=== PATIENT | male | born 1990 | race Caucasian/White ===

== ENCOUNTER 2016-03-22 17:56 | Inpatient (IN) | payer OTHER ==
[~2016-03-22] VITALS: Ht 152.4 cm; Wt 82.3 kg
[2016-03-22 18:33] VITALS: Ht 152.4 cm; Wt 82.3 kg
[2016-03-22] MEDS ORDERED: SOD CHLORIDE 0.9% 1,000 ML IV STA ×2 (18:40→22:02)
[2016-03-22] MEDS ORDERED: HYDROmorphONE 1 MG/ML SYG IV STA ×3 (18:40→22:02)
[2016-03-22] MEDS ORDERED: ONDANSETRON 4 MG INJ IV STA ×3 (18:40→22:02)
--- NOTE | 2016-03-22 19:20 | ERA ---
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 The patient states that the pain again to radiate throughout the entire abdomen. The pain was 10 out of 10 in intensity. The patient felt nauseous and had induced emesis which did not improve his symptoms. He stated there was roughly 5 episodes of nonbloody nonbilious emesis again that he had induced. The patient is wheelchair-bound as he is paralyzed from the waist down and the patient has an indwelling Miranda catheter that was recently changed 4 days ago at [facility]. He did not take any analgesic medication prior to arrival. He denies any recent or remote blunt or penetrating abdominal wall trauma. He has had no fevers no shaking or chills. He denies any chest pain or pressure that radiates to the neck arm back or jaw. He has never had any similar pain in the past ROS All systems reviewed and are negative except as per history of present illness. Medications Home Meds No Active Prescriptions or Reported Meds Allergies Allergies: Coded Allergies: No Known Allergy (Unverified , 03/22/16) PMhx/Soc History of Surgery: Yes (back and leg unspecified) Anesthesia Reaction: No Hx Neurological Disorder: Yes (spina bifida) Hx Respiratory Disorders: No Hx Cardiac Disorders: No Hx Psychiatric Problems: No Hx Miscellaneous Medical Probl: No Hx Alcohol Use: No Hx Substance Use: Yes (hx meth 5 years ago) Hx Tobacco Use: No Physical Exam Vitals Vital Signs Date Time Temp Pulse Resp B/P Pulse Ox O2 Delivery O2 Flow Rate FiO2 03/22/16 21:24 99.0 84 18 104/77 97 Room Air 03/22/16 19:09 100.1 78 18 108/82 97 Room Air 03/22/16 18:33 100.4 98 18 138/74 97 Physical Exam Constitutional:Well-developed. Well-nourished. Patient appeared to be in a significant amount discomfort secondary to pain HEENT:Normocephalic. Atraumatic.Pupils were equal round reactive to light. Dry mucous membranes.No tonsillar exudates. Neck: No nuchal rigidity. No lymphadenopathy. No posterior cervical spine tenderness or step-offs. Respiratory: Not using accessory muscles of respiration.Lungs were clear to auscultation bilaterally. No rhonchi. No rales. No wheezing. Cardiovascular: Regular rate regular rhythm.No murmurs. No rubs were appreciated.S1, S2 normal. Distal pulses are palpable 2+ bilaterally. GI: Abdomen was soft. Right upper quadrant tenderness and epigastric tenderness. Hypoactive bowel sounds. Muscle skeletal: Patient is paralyzed from the waist down with no movement of the bilateral lower extremities. Full range of motion of bilateral upper extremities peer Skin: No petechia, no purpura. No lesions on the palms or the soles of the feet. No maculopapular rash. Stage I ulcers of the lateral aspect of the bilateral lower extremities with no surrounding erythema warmth tenderness fluctuance or induration and no pain out of proportion no subcutaneous emphysema. Chronic decubitus ulcers stage III with no surrounding erythema warmth tenderness fluctuance or induration. NEURO: Patient was alert, awake, orientated x3.No facial droop. Patient is wheelchair-bound. Result Diagram: 03/22/16192003/22/161920 Results 24 hrs Laboratory Tests Test 03/22/16 19:21 03/22/16 20:16 Activated Partial Thromboplast Time 28.0Sec Alanine Aminotransferase (ALT/SGPT) 63IU/L Albumin 3.7g/dl Albumin/Globulin Ratio 1.00 Alkaline Phosphatase 552IU/L Amylase Level 70U/L Anion Gap 18 Aspartate Amino Transf (AST/SGOT) 118IU/L Band Neutrophils % 4.0% Basophils # 0.510^3/ul Basophils % 3.0% Blood Morphology Comment Blood Urea Nitrogen 10mg/dl Calcium Level 8.7mg/dl Carbon Dioxide Level 24mmol/L Chloride Level 108mmol/L Creatinine 0.55mg/dl Direct Bilirubin 0.00mg/dl Globulin 3.70g/dl Glucose Level 114mg/dl Hematocrit 34.5% Hemoglobin 11.0g/dl INR International Normalized Ratio 1.02 Indirect Bilirubin 0.1mg/dl Lactic Acid Level 2.5mmol/L Lipase 236U/L Lymphocytes # 2.010^3/ul Lymphocytes % 11.0% Mean Corpuscular Hemoglobin 23.9pg Mean Corpuscular Hemoglobin Concent 31.8g/dl Mean Corpuscular Volume 75.2fl Mean Platelet Volume 7.5fl Monocytes # 0.410^3/ul Monocytes % 2.0% Myelocytes # 0.2 Myelocytes % 1.0% Neutrophils # 14.110^3/ul Neutrophils % 79.0% Platelet Count 27435^3/UL Platelet Estimate PLT APPEAR INCREASED Potassium Level 4.4mmol/L Prothrombin Time 13.4Sec Prothrombin Time Ratio 1.0 Red Blood Count 4.5910^6/ul Red Cell Distribution Width 19.4% Sodium Level 146mmol/L Total Bilirubin 0.1mg/dl Total Protein 7.4g/dl Troponin I < 0.012ng/ml White Blood Count 17.810^3/ul Urine Bacteria MANY Urine Bilirubin NEGATIVE Urine Clarity CLEAR Urine Color YELLOW Urine Glucose NEGATIVE% Urine Hemoglobin 2+ Urine Ketones NEGATIVE Urine Leukocyte Esterase 3+ Urine Microscopic RBC 2-5/HPF Urine Microscopic WBC >200/HPF Urine Nitrite POSITIVE Urine Specific Berne 1.010 Urine Squamous Epithelial Cells FEW Urine Total Protein NEGATIVE Urine Urobilinogen 0.2 E.U./dL Urine pH 7.0 Current Medications Medications (Trade) Dose Ordered Sig/Fatoumata Route PRN Reason Start Time Stop Time Status Last Admin Dose Admin Sodium Chloride (NS) 1,000 ml @ 1,000 mls/hr Q1H STAT IV 03/22/16 18:40 03/22/16 19:39 DC 03/22/16 18:56 Hydromorphone HCl (Dilaudid) 1 mg ONCE STAT IV 03/22/16 18:40 03/22/16 18:41 DC 03/22/16 18:55 Ondansetron HCl (Zofran Inj) 4 mg ONCE STAT IV 03/22/16 18:40 03/22/16 18:41 DC 03/22/16 18:55 Acetaminophen (Tylenol Tab) 1,000 mg ONCE STAT PO 03/22/16 19:50 03/22/16 19:51 DC 03/22/16 19:56 Ibuprofen (Motrin) 800 mg ONCE ONCE PO 03/22/16 20:00 03/22/16 20:01 DC 03/22/16 19:56 IV Flush 10 ml 10 ml STK-MED ONCE .ROUTE 03/22/16 19:56 03/22/16 19:57 DC Sodium Chloride (NS) 100 ml @ ud STK-MED ONCE .ROUTE 03/22/16 19:56 03/22/16 19:57 DC Iodixanol (Visipaque Locm) 100 ml STK-MED ONCE .ROUTE 03/22/16 19:56 03/22/16 19:57 DC Sodium Chloride 2670 ml 2,670 ml BOLUS OVER 2 HOURS STAT IV* 03/22/16 20:16 03/22/16 20:18 DC 03/22/16 20:32 Vancomycin HCl 250 ml @ 125 mls/hr ONCE STAT IVPB 03/22/16 20:16 03/22/16 22:15 03/22/16 21:22 Cefepime HCl (Maxipime 2gm/50 ml (Pmx)) 50 ml @ 100 mls/hr ONCE STAT IVPB 03/22/16 20:16 03/22/16 20:45 DC 03/22/16 20:31 Hydromorphone HCl (Dilaudid) 1 mg ONCE STAT IV 03/22/16 20:16 03/22/16 20:18 DC 03/22/16 20:31 Ondansetron HCl (Zofran Inj) 4 mg ONCE STAT IV 03/22/16 20:16 03/22/16 20:18 DC 03/22/16 20:31 Procedures/MDM The patient presented to the emergency department with epigastric pain. My differential diagnosis included but was not limited to abdominal aortic aneurysm , choledocholithiasis, gallstone ileus, renal colic, pyelonephritis, pancreatitis, peptic ulcer disease, atypical myocardical infarction, mesenteric ischemia, GERD, pulmonary infarction. The patient was placed on a quality assurance monitor, continuous pulse oximetry and IV access was established by nursing staff. An EKG was obtained to rule out myocardial ischemia. There was no elevation of LFTs to suggest ductal obstruction, cholangitis, cholecystiitis or hepatitis. Given that the urinalysis did not show bilirubinuria, my suspicion for common duct obstruction or hepatitis was low. 12 Lead EKG tracing ordered and reviewed by myself showed: Sinus tachycardia of 102 bpm and no arrhythmia. HI interval normal. QRS duration normal. No ST segment elevation No ST segment depression. No changes consistent with acute ischemia. The patient's lactic acid was elevated, tachycardic, with leukocytosis and a low -grade fever. Therefore the patient was septic with 2 or more of the sirs criteria with suspected infection being a urinary tract infection. Patient's infectious symptoms have not stabilized and the patient is at risk of rapid decompensation. The patient will be admitted for careful hydration, antibiotic therapy, and infectious source control. Severe Sepsis Assessment: Infectious Source: Pyelonephritis End organ damage indicated by: Lactate > 2.0 mmol/L 30 ml/kg NS bolus Completed Initial Lactate: 2.5 Repeat Lactate pending I considered further perfusion assessment with CVP measurement, SCVO2, bedside ultrasound volume assessment, passive leg raise, trial of further fluid bolus. And preceded with IV fluids. The patient received IV vancomycin and ceftriaxone. I performed a CT scan of the abdomen which indicated the patient has chronic decubitus ulcers and chronic osteomyelitis. This is been unchanged from a previous CT scan. There is no evidence of small bowel obstruction today or surgical abdomen. The patient's Miranda catheter which have been placed at all of you indicated that this was only present in the urethra and not the bladder. Therefore this was advanced by nursing staff into the proper position. The patient will be admitted for intractable pain as he received multiple doses of opiate analgesic medication with no improvement of his symptoms. He will be admitted to the telemetry service under the care of Dr. Antoine. Departure Diagnosis: Primary Impression: Sepsis Qualified Code: A41.9 - Sepsis, due to unspecified organism Additional Impressions: Urinary tract infection Qualified Code: T83.511A - Urinary tract infection associated with indwelling urethral catheter, initial encounter Intractable abdominal pain Condition: Serious HALEIGH VOSS Mar 22, 2016 19:20
[2016-03-22 19:47] LABS: ALBUMIN 3.7 g/dl (3.3-4.9); CHLORIDE 108 mmol/L (97-110); INR 1.02; PROTIME 13.4 Sec (12.2-14.2)
[2016-03-22 19:48] LABS: HEMATOCRIT 34.5 % (42.0-52.0); MEAN CORPUSCULAR HEMOGLOBIN 23.9 pg (29.0-33.0); MEAN CORPUSCULAR HGB CONC 31.8 g/dl (32.0-37.0); MEAN CORPUSCULAR VOLUME 75.2 fl (82.0-101.0); MEAN PLATELET VOLUME 7.5 fl (7.4-10.4); PLATELET COUNT 718 10^3/UL (140-440); POTASSIUM 4.4 mmol/L (3.5-5.1); RED BLOOD COUNT 4.59 10^6/ul (4.70-6.10); RED CELL DISTRIBUTION WIDTH 19.4 % (11.5-14.5); SODIUM 146 mmol/L (135-144); UNCORRECTED WBC 17.8 10^3/ul (4.8-10.8); WHITE BLOOD COUNT 17.8 10^3/ul (4.8-10.8)
[2016-03-22 19:50] LABS: ALKALINE PHOSPHATASE 552 IU/L (42-121); AMYLASE 70 U/L (11-123); ANION GAP 18 (8-16); ASPARTATE AMINO TRANSFERASE 118 IU/L (15-46); BILIRUBIN,INDIRECT 0.1 mg/dl (0-1.1); BILIRUBIN,TOTAL 0.1 mg/dl (0.2-1.3); BLOOD UREA NITROGEN 10 mg/dl (7-20); CARBON DIOXIDE 24 mmol/L (21-31); CREATININE 0.55 mg/dl (0.61-1.24); GLUCOSE 114 mg/dl (70-220); TOTAL PROTEIN 7.4 g/dl (6.1-8.1)
[2016-03-22] MEDS ORDERED: ACETAMINOPHEN 500 MG TAB PO STA (19:50)
[2016-03-22 19:51] LABS: ALANINE AMINOTRANSFERASE 63 IU/L (13-69); CALCIUM 8.7 mg/dl (8.4-10.2)
[2016-03-22 19:52] LABS: CONDITION 1; LH ANALYZER COMMENTS 1
[2016-03-22] MEDS ORDERED: IODIXANOL LOCM 100 ML BTL ONE (19:56)
[2016-03-22] MEDS ORDERED: SOD CHLORIDE 0.9% 100 ML ONE (19:56)
[2016-03-22] MEDS ORDERED: IBUPROFEN 800 MG TAB PO ONE (20:00)
[2016-03-22 20:03] LABS: TROPONIN-I < 0.012 ng/ml (0.00-0.12)
[2016-03-22] MEDS ORDERED: VANCOMYCIN 1 GM (PMX) 250 ML IVPB STA (20:16)
[2016-03-22] MEDS ORDERED: SODIUM CHLORIDE 0.9% 1L BAG IV* STA (20:16)
[2016-03-22] MEDS ORDERED: CEFEPIME 2GM/50 ML (PMX) 50 ML IVPB STA (20:16)
[2016-03-22 20:39] LABS: ADD UMIC YES; URINE BILIRUBIN (Dip) NEGATIVE (NEGATIVE); URINE BLOOD (Dip) 2+ (NEGATIVE); URINE COLOR YELLOW (YELLOW); URINE GLUCOSE (Dip) NEGATIVE (NEGATIVE); URINE KETONES (Dip) NEGATIVE (NEGATIVE); URINE LEUKOCYTE ESTERASE (Dip) 3+ (NEGATIVE); URINE NITRITE (Dip) POSITIVE (NEGATIVE); URINE TOTAL PROTEIN (Dip) NEGATIVE (NEGATIVE); URINE UROBILINOGEN (Dip) 0.2 E.U./dL (0.1-1.0)
[2016-03-22 21:13] LABS: BACTERIA,URINE MANY; SQUAMOUS EPITHELIAL CELL,UR FEW
[2016-03-22 21:23] LABS: BASOPHIL # 0.5 10^3/ul (0.0-0.1); MONOCYTE # 0.4 10^3/ul (0.3-0.9); MYELOCYTES # 0.2; NEUTROPHIL # 14.1 10^3/ul (1.6-7.5)
[2016-03-22 21:25] LABS: PLATELET ESTIMATE PLT APPEAR INCREASED
--- NOTE | 2016-03-22 21:53 | RADRPT ---
PROCEDURE: CT abdomen and pelvis with contrast. CLINICAL INDICATION: Abdominal pain. TECHNIQUE: CT scan of the abdomen and pelvis with contrast was performed. Coronal and sagittal im ages were also reformatted. 100 cc Omnipaque-300 intravenous contrast was administered without comp lication. Total exam CTDIvol = 16.44 mGy and DLP = 941.02 mGy-cm. COMPARISON: Noncontrast CT 08/24/2015 FINDINGS: Visualized lower thorax: Mild dependent subsegmental atelectasis is present with slight elevation of the right hemidiaphragm. There is no evidence for pleural effusion. Liver, gallbladder, pancreas and spleen: Normal hepatic contour, attenuation in size. There is no evidence for liver mass or ductal dilatation. The gallbladder is mildly distended but otherwise unr emarkable. No common bile duct dilatation is evident. The pancreas is normal. The spleen is samantha l, not enlarged. Adrenal glands and genitourinary system: The adrenal glands are normal bilaterally. The kidneys ar e normal in size, contour and attenuation with no evidence for masses, calculi or hydronephrosis. T he ureters are unremarkable. The urinary bladder has a wall thickening and irregular contour possib ly bladder diverticula and related to neurogenic bladder. There is no evidence of calculus or mass. In the region of the penile urethra there is a Miranda catheter, the bulb inflated, the catheter mal positioned. The prostate gland is small and unremarkable. Gastrointestinal system: The stomach, small bowel and large intestine are normal in caliber. There is no evidence of obstruction, ileus or inflammation. The appendix and surrounding fat are normal. A marked amount of fecal debris is noted within the colon, predominate the descending segment, find ings concerning for constipation. There is no evidence of colitis. Peritoneum, retroperitoneum, vessels and lymph nodes: The abdominal aorta is normal in caliber. A shunt catheter is again noted coursing along the right anterior abdominal wall in the subcutaneous f at entering the abdominal cavity near the umbilicus through the right rectus abdominus muscle, the d istal tip of the catheter pointing anteriorly and to the left in the mid left upper quadrant. Infer ior vena cava is normal in caliber. Bilateral external iliac chain and inguinal adenopathy is prese nt, increased compared to the previous examination. A left external iliac chain lymph node is estim ated at 1.8 x 3.3 cm (series 3 image 168) previously 2.1 x 0.9 cm. A right-sided external iliac rosetta in lymph node is also larger in size now measuring 2.7 x 1.5 cm (axial image 175) this previously me asured 1.5 x 1.1 cm. No intraperitoneal ascites or abscess is present. There is no pneumoperitoneu m. Osseous structures and musculoskeletal system: Marked deformity of the lumbosacral spine is again n oted with spinal dysraphism, spina bifida, and associated atrophy of the paraspinous and gluteus mus cles. 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 There is no evidence of acute fractu re or dislocation. The sacrum and coccyx have some you erosive changes at the sacrococcygeal juncti on concerning for chronic osteomyelitis adjacent to the large decubitus ulcer. A large decubitus ul cer is again seen extending to the bone of the proximal right femur posterior to the right hip joint , findings also similar to the previous exam. There is no evidence of subcutaneous abscess. RPTAT:HJJR IMPRESSION: 1. Malpositioned Miranda catheter the bulb inflated within the penile urethra and repositioning is re commended. 2. Urinary bladder wall thickening and irregularity likely neurogenic bladder, underline cystitis i s difficult to exclude. 3. Interval increase in pelvic and inguinal lymphadenopathy compared to the prior exam of 6 probably lymphadenitis but other etiologies including neoplasm, although believed to be less likel y, are considerations. 4. Constipation pattern without evidence of bowel obstruction or ileus. 5. Shunt catheter is continuous and remains in satisfactory position. 6. Spinal dysraphism, spina bifida with chronic decubitus ulcers posterior to the sacrum and coccyx and right proximal femur with chronic osteomyelitis at the sacrococcygeal junction suggested. 7. Results are discussed by telephone with Dr. Garcia at 21:51 Physician Karey Date Time Electronically viewed and signed by Physician Karey on 03/22/2016 21:53 /
[2016-03-22] MEDS ORDERED: ONDANSETRON 4 MG INJ IV PRN (22:30)
[2016-03-22] MEDS ORDERED: ACETAMINOPHEN 325 MG TAB PO PRN (22:30)
[2016-03-23] VITALS (11 sets, daily range): BP systolic 99–118; BP diastolic 61–71; PULSE 73–95; RESP 16–20; TEMP 99
[2016-03-23] MEDS ORDERED: morphine 4 MG/ML VIAL IV PRN (02:00)
[2016-03-23] MEDS ORDERED: ACETAMINOPHEN 325 MG TAB PO PRN (02:00)
[2016-03-23] MEDS ORDERED: CIPROFLOXACIN 400MG/D5W 200 ML IVPB SCH (02:00)
[2016-03-23] MEDS ORDERED: CIPROFLOXACIN 400 MG in D5W 200 ML IVPB SCH (03:00)
[2016-03-23] MEDS: SOD CHLORIDE 0.9% 1,000 ML IV SCH ×3 (04:07→22:00)
[2016-03-23] MEDS: KETOROLAC 30 MG INJ IV PRN ×2 (04:19→14:25)
[2016-03-23] MEDS ORDERED: VANCOMYCIN IV PER PHARMACY XX SCH (07:00)
--- NOTE | 2016-03-23 08:40 | HP ---
DATE OF ADMISSION: 03/22/2016 CHIEF COMPLAINT: Abdominal pain. HISTORY OF PRESENT ILLNESS: The patient is a 25-year-old male with a history of spina bifida who is wheelchair bound and paralyzed from the waist down and who presented to the emergency department wi th abdominal pain. Pain is mainly located in the epigastric area and started a few hours prior to a rrival. There was associated nausea, and he vomited by self-inducing but without relief of his symp toms. He denied any fevers, chills, chest pain, shortness of breath, or recent trauma. The patient has indwelling Miranda catheter that he said was changed to 4 days ago at another hospital. I believ e it was [facility]. When he presented to the ER, he was febrile with a temperature of 100.4, heart rate 98. Otherwise, the rest of his vitals were stable. Laboratory value shows a WBC of 18, hemoglobin 11, with MCV of 75, platelet count 718. Sodium 146. AST 118, alkaline phosphatase 552, and lactic acid 2.5. CT ab domen and pelvis with contrast was done that showed urinary bladder wall thickening and irregularity , likely neurogenic bladder. Another finding was interval increase in the pelvic and inguinal lymph adenopathy compared to the prior exam from August 2015, probable lymphadenitis, but other etiologies i ncluding neoplasm also less likely are consideration. Also noted was constipation pattern without e vidence of ileus or bowel obstruction. Also, CAT scan showed spina bifida with chronic decubitus ul cer posterior to the sacrum and coccyx and right proximal femur with chronic osteomyelitis at the sa crococcygeal junction. The patient received pain medication and was started on Vancomycin and cefep betty. His urinalysis actually shows severe UTI. REVIEW OF SYSTEMS: A 12-point review was performed and is negative except as mentioned in HPI. PAST MEDICAL HISTORY: As per HPI. SOCIAL HISTORY: Denies history of tobacco, alcohol, or illicit drug use. ALLERGIES: MORPHINE. HOME MEDICATIONS: None listed. PHYSICAL EXAMINATION: VITAL SIGNS: Blood pressure 117/71, heart rate 84, respiratory rate 18, temperature 99.1, oxygen sa turation 97% on room air. GENERAL: The patient lying in bed with sign of discomfort from pain. HEENT: Normocephalic, atraumatic. Extraocular muscles intact. CARDIOVASCULAR: Regular rate and rhythm with no extra sounds. LUNGS: Clear. ABDOMEN: Soft. There is tenderness in the epigastric area with no guarding, no rigidity, no reboun d tenderness. There are positive bowel sounds. EXTREMITIES: The patient is paralyzed from the waist down and unable to move his bilateral lower ex tremities. There is an ulcer on bilateral lower extremity with erythema. BACK: There is a stage III decubitus ulcer with erythema, and the area is also tender. LABORATORY: Pertinent positives as mentioned in the HPI. Urinalysis with severe UTI. IMAGING: CT abdomen and pelvis with results as mentioned in the HPI. IMPRESSION: 1. Sepsis as evidenced by leukocytosis and fever, secondary to severe urinary tract infection, decu bitus ulcer, as well as left lower extremity ulcer. 2. Severe urinary tract infection. 3. History of spina bifida with below waist paralysis and wheelchair bound. 4. Microcytic anemia, evaluate for iron deficiency in 5. Chronic osteomyelitis at the sacrococcygeal junction. 6. Neurogenic bladder with indwelling Miranda. 7. Mild hypernatremia. 8. Elevated alkaline phosphatase. 9. Lactic acidosis. PLAN: He will be placed on a broad spectrum antibiotic. We will follow up on the blood culture and urine culture results, and we will also attempt to send a culture from his decubitus ulcer. We sage l place a wound care consult. Given chronic osteomyelitis noted at the sacrococcygeal junction, we will consider an ortho consult, but I doubt that there will be any type of orthopedic intervention. We will, however, place an ID consult. We will provide pain medication as needed. Further workup and management per clinical course closely. Dictated By: RAJAN VINCENT/KATY Conf#: [id number] DID#: [id number]
[2016-03-23] MEDS: CEFEPIME 1GM/50 ML (PMX) 50 ML IVPB SCH ×2 (09:19→21:18)
[2016-03-23] MEDS: VANCOMYCIN 1 GM in NS 250 ML IVPB SCH ×2 (11:11→18:47)
[2016-03-24] VITALS (10 sets, daily range): BP systolic 114–120; BP diastolic 63–79; PULSE 70–96; RESP 18–20
[2016-03-24] MEDS: VANCOMYCIN 1 GM in NS 250 ML IVPB SCH ×2 (02:11→10:00)
[2016-03-24] MEDS: SOD CHLORIDE 0.9% 1,000 ML IV SCH ×3 (08:00→18:00)
[2016-03-24] MEDS: CEFEPIME 1GM/50 ML (PMX) 50 ML IVPB SCH ×2 (08:28→20:33)
--- NOTE | 2016-03-24 11:07 | PN ---
Date/Time of Note Date/Time of Note DATE: 03/24/16 TIME: 11:05 Assessment/Plan VTE Prophylaxis VTE Prophylaxis Intervention: SCD's, other (pt refusing SQ heparin/Lovenox ) Lines/Catheters IV Catheter Type (from Nrsg): Peripheral IV Urinary Cath still in place: Yes Reason Cath still needed: skin wounds contaminated by urine Assessment/Plan Assessment/Plan 1. Sepsis as evidenced by leukocytosis and fever, secondary to severe urinary tract infection, decubitus ulcer, as well as left lower extremity ulcer. 2. Severe urinary tract infection. 3. History of spina bifida with below waist paralysis and wheelchair bound. 4. Microcytic anemia, evaluate for iron deficiency in 5. Chronic osteomyelitis at the sacrococcygeal junction. 6. Neurogenic bladder with indwelling Miranda. 7. Mild hypernatremia. 8. Elevated alkaline phosphatase. 9. Lactic acidosis. Plan: IV abx, pt refusing vanco level- will d/c vancomycin BP stable afebrile ID consult requested - Counselled multiple times for Compliance SCD for DVT prophylaxis Subjective 24 Hr Interval Summary Free Text/Dictation urien cx grew Morganella, BP stable, afebrile, Exam/Review of Systems Vital Signs Vitals Vital Signs Date Time Temp Pulse Resp B/P Pulse Ox O2 Delivery O2 Flow Rate FiO2 03/24/16 08:38 89 03/24/16 00:00 98.6 20 120/63 94 03/23/16 20:12 Room Air Intake and Output 03/23/16 03/23/16 03/24/16 15:00 23:00 07:00 Intake Total 120 ml 1900 ml 1050 ml Output Total 1000 ml 800 ml Balance 120 ml 900 ml 250 ml Exam GENERAL: The patient lying in bed with sign of discomfort from pain. HEENT: Normocephalic, atraumatic. Extraocular muscles intact. CARDIOVASCULAR: Regular rate and rhythm with no extra sounds. LUNGS: Clear. ABDOMEN: Soft. There is tenderness in the epigastric area with no guarding, no rigidity, no rebound tenderness. There are positive bowel sounds. EXTREMITIES: The patient is paralyzed from the waist down and unable to move his bilateral lower extremities. There is an ulcer on bilateral lower extremity with erythema. BACK: There is a stage III decubitus ulcer with erythema, and the area is also tender. Results Result Diagram: 03/22/16192003/22/161920 Medications Medications Current Medications Sodium Chloride (NS) 1,000 ml @ 100 mls/hr Q10H IV Last administered on 04:07; Admin Dose 100 MLS/HR; Start 03/23/16 at 02:00 Acetaminophen (Tylenol Tab) 650 mg Q4H PRN PO PAIN AND OR ELEVATED TEMP; Start 03/23/16 at 02:00 Morphine Sulfate (morphine) 3 mg Q4H PRN IV PAIN; Start 03/23/16 at 02:00; Status Future Hold Ketorolac Tromethamine 30 mg 30 mg Q6H PRN IV PAIN Last administered on 14:25; Admin Dose 30 MG; Start 03/23/16 at 04:30; Stop 03/26/16 at 04:29 Cefepime HCl 50 ml @ 100 mls/hr Q12 IVPB Last administered on 03/24/16 08:28; Admin Dose 100 MLS/HR; Start 03/23/16 at 09:00 Vancomycin HCl (Vancocin) 250 ml @ 125 mls/hr Q8H IVPB Last administered on 02:11; Admin Dose 125 MLS/HR; Start 03/23/16 at 10:00 LISSET WISE MD Mar 24, 2016 11:07
[2016-03-25] VITALS (11 sets, daily range): BP systolic 102–115; BP diastolic 52–72; PULSE 66–95; RESP 18–20
[2016-03-25] MEDS: SOD CHLORIDE 0.9% 1,000 ML IV SCH ×2 (04:00→14:00)
--- NOTE | 2016-03-25 05:08 | CONS ---
DATE OF ADMISSION: 03/22/2016 DATE OF CONSULTATION: REFERRING PHYSICIAN: RAJAN SMITH MD HISTORY OF PRESENT ILLNESS: The patient is a 25-year-old male. The patient had presented t o the ER with a chief complaint of diffuse epigastric pain, onset 1 hour prior to admission which ra diated to his entire abdomen. He had nausea and vomiting of nonbilious fluid, at least 8 times. He also had noted that he had some constipation, but had a bowel movement on the morning of admission. On admission, his white count was 17,800, hematocrit 34%, platelets 718,000. White count had 4 band s. Urinalysis had a specific gravity of 1010 and pH of 7. There were +3 leukocytes, +3 nitrates, 2 00 WBCs, many bacteria. Elevated alkaline phosphatase of 552, albumin 3.7, lipase 237. The patient had a CT scan which revealed chronic osteomyelitis at the sacrococcygeal junction. The patient had increased iliac lymph nodes, particularly on the left. The patient was put on treatment with vancomycin and cefepime. He has enjoyed relief of his abdomin al pain and other symptoms since the time of this dictation. The patient indicated that he was at [facility] for 7 months receiving intravenous antibiotics for decubitus ulcers as well as sacra l osteomyelitis. The patient denies fever, night sweats or chills prior to present illness. He has been home for only a few weeks and lives with his family in [place]. He states that prior t o coming to [facility], he went to [facility]. They placed a PICC line in his arm on the left side and then pulled the PICC line out and gave him oral antibiotics to take . PAST MEDICAL HISTORY: The patient has a past medical history of spina bifida with paraplegia and ne urogenic bladder. History of urinary tract infections and decubitus ulcers. He has no history of di abetes or heart disease. PHYSICAL EXAMINATION GENERAL: Reveals a well-developed, fair-skinned, hirsute male lying in bed with his bed ignacio vated 45 degrees. He is on a suspension mattress. He is rather laconic and has somewhat flat affec t. There is an intravenous line in his right wrist. VITAL SIGNS: Stable. CHEST: Clear to auscultation. NECK: There is no jugular venous distention. HEART: Regular without gallop, murmur or rub. ABDOMEN: Soft. No palpable organs, masses or tenderness. GENITOURINARY: There was a Miranda catheter in place draining yellow urine. NEUROLOGIC: The patient is obviously paraplegic. He denies any drainage or discomfort in the sacral area or from any other area on his skin. INITIAL IMPRESSION: Probable sacrococcygeal osteomyelitis. Spina bifida occulta with paraplegia and neurogenic bladder. He has history of frequent urinary tract infections. He presently had a urinar y tract infection which has multiple organisms, greater than 10 to the 5th mixed organism and 20 of resistant Morganella. RECOMMENDATIONS: I would obtain an MRI of the patient's sacrococcygeal area to confirm osteomyelitis with contrast. Also, if this appears to be the case, I would suggest discontinuing antibiotics for about 24 to 48 hours and then do a percutaneous biopsy and culture of the affected area so that we know what antibiotics would be appropriate as it would appear that after 7 months of intravenous ant ibiotics, he is harboring a resistant organism. I recommend obtaining a CBC and a sedimentation rat e and keep the patient well hydrated. Dictated By: Mary Kate HUNT MD for MARIUM BROWN/NTS Conf#: [id number] DID#: [id number]
[2016-03-25] MEDS: CEFEPIME 1GM/50 ML (PMX) 50 ML IVPB SCH ×2 (09:50→20:50)
--- NOTE | 2016-03-25 11:01 | PN ---
Date/Time of Note Date/Time of Note DATE: 03/25/16 TIME: 10:58 Assessment/Plan VTE Prophylaxis VTE Prophylaxis Intervention: SCD's Lines/Catheters IV Catheter Type (from Nrsg): Saline Lock Urinary Cath still in place: Yes Reason Cath still needed: skin wounds contaminated by urine Assessment/Plan Assessment/Plan ASSESSMENT: 1. Sepsis as evidenced by leukocytosis and fever, secondary to severe urinary tract infection, decubitus ulcer, as well as left lower extremity ulcer. 2. Severe urinary tract infection. 3. History of spina bifida with below waist paralysis and wheelchair bound. 4. Microcytic anemia, evaluate for iron deficiency in 5. Chronic osteomyelitis at the sacrococcygeal junction. 6. Neurogenic bladder with indwelling Miranda. 7. Mild hypernatremia. 8. Elevated alkaline phosphatase. 9. Lactic acidosis. Plan: ID following, BP stable pt refused AM labs, MRI has been ordered MRI sacrum/coccyx has been ordered to evaluate for OM Counselled multiple times for Compliance SCD for DVT prophylaxis Subjective 24 Hr Interval Summary Free Text/Dictation c/o pain, Pt refused AM labs, Exam/Review of Systems Vital Signs Vitals Vital Signs Date Time Temp Pulse Resp B/P Pulse Ox O2 Delivery O2 Flow Rate FiO2 03/25/16 08:22 77 03/25/16 07:41 03/24/16 20:00 Room Air Intake and Output 03/24/16 03/24/16 03/25/16 15:00 23:00 07:00 Intake Total 50 ml 1300 ml 650 ml Output Total 900 ml 1350 ml Balance 50 ml 400 ml -700 ml Exam GENERAL: The patient lying in bed with sign of discomfort from pain. HEENT: Normocephalic, atraumatic. Extraocular muscles intact. CARDIOVASCULAR: Regular rate and rhythm with no extra sounds. LUNGS: Clear. ABDOMEN: Soft. There is tenderness in the epigastric area with no guarding, no rigidity, no rebound tenderness. There are positive bowel sounds. EXTREMITIES: The patient is paralyzed from the waist down and unable to move his bilateral lower extremities. There is an ulcer on bilateral lower extremity with erythema. BACK: There is a stage III decubitus ulcer with erythema, and the area is also tender. Results Result Diagram: 03/22/16192003/22/161920 Medications Medications Current Medications Sodium Chloride (NS) 1,000 ml @ 100 mls/hr Q10H IV Last administered on 04:00; Admin Dose 100 MLS/HR; Start 03/23/16 at 02:00 Acetaminophen (Tylenol Tab) 650 mg Q4H PRN PO PAIN AND OR ELEVATED TEMP; Start 03/23/16 at 02:00 Morphine Sulfate (morphine) 3 mg Q4H PRN IV PAIN; Start 03/23/16 at 02:00; Status Future Hold Ketorolac Tromethamine 30 mg 30 mg Q6H PRN IV PAIN Last administered on 14:25; Admin Dose 30 MG; Start 03/23/16 at 04:30; Stop 03/26/16 at 04:29 Cefepime HCl (Maxipime 1gm/50 ml (Pmx)) 50 ml @ 100 mls/hr Q12 IVPB Last administered on 03/25/16 09:50; Admin Dose 100 MLS/HR; Start 03/23/16 at 09:00 LISSET WISE MD Mar 25, 2016 11:01
--- NOTE | 2016-03-25 14:01 | CONS ---
Date/Time of Note Date/Time of Note DATE: 03/25/16 TIME: 13:57 Assessment/Plan Assessment/Plan Chief Complaint/Hosp Course Subjective: No acute changes, alert, denies pain, no fevers Abx: Cefepime PHYSICAL EXAMINATION GENERAL: Reveals a well-developed, male lying in bed VITAL SIGNS: Stable. CHEST: Clear to auscultation. NECK: There is no jugular venous distention. HEART: Regular without gallop, murmur or rub. ABDOMEN: Soft. No palpable organs, masses or tenderness. GENITOURINARY: There was a Miranda catheter in place draining yellow urine. NEUROLOGIC: The patient is obviously paraplegic. He denies any drainage or discomfort in the sacral area or from any other area on his skin. Assessment: 1. Sacral decub, probable OM 2. Paraplegia 3. Hx spinal bifida 4. Noncompliance Plan: Add Zyvox, continue Cefepime, check wound cx, consider MRI, local wound cx , off load ?surgical eval for possible debridement DW staff Problems: Consultation Date/Type/Reason Admit Date/Time Mar 22, 2016 at 22:01 Initial Consult Date Type of Consultation: id Referring Provider: LISSET WISE MD Exam/Review of Systems Vital Signs Vitals Vital Signs Date Time Temp Pulse Resp B/P Pulse Ox O2 Delivery O2 Flow Rate FiO2 03/25/16 13:41 98.4 82 18 115/65 96 03/24/16 20:00 Room Air Intake and Output 03/24/16 03/24/16 03/25/16 15:00 23:00 07:00 Intake Total 50 ml 1300 ml 650 ml Output Total 900 ml 1350 ml Balance 50 ml 400 ml -700 ml Results Result Diagram: 03/22/16192003/22/161920 Medications Medications Current Medications Sodium Chloride (NS) 1,000 ml @ 100 mls/hr Q10H IV Last administered on t 04:00; Admin Dose 100 MLS/HR; Start 03/23/16 at 02:00 Acetaminophen (Tylenol Tab) 650 mg Q4H PRN PO PAIN AND OR ELEVATED TEMP; Start 03/23/16 at 02:00 Morphine Sulfate (morphine) 3 mg Q4H PRN IV PAIN; Start 03/23/16 at 02:00; Status Future Hold Ketorolac Tromethamine 30 mg 30 mg Q6H PRN IV PAIN Last administered on 14:25; Admin Dose 30 MG; Start 03/23/16 at 04:30; Stop 03/26/16 at 04:29 Cefepime HCl (Maxipime 1gm/50 ml (Pmx)) 50 ml @ 100 mls/hr Q12 IVPB Last administered on 03/25/16 09:50; Admin Dose 100 MLS/HR; Start 03/23/16 at 09:00 HARJINDER MAKI NP Mar 25, 2016 14:01
[2016-03-25 16:37] LABS: BASOPHIL # 0.1 10^3/ul (0.0-0.1); BASOPHILS % 0.7 % (0.0-2.0); EOSINOPHILS # 0.4 10^3/ul (0.0-0.5); EOSINOPHILS % 4.3 % (0.0-7.0); HEMATOCRIT 35.3 % (42.0-52.0); HEMOGLOBIN 11.3 g/dl (14.0-18.0); LYMPHOCYTES # 2.2 10^3/ul (0.8-2.9); LYMPHOCYTES % 25.7 % (15.0-51.0); MEAN CORPUSCULAR HEMOGLOBIN 23.8 pg (29.0-33.0); MEAN CORPUSCULAR VOLUME 74.4 fl (82.0-101.0); MEAN PLATELET VOLUME 7.6 fl (7.4-10.4); MONOCYTE # 0.4 10^3/ul (0.3-0.9); MONOCYTES % 4.3 % (0.0-11.0); NEUTROPHIL # 5.7 10^3/ul (1.6-7.5); PLATELET COUNT 639 10^3/UL (140-440); RED BLOOD COUNT 4.75 10^6/ul (4.70-6.10); RED CELL DISTRIBUTION WIDTH 20.2 % (11.5-14.5); UNCORRECTED WBC 8.7 10^3/ul (4.8-10.8); WHITE BLOOD COUNT 8.7 10^3/ul (4.8-10.8)
[2016-03-25 16:39] LABS: CONDITION 1; LH ANALYZER COMMENTS 1
[2016-03-25 16:50] LABS: INR 1.03; POTASSIUM 4.6 mmol/L (3.5-5.1); PROTIME 13.5 Sec (12.2-14.2); PT RATIO 1.1
[2016-03-25 16:51] LABS: PARTIAL THROMBOPLASTIN TIME 29.7 Sec (25.0-35.0)
[2016-03-25 16:52] LABS: CREATININE 0.49 mg/dl (0.61-1.24)
[2016-03-25 16:53] LABS: CALCIUM 8.9 mg/dl (8.4-10.2)
[2016-03-25] MEDS: ZYVOX 600 MG TAB PO SCH (20:50)
--- NOTE | 2016-03-25 21:49 | RADRPT ---
PROCEDURE: MRI sacrum without and with contrast CLINICAL INDICATION: Spina bifida. Sacrococcygeal osteomyelitis TECHNIQUE: The sacrum and coccyx are evaluated with T1 sequences and all three planes as well as a xial and coronal STIR series. An additional sagittal T2 fat saturation series is obtained. Followin g the intravenous injection of 10 ml Magnevist, sagittal and axial T1 fat suppressed sequences are o btained COMPARISON: CT abdomen and pelvis 03/22/2016 FINDINGS: Osseous structures: Abnormal low T1 and high T2 signal with enhancement is demonstrated in the S4 a nd S5 segments extending into the first 3 segments of the coccyx, findings compatible with osteomyel itis and erosion, the extent of the abnormality 8 at 2 cm in greatest cranial caudal dimension. Fat deposition within the S3 segment. The signal intensity within the upper sacrum and lower vertebral bodies of the lumbar spine are normal. The axial images best demonstrate the the pain defects of t he posterior elements consistent with known spinal dysraphism, no meningocele is evident. Soft tissues: Ulceration and induration of the fat overlying the sacrum and coccyx is present consis tent with cellulitis and extension to the sacrococcygeal junction. There is no evidence however for an abscess. The gluteal musculature is atrophic. The iliopsoas muscles are fatty replaced. There is no presacral abscess. RPTAT:HJJR IMPRESSION: 1. Pattern consistent with a stage IV decubitus ulcer posterior to the sacrococcygeal junction with signal alteration and enhancement in the distal sacrum and proximal coccyx for an estimated 2 cm ethylbenzene cracking supervisor nial caudal dimension consistent with osteomyelitis. No abscess is demonstrated. 2. Spina bifida of the visualized lower lumbar spine with muscle atrophy. Physician Karey Date Time Electronically viewed and signed by Physician Karey on 03/25/2016 21:48 /
[2016-03-26] VITALS (8 sets, daily range): BP systolic 105–119; BP diastolic 56–84; PULSE 71–102; RESP 16–20
[2016-03-26] MEDS: SOD CHLORIDE 0.9% 1,000 ML IV SCH ×3 (00:46→20:59)
[2016-03-26] MEDS: CEFEPIME 1GM/50 ML (PMX) 50 ML IVPB SCH ×2 (09:00→20:54)
[2016-03-26] MEDS: ZYVOX 600 MG TAB PO SCH ×2 (09:00→20:55)
--- NOTE | 2016-03-26 12:58 | PN ---
Date/Time of Note Date/Time of Note DATE: 03/26/16 TIME: 12:56 Assessment/Plan VTE Prophylaxis VTE Prophylaxis Intervention: SCD's Lines/Catheters IV Catheter Type (from Nrsg): Peripheral IV Urinary Cath still in place: Yes Reason Cath still needed: skin wounds contaminated by urine Assessment/Plan Assessment/Plan 1. Sepsis as evidenced by leukocytosis and fever, secondary to severe urinary tract infection, decubitus ulcer, as well as left lower extremity ulcer. 2. Severe urinary tract infection. 3. History of spina bifida with below waist paralysis and wheelchair bound. 4. Microcytic anemia, evaluate for iron deficiency in 5. Chronic osteomyelitis at the sacrococcygeal junction. 6. Neurogenic bladder with indwelling Miranda. Plan: ID following, BP stable pt refused AM labs, MRI has been ordered - but he refused X ray showed OM DOwngrade to med/surge floor to evaluate for I & D Counselled multiple times for Compliance SCD for DVT prophylaxis Subjective 24 Hr Interval Summary Free Text/Dictation pt refused MRI , X ray showed OM , I called for Debridement of wound Exam/Review of Systems Vital Signs Vitals Vital Signs Date Time Temp Pulse Resp B/P Pulse Ox O2 Delivery O2 Flow Rate FiO2 03/26/16 12:06 85 03/26/16 11:43 98.3 18 105/65 96 03/24/16 20:00 Room Air Intake and Output 03/25/16 03/25/16 03/26/16 15:00 23:00 07:00 Intake Total 950 ml 550 ml Output Total 1200 ml 1000 ml Balance -250 ml -450 ml Exam GENERAL: The patient lying in bed with sign of discomfort from pain. HEENT: Normocephalic, atraumatic. Extraocular muscles intact. CARDIOVASCULAR: Regular rate and rhythm with no extra sounds. LUNGS: Clear. ABDOMEN: Soft. There is tenderness in the epigastric area with no guarding, no rigidity, no rebound tenderness. There are positive bowel sounds. EXTREMITIES: The patient is paralyzed from the waist down and unable to move his bilateral lower extremities. There is an ulcer on bilateral lower extremity with erythema. BACK: There is a stage III decubitus ulcer with erythema, and the area is also tender. Results Result Diagram: 03/25/16 1630 03/25/16 1630 Results 24 hrs Laboratory Tests Test 03/25/16 16:30 Activated Partial Thromboplast Time 29.7 Anion Gap 17 H Basophils # 0.1 Basophils % 0.7 Blood Morphology Comment Blood Urea Nitrogen 6 L Calcium Level 8.9 Carbon Dioxide Level 21 Chloride Level 109 Creatinine 0.49 L Eosinophils # 0.4 Eosinophils % 4.3 Erythrocyte Sedimentation Rate 23 H Glucose Level 97 Hematocrit 35.3 L Hemoglobin 11.3 L INR International Normalized Ratio 1.03 Lymphocytes # 2.2 Lymphocytes % 25.7 Mean Corpuscular Hemoglobin 23.8 L Mean Corpuscular Hemoglobin Concent 32.0 Mean Corpuscular Volume 74.4 L Mean Platelet Volume 7.6 Monocytes # 0.4 Monocytes % 4.3 Neutrophils # 5.7 Neutrophils % 65.0 Nucleated Red Blood Cells # 0.0 Nucleated Red Blood Cells % 0.0 Platelet Count 639 H Potassium Level 4.6 Prothrombin Time 13.5 Prothrombin Time Ratio 1.1 Red Blood Count 4.75 Red Cell Distribution Width 20.2 H Sodium Level 142 White Blood Count 8.7 # Medications Medications Current Medications Sodium Chloride (NS) 1,000 ml @ 100 mls/hr Q10H IV Last administered on 00:46; Admin Dose 100 MLS/HR; Start 03/23/16 at 02:00 Acetaminophen (Tylenol Tab) 650 mg Q4H PRN PO PAIN AND OR ELEVATED TEMP; Start 03/23/16 at 02:00 Morphine Sulfate 3 mg 3 mg Q4H PRN IV PAIN; Start 03/23/16 at 02:00; Status Future Hold Cefepime HCl (Maxipime 1gm/50 ml (Pmx)) 50 ml @ 100 mls/hr Q12 IVPB Last administered on 03/25/16 20:50; Admin Dose 100 MLS/HR; Start 03/23/16 at 09:00 Linezolid (Zyvox) 600 mg BID PO Last administered on 03/25/16 20:50; Admin Dose 600 MG; Start 03/25/16 at 21:00 LISSET WISE MD Mar 26, 2016 12:58
--- NOTE | 2016-03-26 15:45 | PN ---
DATE: 03/26/2016 SUBJECTIVE: No acute changes. The patient is alert, looks comfortable. Denies pain. No fevers. ANTIMICROBIALS: 1. Cefepime. 2. Zyvox. DIAGNOSTICS: X-ray of the sacrum revealed evidence for osteomyelitis. No laboratories today. PHYSICAL EXAMINATION: GENERAL: Ill-appearing young man who is lying comfortably in bed. HEENT: Head atraumatic, normocephalic. Sclerae anicteric. Buccal mucosa pink. NECK: Supple. CHEST: Rise symmetrical. Breath sounds clear. HEART: S1, S2. ABDOMEN: Soft, bowel tones present. EXTREMITIES: With lower extremities wasting. ASSESSMENT: 1. Sacral decubitus with osteomyelitis. 2. Medical noncompliance. 3. History of spina bifida. 4. Paraplegia. 5. Bacteriuria with urine culture growing multidrug resistant Morganella morganii, but only 10,000 colonies likely colonized PLAN: The patient remains stable. Continue present care. PLAN: Await for wound cultures. Continue local wound care. Anticipate treating with long-term IV antibiotics, with possibly changing Zyvox IV daptomycin given the fact that patient had been refusin g vancomycin trough drawing. Dictated By: HARJINDER MAKI FORMWORK CARPENTER for MARIUM VALENZUELA/KATY Conf#: [id number] DID#: [id number]
[2016-03-27] MEDS: SOD CHLORIDE 0.9% 1,000 ML IV SCH ×3 (06:00→21:05)
[2016-03-27] MEDS: ZYVOX 600 MG TAB PO SCH ×2 (09:00→21:05)
[2016-03-27] MEDS: CEFEPIME 1GM/50 ML (PMX) 50 ML IVPB SCH ×2 (09:57→21:05)
--- NOTE | 2016-03-27 13:40 | PN ---
Date/Time of Note Date/Time of Note DATE: 03/27/16 TIME: 13:39 Assessment/Plan VTE Prophylaxis VTE Prophylaxis Intervention: SCD's Lines/Catheters IV Catheter Type (from Nrsg): Peripheral IV Urinary Cath still in place: Yes Reason Cath still needed: skin wounds contaminated by urine Assessment/Plan Assessment/Plan 1. Sepsis as evidenced by leukocytosis and fever, secondary to severe urinary tract infection, decubitus ulcer, as well as left lower extremity ulcer. 2. Severe urinary tract infection. 3. History of spina bifida with below waist paralysis and wheelchair bound. 4. Microcytic anemia, evaluate for iron deficiency in 5. Chronic osteomyelitis at the sacrococcygeal junction. 6. Neurogenic bladder with indwelling Miranda. Plan: ID following, BP stable pt refused AM labs, MRI has been ordered - but he refused X ray showed OM to evaluate for I & D Counselled multiple times for Compliance SCD for DVT prophylaxis Subjective 24 Hr Interval Summary Free Text/Dictation pt refusing AM labs, today he agreed for IV abx Exam/Review of Systems Vital Signs Vitals Vital Signs Date Time Temp Pulse Resp B/P Pulse Ox O2 Delivery O2 Flow Rate FiO2 03/26/16 20:50 98.9 104 16 112/69 93 03/26/16 15:40 Room Air Intake and Output 03/26/16 03/26/16 03/27/16 15:00 23:00 07:00 Intake Total 700 ml 1300 ml Output Total 350 ml 1000 ml Balance 350 ml 300 ml Exam GENERAL: The patient lying in bed with sign of discomfort from pain. HEENT: Normocephalic, atraumatic. Extraocular muscles intact. CARDIOVASCULAR: Regular rate and rhythm with no extra sounds. LUNGS: Clear. ABDOMEN: Soft. There is tenderness in the epigastric area with no guarding, no rigidity, no rebound tenderness. There are positive bowel sounds. EXTREMITIES: The patient is paralyzed from the waist down and unable to move his bilateral lower extremities. There is an ulcer on bilateral lower extremity with erythema. BACK: There is a stage III decubitus ulcer with erythema, and the area is also tender. Results Result Diagram: 03/25/16 1630 03/25/16 1630 Medications Medications Current Medications Sodium Chloride (NS) 1,000 ml @ 100 mls/hr Q10H IV Last administered on 09:05; Admin Dose 100 MLS/HR; Start 03/23/16 at 02:00 Acetaminophen (Tylenol Tab) 650 mg Q4H PRN PO PAIN AND OR ELEVATED TEMP; Start 03/23/16 at 02:00 Morphine Sulfate 3 mg 3 mg Q4H PRN IV PAIN; Start 03/23/16 at 02:00; Status Future Hold Cefepime HCl (Maxipime 1gm/50 ml (Pmx)) 50 ml @ 100 mls/hr Q12 IVPB Last administered on 03/27/16 09:57; Admin Dose 100 MLS/HR; Start 03/23/16 at 09:00 Linezolid (Zyvox) 600 mg BID PO Last administered on 03/26/16 20:55; Admin Dose 600 MG; Start 03/25/16 at 21:00 LISSET WISE MD Mar 27, 2016 13:40
[2016-03-27] MEDS ORDERED: HYDROCODONE/APAP (5/325) TAB PO PRN (16:00)
--- NOTE | 2016-03-27 16:54 | CONS ---
Date/Time of Note Date/Time of Note DATE: 03/27/16 TIME: 16:53 Assessment/Plan Assessment/Plan Chief Complaint/Hosp Course SUBJECTIVE: No acute changes. The patient is alert, looks comfortable. Denies pain. No fevers. ANTIMICROBIALS: 1. Cefepime. 2. Zyvox. DIAGNOSTICS: X-ray of the sacrum revealed evidence for osteomyelitis. No laboratories today. PHYSICAL EXAMINATION: GENERAL: Ill-appearing young man who is lying comfortably in bed. HEENT: Head atraumatic, normocephalic. Sclerae anicteric. Buccal mucosa pink. NECK: Supple. CHEST: Rise symmetrical. Breath sounds clear. HEART: S1, S2. ABDOMEN: Soft, bowel tones present. EXTREMITIES: With lower extremities wasting. ASSESSMENT: 1. Sacral decubitus with osteomyelitis. 2. Medical noncompliance. 3. History of spina bifida. 4. Paraplegia. 5. Bacteriuria with urine culture growing multidrug resistant Morganella morganii, but only 10,000 colonies likely colonized PLAN: Await for wound cultures. Continue local wound care. Anticipate treating with long-term IV antibiotics, with possibly changing Zyvox IV daptomycin given the fact that patient had been refusing vancomycin trough drawing. DW staff Problems: Consultation Date/Type/Reason Admit Date/Time Mar 22, 2016 at 22:01 Type of Consultation: id Referring Provider: LISSET WISE MD Exam/Review of Systems Vital Signs Vitals Vital Signs Date Time Temp Pulse Resp B/P Pulse Ox O2 Delivery O2 Flow Rate FiO2 03/26/16 20:50 98.9 104 16 112/69 93 03/26/16 15:40 Room Air Intake and Output 03/26/16 03/26/16 03/27/16 15:00 23:00 07:00 Intake Total 700 ml 1300 ml Output Total 350 ml 1000 ml Balance 350 ml 300 ml Results Result Diagram: 03/25/16 1630 03/25/16 1630 Medications Medications Current Medications Sodium Chloride (NS) 1,000 ml @ 100 mls/hr Q10H IV Last administered on t 09:05; Admin Dose 100 MLS/HR; Start 03/23/16 at 02:00 Acetaminophen 650 mg 650 mg Q4H PRN PO PAIN AND OR ELEVATED TEMP; Start at 02:00 Cefepime HCl (Maxipime 1gm/50 ml (Pmx)) 50 ml @ 100 mls/hr Q12 IVPB Last administered on 03/27/16 09:57; Admin Dose 100 MLS/HR; Start 03/23/16 at 09:00 Linezolid (Zyvox) 600 mg BID PO Last administered on 03/26/16 20:55; Admin Dose 600 MG; Start 03/25/16 at 21:00 Acetaminophen/ Hydrocodone Bitart ([place] (5/325)) 1 tab Q4H PRN PO PAIN; Start 03/27/16 at 16:00 HARJINDER MAKI NP Mar 27, 2016 16:54
[2016-03-27] MEDS ORDERED: morphine 4 MG/ML VIAL IV PRN (18:00)
[2016-03-27 20:17] VITALS: BP 129/70; RESP 19
[2016-03-28] MEDS ORDERED: traMADol 50 MG TAB PO PRN (01:30)
[2016-03-28] MEDS: SOD CHLORIDE 0.9% 1,000 ML IV SCH ×2 (07:05→17:13)
[2016-03-28 08:37] VITALS: BP 107/64; RESP 16
[2016-03-28] MEDS: CEFEPIME 1GM/50 ML (PMX) 50 ML IVPB SCH ×2 (08:46→20:49)
[2016-03-28] MEDS: ZYVOX 600 MG TAB PO SCH ×2 (08:46→20:49)
--- NOTE | 2016-03-28 12:50 | CONS ---
Date/Time of Note Date/Time of Note DATE: 03/28/16 TIME: 12:49 Assessment/Plan Assessment/Plan Chief Complaint/Hosp Course SUBJECTIVE: No acute changes. The patient is alert, looks comfortable. Denies pain. No fevers. ANTIMICROBIALS: 1. Cefepime. 2. Zyvox. DIAGNOSTICS: X-ray of the sacrum revealed evidence for osteomyelitis. No laboratories today. PHYSICAL EXAMINATION: GENERAL: Ill-appearing young man who is lying comfortably in bed. HEENT: Head atraumatic, normocephalic. Sclerae anicteric. Buccal mucosa pink. NECK: Supple. CHEST: Rise symmetrical. Breath sounds clear. HEART: S1, S2. ABDOMEN: Soft, bowel tones present. EXTREMITIES: With lower extremities wasting. ASSESSMENT: 1. Sacral decubitus with osteomyelitis. 2. Medical noncompliance. 3. History of spina bifida. 4. Paraplegia. 5. Bacteriuria with urine culture growing multidrug resistant Morganella morganii, but only 10,000 colonies likely colonized PLAN: Remains unchanged. Continue local wound care. Anticipate treating with long-term IV antibiotics, with possibly changing Zyvox IV daptomycin given the fact that patient had been refusing vancomycin trough drawing. DW staff Problems: Consultation Date/Type/Reason Admit Date/Time Mar 22, 2016 at 22:01 Type of Consultation: id Referring Provider: LISSET WISE MD Exam/Review of Systems Vital Signs Vitals Vital Signs Date Time Temp Pulse Resp B/P Pulse Ox O2 Delivery O2 Flow Rate FiO2 03/28/16 08:37 98.2 89 16 107/64 90 03/26/16 15:40 Room Air Intake and Output 03/27/16 03/27/16 03/28/16 15:00 23:00 07:00 Intake Total 400 ml 1820 ml 1650 ml Output Total 800 ml 1100 ml Balance 400 ml 1020 ml 550 ml Results Result Diagram: 03/25/16 1630 03/25/16 1630 Medications Medications Current Medications Sodium Chloride (NS) 1,000 ml @ 100 mls/hr Q10H IV Last administered on t 07:05; Admin Dose 100 MLS/HR; Start 03/23/16 at 02:00 Acetaminophen 650 mg 650 mg Q4H PRN PO PAIN AND OR ELEVATED TEMP; Start at 02:00 Cefepime HCl (Maxipime 1gm/50 ml (Pmx)) 50 ml @ 100 mls/hr Q12 IVPB Last administered on 03/28/16 08:46; Admin Dose 100 MLS/HR; Start 03/23/16 at 09:00 Linezolid (Zyvox) 600 mg BID PO Last administered on 03/28/16 08:46; Admin Dose 600 MG; Start 03/25/16 at 21:00 Acetaminophen/ Hydrocodone Bitart ([place] (5/325)) 1 tab Q4H PRN PO PAIN; Start 03/27/16 at 16:00 Tramadol HCl (Ultram) 50 mg Q6H PRN PO PAIN LEVEL 6-10 Last administered on 01:53; Admin Dose 50 MG; Start 03/28/16 at 01:30 HARJINDER MAKI NP Mar 28, 2016 12:50
--- NOTE | 2016-03-28 13:55 | PN ---
Date/Time of Note Date/Time of Note DATE: 03/28/16 TIME: 13:53 Assessment/Plan VTE Prophylaxis VTE Prophylaxis Intervention: SCD's Lines/Catheters IV Catheter Type (from Nrs): Peripheral IV Urinary Cath still in place: Yes Reason Cath still needed: skin wounds contaminated by urine Assessment/Plan Assessment/Plan 1. Sepsis as evidenced by leukocytosis and fever, secondary to severe urinary tract infection, decubitus ulcer, as well as left lower extremity ulcer. 2. Severe urinary tract infection. 3. History of spina bifida with below waist paralysis and wheelchair bound. 4. Microcytic anemia, evaluate for iron deficiency in 5. Chronic osteomyelitis at the sacrococcygeal junction. 6. Neurogenic bladder with indwelling Miranda. Plan: ID following, BP stable pt refused AM labs, MRI has been ordered - but he refused X ray showed OM Counselled multiple times for Compliance SCD for DVT prophylaxis Subjective 24 Hr Interval Summary Free Text/Dictation BP stable, afebrile, asking for dilaudid Exam/Review of Systems Vital Signs Vitals Vital Signs Date Time Temp Pulse Resp B/P Pulse Ox O2 Delivery O2 Flow Rate FiO2 03/28/16 08:37 98.2 89 16 107/64 90 03/26/16 15:40 Room Air Intake and Output 03/27/16 03/27/16 03/28/16 15:00 23:00 07:00 Intake Total 400 ml 1820 ml 1650 ml Output Total 800 ml 1100 ml Balance 400 ml 1020 ml 550 ml Exam GENERAL: The patient lying in bed with sign of discomfort from pain. HEENT: Normocephalic, atraumatic. Extraocular muscles intact. CARDIOVASCULAR: Regular rate and rhythm with no extra sounds. LUNGS: Clear. ABDOMEN: Soft. There is tenderness in the epigastric area with no guarding, no rigidity, no rebound tenderness. There are positive bowel sounds. EXTREMITIES: The patient is paralyzed from the waist down and unable to move his bilateral lower extremities. There is an ulcer on bilateral lower extremity with erythema. BACK: There is a stage III decubitus ulcer with erythema, and the area is also tender. Results Result Diagram: 03/25/16 1630 03/25/16 1630 Medications Medications Current Medications Sodium Chloride (NS) 1,000 ml @ 100 mls/hr Q10H IV Last administered on t 07:05; Admin Dose 100 MLS/HR; Start 03/23/16 at 02:00 Acetaminophen 650 mg 650 mg Q4H PRN PO PAIN AND OR ELEVATED TEMP; Start at 02:00 Cefepime HCl (Maxipime 1gm/50 ml (Pmx)) 50 ml @ 100 mls/hr Q12 IVPB Last administered on 03/28/16 08:46; Admin Dose 100 MLS/HR; Start 03/23/16 at 09:00 Linezolid (Zyvox) 600 mg BID PO Last administered on 03/28/16 08:46; Admin Dose 600 MG; Start 03/25/16 at 21:00 Acetaminophen/ Hydrocodone Bitart ([place] (5/325)) 1 tab Q4H PRN PO PAIN; Start 03/27/16 at 16:00 Tramadol HCl (Ultram) 50 mg Q6H PRN PO PAIN LEVEL 6-10 Last administered on 01:53; Admin Dose 50 MG; Start 03/28/16 at 01:30 LISSET WISE MD Mar 28, 2016 13:55
[2016-03-28 20:21] VITALS: BP 111/68; RESP 18
[2016-03-29] MEDS: SOD CHLORIDE 0.9% 1,000 ML IV SCH ×3 (06:26→17:07)
[2016-03-29 07:30] VITALS: BP 103/62; RESP 16
[2016-03-29] MEDS: ZYVOX 600 MG TAB PO SCH ×2 (08:10→22:05)
[2016-03-29] MEDS: CEFEPIME 1GM/50 ML (PMX) 50 ML IVPB SCH ×2 (08:10→22:06)
--- NOTE | 2016-03-29 14:46 | PN ---
Date/Time of Note Date/Time of Note DATE: 03/29/16 TIME: 14:45 Assessment/Plan VTE Prophylaxis VTE Prophylaxis Intervention: SCD's Lines/Catheters IV Catheter Type (from Nrsg): Peripheral IV Urinary Cath still in place: Yes Reason Cath still needed: skin wounds contaminated by urine, other (indicate) Assessment/Plan Assessment/Plan 1. Sepsis as evidenced by leukocytosis and fever, secondary to severe urinary tract infection, decubitus ulcer, as well as left lower extremity ulcer. 2. Severe urinary tract infection. 3. History of spina bifida with below waist paralysis and wheelchair bound. 4. Microcytic anemia, evaluate for iron deficiency in 5. Chronic osteomyelitis at the sacrococcygeal junction. 6. Neurogenic bladder with indwelling Miranda. Plan: ID following, BP stable pt refused AM labs, MRI has been ordered - but he refused X ray showed OM Counselled multiple times for Compliance SCD for DVT prophylaxis Subjective 24 Hr Interval Summary Free Text/Dictation c/o pain in buttock, askign for dilaudid Exam/Review of Systems Vital Signs Vitals Vital Signs Date Time Temp Pulse Resp B/P Pulse Ox O2 Delivery O2 Flow Rate FiO2 03/29/16 07:30 98.4 81 16 103/62 92 03/26/16 15:40 Room Air Intake and Output 03/28/16 03/28/16 03/29/16 15:00 23:00 07:00 Intake Total 2050 ml 2000 ml Output Total 1200 ml 900 ml Balance 850 ml 1100 ml Exam GENERAL: The patient lying in bed with sign of discomfort from pain. HEENT: Normocephalic, atraumatic. Extraocular muscles intact. CARDIOVASCULAR: Regular rate and rhythm with no extra sounds. LUNGS: Clear. ABDOMEN: Soft. There is tenderness in the epigastric area with no guarding, no rigidity, no rebound tenderness. There are positive bowel sounds. EXTREMITIES: The patient is paralyzed from the waist down and unable to move his bilateral lower extremities. There is an ulcer on bilateral lower extremity with erythema. BACK: There is a stage III decubitus ulcer with erythema, and the area is also tender. Results Result Diagram: 03/25/16 1630 03/25/16 1630 Medications Medications Current Medications Sodium Chloride (NS) 1,000 ml @ 100 mls/hr Q10H IV Last administered on t 06:26; Admin Dose 100 MLS/HR; Start 03/23/16 at 02:00 Acetaminophen 650 mg 650 mg Q4H PRN PO PAIN AND OR ELEVATED TEMP; Start at 02:00 Cefepime HCl (Maxipime 1gm/50 ml (Pmx)) 50 ml @ 100 mls/hr Q12 IVPB Last administered on 03/29/16 08:10; Admin Dose 100 MLS/HR; Start 03/23/16 at 09:00 Linezolid (Zyvox) 600 mg BID PO Last administered on 03/28/16 20:49; Admin Dose 600 MG; Start 03/25/16 at 21:00 Acetaminophen/ Hydrocodone Bitart ([place] (5/325)) 1 tab Q4H PRN PO PAIN; Start 03/27/16 at 16:00 Tramadol HCl (Ultram) 50 mg Q6H PRN PO PAIN LEVEL 6-10 Last administered on 01:53; Admin Dose 50 MG; Start 03/28/16 at 01:30 LISSET WISE MD Mar 29, 2016 14:46
--- NOTE | 2016-03-29 19:34 | CONS ---
Date/Time of Note Date/Time of Note DATE: 03/29/16 TIME: 19:33 Assessment/Plan Assessment/Plan Chief Complaint/Hosp Course ID PROGRESS NOTE TOTAL ABX DAY # Zyvox + Ceftriaxone 24H INTERVAL SUMMARY * Resting comfortably, no fevers, chart reviewed PHYSICAL EXAMINATION: GENERAL: VSS, NAD HEENT: Unremarkable NECK: Trach midline CHEST: Rise symmetrical - without dyspnea on observation HEART: RRR ABDOMEN: Soft, EXTREMITIES: Warm, ID ASSESSMENT: 25 yo M w/PMHx Spina Bifida w/paraplegia admit with: 1. Sacral decubitus with osteomyelitis. 2. Medical noncompliance. 5. Bacteriuria with urine culture growing multidrug resistant Morganella morganii, but only 10,000 colonies likely colonized INVASIVES: *PIV ABX ALLERGIES: KNDA CURRENT ABX: Vanco IV + Ceftriaxone ID RECOMMENDATIONS: Continue ABX Continue local wound care. Anticipate treating with long-term IV antibiotics, with possibly changing Zyvox IV daptomycin given the fact that patient had been refusing vancomycin trough drawing. . Problems: Consultation Date/Type/Reason Admit Date/Time Mar 22, 2016 at 22:01 Initial Consult Date Type of Consultation: id Referring Provider: LISSET WISE MD Exam/Review of Systems Vital Signs Vitals Vital Signs Date Time Temp Pulse Resp B/P Pulse Ox O2 Delivery O2 Flow Rate FiO2 03/29/16 07:30 98.4 81 16 103/62 92 03/26/16 15:40 Room Air Intake and Output 03/28/16 03/28/16 03/29/16 15:00 23:00 07:00 Intake Total 2050 ml 2000 ml Output Total 1200 ml 900 ml Balance 850 ml 1100 ml Results Result Diagram: 03/25/16 1630 03/25/16 1630 Medications Medications Current Medications Sodium Chloride (NS) 1,000 ml @ 100 mls/hr Q10H IV Last administered on t 17:07; Admin Dose 100 MLS/HR; Start 03/23/16 at 02:00 Acetaminophen 650 mg 650 mg Q4H PRN PO PAIN AND OR ELEVATED TEMP; Start at 02:00 Cefepime HCl (Maxipime 1gm/50 ml (Pmx)) 50 ml @ 100 mls/hr Q12 IVPB Last administered on 03/29/16 08:10; Admin Dose 100 MLS/HR; Start 03/23/16 at 09:00 Linezolid (Zyvox) 600 mg BID PO Last administered on 03/28/16 20:49; Admin Dose 600 MG; Start 03/25/16 at 21:00 Acetaminophen/ Hydrocodone Bitart ([place] (5/325)) 1 tab Q4H PRN PO PAIN; Start 03/27/16 at 16:00 Tramadol HCl (Ultram) 50 mg Q6H PRN PO PAIN LEVEL 6-10 Last administered on 01:53; Admin Dose 50 MG; Start 03/28/16 at 01:30 PUMA GONZÁLES NP Mar 29, 2016 19:34
[2016-03-29 21:08] VITALS: BP 110/67; RESP 18
[2016-03-30] MEDS: SOD CHLORIDE 0.9% 1,000 ML IV SCH ×2 (03:39→13:44)
[2016-03-30] MEDS: ZYVOX 600 MG TAB PO SCH ×2 (09:00→22:04)
[2016-03-30] MEDS: CEFEPIME 1GM/50 ML (PMX) 50 ML IVPB SCH ×2 (09:51→20:42)
--- NOTE | 2016-03-30 12:34 | PN ---
Date/Time of Note Date/Time of Note DATE: 03/30/16 TIME: 12:33 Assessment/Plan VTE Prophylaxis VTE Prophylaxis Intervention: SCD's Lines/Catheters IV Catheter Type (from Nrs): Peripheral IV Urinary Cath still in place: Yes Reason Cath still needed: skin wounds contaminated by urine Assessment/Plan Assessment/Plan 1. Sepsis as evidenced by leukocytosis and fever, secondary to severe urinary tract infection, decubitus ulcer, as well as left lower extremity ulcer. 2. Severe urinary tract infection. 3. History of spina bifida with below waist paralysis and wheelchair bound. 4. Microcytic anemia, evaluate for iron deficiency in 5. Chronic osteomyelitis at the sacrococcygeal junction. 6. Neurogenic bladder with indwelling Miranda. Plan: ID following, BP stable pt refused AM labs, MRI has been ordered - but he refused X ray showed OM Counselled multiple times for Compliance SCD for DVT prophylaxis Subjective 24 Hr Interval Summary Free Text/Dictation pt has been refusing AM labs and medicatiosn some times, asking for IV dialudid Exam/Review of Systems Vital Signs Vitals Vital Signs Date Time Temp Pulse Resp B/P Pulse Ox O2 Delivery O2 Flow Rate FiO2 03/29/16 21:08 98.8 96 18 110/67 95 03/26/16 15:40 Room Air Intake and Output 03/29/16 03/29/16 03/30/16 15:00 23:00 07:00 Intake Total 50 ml 2300 ml 1560 ml Output Total 800 ml 1600 ml Balance 50 ml 1500 ml -40 ml Exam GENERAL: The patient lying in bed with sign of discomfort from pain. HEENT: Normocephalic, atraumatic. Extraocular muscles intact. CARDIOVASCULAR: Regular rate and rhythm with no extra sounds. LUNGS: Clear. ABDOMEN: Soft. There is tenderness in the epigastric area with no guarding, no rigidity, no rebound tenderness. There are positive bowel sounds. EXTREMITIES: The patient is paralyzed from the waist down and unable to move his bilateral lower extremities. There is an ulcer on bilateral lower extremity with erythema. BACK: There is a stage III decubitus ulcer with erythema, and the area is also tender. Medications Medications Current Medications Sodium Chloride (NS) 1,000 ml @ 100 mls/hr Q10H IV Last administered on t 03:39; Admin Dose 100 MLS/HR; Start 03/23/16 at 02:00 Acetaminophen 650 mg 650 mg Q4H PRN PO PAIN AND OR ELEVATED TEMP; Start at 02:00 Cefepime HCl (Maxipime 1gm/50 ml (Pmx)) 50 ml @ 100 mls/hr Q12 IVPB Last administered on 03/30/16 09:51; Admin Dose 100 MLS/HR; Start 03/23/16 at 09:00 Linezolid (Zyvox) 600 mg BID PO Last administered on 03/29/16 22:05; Admin Dose 600 MG; Start 03/25/16 at 21:00 Acetaminophen/ Hydrocodone Bitart ([place] (5/325)) 1 tab Q4H PRN PO PAIN; Start 03/27/16 at 16:00 Tramadol HCl (Ultram) 50 mg Q6H PRN PO PAIN LEVEL 6-10 Last administered on 01:53; Admin Dose 50 MG; Start 03/28/16 at 01:30 LISSET WISE MD Mar 30, 2016 12:34
[2016-03-31] MEDS: SOD CHLORIDE 0.9% 1,000 ML IV SCH ×4 (00:16→23:33)
--- NOTE | 2016-03-31 05:17 | CONS ---
Date/Time of Note Date/Time of Note DATE: 03/26/16 TIME: 14:44 Assessment/Plan Assessment/Plan Chief Complaint/Hosp Course 1. Sacrococcygeal decubitus ulcers -offload -nutrition optimization -vit c -local care -debridement prn 2. Sacrococcygeal osteomyelitis -abx per id -encourage compliance -consider HBO as outpt 3. BMI 35 -encourage nutrition optimization -encourage upper body exercise 4. Recurrent UTI -abx -optimize hygiene 5. Thrombocytosis 2nd inflammatory process -as above 6. Paraplegia and Spina Bifida -off loading -nutritional optimization -medical optimization -weight loss 7. Anemia -monitor 8. Leukocytosis improved Thank you very much for consulting me in this patient's care, Late entry 03/26 Problems: Consultation Date/Type/Reason Admit Date/Time Mar 22, 2016 at 22:01 Date of Consultation: Mar 26, 2016 Type of Consultation: Gen Surgical Reason for Consultation Decubitus ulcers BMI 35 Osteomyelitis Referring Provider: LISSET WISE MD Hx of Present Illness Celeste oCnroy is a 25-year-old male with multiple comorbidities who presented to the ER with diffuse epigastric pain, onset 1 hour prior to admission which radiated to his entire abdomen. He had nausea and vomiting of nonbilious fluid, at least 8 times. He also had noted that he had some constipation, but had a bowel movement on the morning of admission. On admission he had wbc of 17k with +UA. CT identified osteomyelitis of sacrococcygeal bone. Patient is admitted and placed on iv abx. Surgical consult is obtained for further evaluation and treatment. Patient has been non compliant with some of the care at the hospital. His pain, nausea, and vomiting have improved. There is no f/c. No cp/sob. No cough. No drew/dizzy/ visual or neuro changes. No dysuria. No bloating. Bowel function. 12 point ros negative unless addressed in hpi Past Medical History Spina bifida Paraplegia Neurogenic bladde Urinary tract infections Decubitus ulcers Osteomyelitis Obesity, bmi 35 Anemia Leukocytosis Possible sepsis Thrombocytosis Past Surgical History Lower back and LE surgeries Decubitus debridements Family History Significant Family History: no pertinent family hx Social History Alcohol Use: none Smoking Status: Current some day smoker Drug Use: none Exam/Review of Systems Vital Signs Vitals Vital Signs Date Time Temp Pulse Resp B/P Pulse Ox O2 Delivery O2 Flow Rate FiO2 03/29/16 21:08 98.8 96 18 110/67 95 Intake and Output 03/30/16 03/30/16 03/31/16 14:59 22:59 06:59 Intake Total 850 ml 1090 ml 1000 ml Output Total 1400 ml Balance 850 ml -310 ml 1000 ml Exam Constitutional: alert, obese, oriented, No distress Psych: No confusion, No nl mood/affect Head: atraumatic, normocephalic Eyes: EOMI, PERRL, nl conjunctiva, No icteric ENMT: mucosa pink and moist, nl external ears & nose Neck: non-tender, supple, No jvd Respiratory: normal air movement, No congested cough, No labored breathing Cardiovascular: regular rate and rhythm, No edema Gastrointestinal: non-tender, soft, No distended, No rebound or guarding Musculoskeletal: muscle weakness, No joint tenderness, No nl extremities to inspection, No nl gait and stance Extremities: No calf tenderness Neurological: nl mental status, nl speech, No nl strength (LE) Skin: rash or lesions (Decubitus ulcers), No diaphoresis Lymph: nontender Medications Medications Current Medications Sodium Chloride (NS) 1,000 ml @ 100 mls/hr Q10H IV Last administered on 00:16; Admin Dose 100 MLS/HR; Start 03/23/16 at 02:00 Acetaminophen 650 mg 650 mg Q4H PRN PO PAIN AND OR ELEVATED TEMP; Start at 02:00 Cefepime HCl (Maxipime 1gm/50 ml (Pmx)) 50 ml @ 100 mls/hr Q12 IVPB Last administered on 03/30/16 20:42; Admin Dose 100 MLS/HR; Start 03/23/16 at 09:00 Linezolid (Zyvox) 600 mg BID PO Last administered on 03/30/16 22:04; Admin Dose 600 MG; Start 03/25/16 at 21:00 Acetaminophen/ Hydrocodone Bitart ([place] (5/325)) 1 tab Q4H PRN PO PAIN; Start 03/27/16 at 16:00 Tramadol HCl (Ultram) 50 mg Q6H PRN PO PAIN LEVEL 6-10 Last administered on 01:53; Admin Dose 50 MG; Start 03/28/16 at 01:30 ELIEZER HERNANDEZ MD Mar 31, 2016 04:54
--- NOTE | 2016-03-31 05:30 | QN ---
Documentation Comment DATE: DATE: 03/27/16 TIME: 14:44 ASSESSMENT/PLAN: 1. Sacrococcygeal decubitus ulcers -offload -nutrition optimization -vit c -local care -debridement prn 2. Sacrococcygeal osteomyelitis -abx per id -encourage compliance -consider HBO as outpt 3. BMI 35 -encourage nutrition optimization -encourage upper body exercise 4. Recurrent UTI -abx -optimize hygiene 5. Thrombocytosis 2nd inflammatory process -as above 6. Paraplegia and Spina Bifida -off loading -nutritional optimization -medical optimization -weight loss 7. Anemia -monitor 8. Leukocytosis improved Thank you, SUBJECTIVE: Celeste Conroy is a 25-year-old male with multiple comorbidities who presented to the ER with diffuse epigastric pain, onset 1 hour prior to admission which radiated to his entire abdomen. He had nausea and vomiting of nonbilious fluid, at least 8 times. He also had noted that he had some constipation, but had a bowel movement on the morning of admission. On admission he had wbc of 17k with +UA. CT identified osteomyelitis of sacrococcygeal bone. Patient is admitted and placed on iv abx. Surgical consult is obtained for further evaluation and treatment. Patient has been non compliant with some of the care at the hospital. His pain, nausea, and vomiting have improved. There is no f/c. No cp/sob. No cough. No drew/dizzy/ visual or neuro changes. No dysuria. No bloating. Bowel function. OBJECTIVE: Vitals: Noted Constitutional: alert, obese, oriented, No distress Psych: No confusion, No nl mood/affect Head: atraumatic, normocephalic Eyes: EOMI, PERRL, nl conjunctiva, No icteric ENMT: mucosa pink and moist, nl external ears & nose Neck: non-tender, supple, No jvd Respiratory: normal air movement, No congested cough, No labored breathing Cardiovascular: regular rate and rhythm, No edema Gastrointestinal: non-tender, soft, No distended, No rebound or guarding Musculoskeletal: muscle weakness, No joint tenderness, No nl extremities to inspection, No nl gait and stance Extremities: No calf tenderness Neurological: nl mental status, nl speech, No nl strength (LE) Skin: rash or lesions (Decubitus ulcers), No diaphoresis Lymph: nontender LABORATORY Noted ELIEZER HERNANDEZ MD Mar 31, 2016 05:30
--- NOTE | 2016-03-31 05:37 | PN ---
Date/Time of Note Date/Time of Note DATE: 03/31/16 TIME: 05:32 Assessment/Plan Lines/Catheters IV Catheter Type (from [facility]): Peripheral IV Miranda in Place (from [facility]): Yes Assessment/Plan Chief Complaint/Hosp Course 1. Sacrococcygeal decubitus ulcers -offload -nutrition optimization -vit c -local care -debridement prn 2. Sacrococcygeal osteomyelitis -abx per id -encourage compliance -consider HBO as outpt 3. BMI 35 -encourage nutrition optimization -encourage upper body exercise 4. Recurrent UTI -abx -optimize hygiene 5. Thrombocytosis 2nd inflammatory process -as above 6. Paraplegia and Spina Bifida -off loading -nutritional optimization -medical optimization -weight loss 7. Anemia -monitor 8. Leukocytosis improved Thank you very much for consulting me in this patient's care, Late entry 03/30 Problems: Subjective 24 Hr Interval Summary No f/c. No cp/sob. No cough. No drew/dizzy/visual or neuro changes. No dysuria. No bloating. Bowel function. Leukocytosis improved. Exam/Review of Systems Vital Signs Vitals Vital Signs Date Time Temp Pulse Resp B/P Pulse Ox O2 Delivery O2 Flow Rate FiO2 03/29/16 21:08 98.8 96 18 110/67 95 Intake and Output 03/30/16 03/30/16 03/31/16 14:59 22:59 06:59 Intake Total 850 ml 1090 ml 1000 ml Output Total 1400 ml Balance 850 ml -310 ml 1000 ml Exam Free Text/Dictation Constitutional: alert, obese, oriented, No distress Psych: No confusion, No nl mood/affect Head: atraumatic, normocephalic Eyes: EOMI, PERRL, nl conjunctiva, No icteric ENMT: mucosa pink and moist, nl external ears & nose Neck: non-tender, supple, No jvd Respiratory: normal air movement, No congested cough, No labored breathing Cardiovascular: regular rate and rhythm, No edema Gastrointestinal: non-tender, soft, No distended, No rebound or guarding Musculoskeletal: muscle weakness, No joint tenderness, No nl extremities to inspection, No nl gait and stance Extremities: No calf tenderness Neurological: nl mental status, nl speech, No nl strength (LE) Skin: rash or lesions (Decubitus ulcers), No diaphoresis Lymph: nontender MARY,ELIEZER MD Mar 31, 2016 05:37
[2016-03-31 06:08] LABS: INR 1.05; PROTIME 13.7 Sec (12.2-14.2); PT RATIO 1.1
[2016-03-31 06:09] LABS: PARTIAL THROMBOPLASTIN TIME 31.4 Sec (25.0-35.0)
[2016-03-31 06:14] LABS: BASOPHIL # 0.1 10^3/ul (0.0-0.1); BASOPHILS % 0.6 % (0.0-2.0); EOSINOPHILS # 0.6 10^3/ul (0.0-0.5); EOSINOPHILS % 5.8 % (0.0-7.0); HEMATOCRIT 36.8 % (42.0-52.0); HEMOGLOBIN 11.8 g/dl (14.0-18.0); LYMPHOCYTES # 3.1 10^3/ul (0.8-2.9); LYMPHOCYTES % 30.5 % (15.0-51.0); MEAN CORPUSCULAR HEMOGLOBIN 24.1 pg (29.0-33.0); MEAN CORPUSCULAR HGB CONC 32.1 g/dl (32.0-37.0); MEAN PLATELET VOLUME 8.6 fl (7.4-10.4); MONOCYTE # 0.6 10^3/ul (0.3-0.9); MONOCYTES % 5.4 % (0.0-11.0); NEUTROPHIL # 5.9 10^3/ul (1.6-7.5); NEUTROPHILS % 57.7 % (39.0-77.0); PLATELET COUNT 525 10^3/UL (140-440); RED CELL DISTRIBUTION WIDTH 20.4 % (11.5-14.5); UNCORRECTED WBC 10.3 10^3/ul (4.8-10.8); WHITE BLOOD COUNT 10.3 10^3/ul (4.8-10.8)
[2016-03-31 06:23] LABS: CONDITION 1; LH ANALYZER COMMENTS 1
[2016-03-31 06:24] LABS: POTASSIUM 4.4 mmol/L (3.5-5.1)
[2016-03-31 06:26] LABS: CREATININE 0.74 mg/dl (0.61-1.24)
[2016-03-31 06:27] LABS: CALCIUM 9.1 mg/dl (8.4-10.2)
[2016-03-31] MEDS: ZYVOX 600 MG TAB PO SCH ×2 (09:23→20:32)
[2016-03-31] MEDS: CEFEPIME 1GM/50 ML (PMX) 50 ML IVPB SCH (09:23)
[2016-03-31 09:52] VITALS: BP 118/75; RESP 18
[2016-03-31] MEDS ORDERED: LINE600T6 PO (11:33)
[2016-03-31] MEDS ORDERED: LEVO500T10 PO (11:33)
--- NOTE | 2016-03-31 12:16 | CONS ---
Date/Time of Note Date/Time of Note DATE: 03/31/16 TIME: 12:14 Assessment/Plan Assessment/Plan Chief Complaint/Hosp Course SUBJECTIVE: No acute changes. The patient looks comfortable. Denies pain. No fevers. ANTIMICROBIALS: 1. Cefepime. 2. Zyvox. DIAGNOSTICS: X-ray of the sacrum revealed evidence for osteomyelitis. No laboratories today. PHYSICAL EXAMINATION: GENERAL: Ill-appearing young man who is lying comfortably in bed. HEENT: Head atraumatic, normocephalic. Sclerae anicteric. Buccal mucosa pink. NECK: Supple. CHEST: Rise symmetrical. Breath sounds clear. HEART: S1, S2. ABDOMEN: Soft, bowel tones present. EXTREMITIES: With lower extremities wasting. ASSESSMENT: 1. Sacral decubitus with osteomyelitis. 2. Medical noncompliance. 3. History of spina bifida. 4. Paraplegia. 5. Bacteriuria with urine culture growing multidrug resistant Morganella morganii, but only 10,000 colonies likely colonized PLAN: Remains unchanged. Continue local wound care. Anticipate treating with long-term IV antibiotics, with possibly changing Zyvox or IV daptomycin given the fact that patient had been refusing vancomycin trough drawing, change Cefepime to oral Levaquin, f/u surgical rec-s, probiotics. [facility] staff Problems: Consultation Date/Type/Reason Admit Date/Time Mar 22, 2016 at 22:01 Type of Consultation: ID Referring Provider: LISSET WISE MD Exam/Review of Systems Vital Signs Vitals Vital Signs Date Time Temp Pulse Resp B/P Pulse Ox O2 Delivery O2 Flow Rate FiO2 03/31/16 09:52 98.9 96 18 118/75 95 Intake and Output 03/30/16 03/30/16 03/31/16 15:00 23:00 07:00 Intake Total 850 ml 1090 ml 1600 ml Output Total 1400 ml 600 ml Balance 850 ml -310 ml 1000 ml Results Result Diagram: 03/31/1651803/31/16518 Results 24 hrs Laboratory Tests Test 03/31/16 05:19 Activated Partial Thromboplast Time 31.4 Anion Gap 20 H Basophils # 0.1 Basophils % 0.6 Blood Morphology Comment Blood Urea Nitrogen 12 Calcium Level 9.1 Carbon Dioxide Level 21 Chloride Level 109 Creatinine 0.74 Eosinophils # 0.6 H Eosinophils % 5.8 Glucose Level 84 Hematocrit 36.8 L Hemoglobin 11.8 L INR International Normalized Ratio 1.05 Lymphocytes # 3.1 H Lymphocytes % 30.5 Mean Corpuscular Hemoglobin 24.1 L Mean Corpuscular Hemoglobin Concent 32.1 Mean Corpuscular Volume 75.0 L Mean Platelet Volume 8.6 Monocytes # 0.6 Monocytes % 5.4 Neutrophils # 5.9 Neutrophils % 57.7 Nucleated Red Blood Cells # 0.0 Nucleated Red Blood Cells % 0.0 Platelet Count 525 H Potassium Level 4.4 Prothrombin Time 13.7 Prothrombin Time Ratio 1.1 Red Blood Count 4.90 Red Cell Distribution Width 20.4 H Sodium Level 146 H White Blood Count 10.3 Medications Medications Current Medications Sodium Chloride (NS) 1,000 ml @ 100 mls/hr Q10H IV Last administered on 11:16; Admin Dose 100 MLS/HR; Start 03/23/16 at 02:00 Acetaminophen 650 mg 650 mg Q4H PRN PO PAIN AND OR ELEVATED TEMP; Start at 02:00 Cefepime HCl (Maxipime 1gm/50 ml (Pmx)) 50 ml @ 100 mls/hr Q12 IVPB Last administered on 03/31/16 09:23; Admin Dose 100 MLS/HR; Start 03/23/16 at 09:00 Linezolid (Zyvox) 600 mg BID PO Last administered on 03/31/16 09:23; Admin Dose 600 MG; Start 03/25/16 at 21:00 Acetaminophen/ Hydrocodone Bitart ([place] (5/325)) 1 tab Q4H PRN PO PAIN; Start 03/27/16 at 16:00 Tramadol HCl (Ultram) 50 mg Q6H PRN PO PAIN LEVEL 6-10 Last administered on 01:53; Admin Dose 50 MG; Start 03/28/16 at 01:30 HARJINDER MAKI NP Mar 31, 2016 12:15
[2016-03-31] MEDS: LACTOBACILLUS CHEW TAB PO SCH ×2 (13:00→20:31)
--- NOTE | 2016-03-31 17:12 | PN ---
Date/Time of Note Date/Time of Note DATE: 03/31/16 TIME: 17:09 Assessment/Plan VTE Prophylaxis VTE Prophylaxis Intervention: SCD's Lines/Catheters IV Catheter Type (from Nrs): Peripheral IV Assessment/Plan Chief Complaint/Hosp Course 1. Sepsis as evidenced by leukocytosis and fever, secondary to severe urinary tract infection, decubitus ulcer, as well as left lower extremity ulcer and OM -cont Abx, awaiting approval for Zyvox PO, ID on case 2. History of spina bifida with below waist paralysis and wheelchair bound. 3. Microcytic anemia, evaluate for iron deficiency in PPx- SCD's Problems: Subjective 24 Hr Interval Summary Constitutional: no complaints Exam/Review of Systems Vital Signs Vitals Vital Signs Date Time Temp Pulse Resp B/P Pulse Ox O2 Delivery O2 Flow Rate FiO2 03/31/16 09:52 98.9 96 18 118/75 95 Intake and Output 03/30/16 03/30/16 03/31/16 15:00 23:00 07:00 Intake Total 850 ml 1090 ml 1600 ml Output Total 1400 ml 600 ml Balance 850 ml -310 ml 1000 ml Exam Constitutional: alert, oriented Respiratory: clear to auscultation Cardiovascular: regular rate and rhythm Gastrointestinal: soft, No distended Musculoskeletal: nl extremities to inspection Results Result Diagram: 03/31/1651803/31/1619 Results 24 hrs Laboratory Tests Test 03/31/16 05:19 Activated Partial Thromboplast Time 31.4 Anion Gap 20 H Basophils # 0.1 Basophils % 0.6 Blood Morphology Comment Blood Urea Nitrogen 12 Calcium Level 9.1 Carbon Dioxide Level 21 Chloride Level 109 Creatinine 0.74 Eosinophils # 0.6 H Eosinophils % 5.8 Glucose Level 84 Hematocrit 36.8 L Hemoglobin 11.8 L INR International Normalized Ratio 1.05 Lymphocytes # 3.1 H Lymphocytes % 30.5 Mean Corpuscular Hemoglobin 24.1 L Mean Corpuscular Hemoglobin Concent 32.1 Mean Corpuscular Volume 75.0 L Mean Platelet Volume 8.6 Monocytes # 0.6 Monocytes % 5.4 Neutrophils # 5.9 Neutrophils % 57.7 Nucleated Red Blood Cells # 0.0 Nucleated Red Blood Cells % 0.0 Platelet Count 525 H Potassium Level 4.4 Prothrombin Time 13.7 Prothrombin Time Ratio 1.1 Red Blood Count 4.90 Red Cell Distribution Width 20.4 H Sodium Level 146 H White Blood Count 10.3 Medications Medications Current Medications Sodium Chloride (NS) 1,000 ml @ 100 mls/hr Q10H IV Last administered on 11:16; Admin Dose 100 MLS/HR; Start 03/23/16 at 02:00 Acetaminophen (Tylenol Tab) 650 mg Q4H PRN PO PAIN AND OR ELEVATED TEMP; Start 03/23/16 at 02:00 Linezolid (Zyvox) 600 mg BID PO Last administered on 03/31/16 09:23; Admin Dose 600 MG; Start 03/25/16 at 21:00 Acetaminophen/ Hydrocodone Bitart ([place] (5/325)) 1 tab Q4H PRN PO PAIN; Start 03/27/16 at 16:00 Tramadol HCl (Ultram) 50 mg Q6H PRN PO PAIN LEVEL 6-10 Last administered on 01:53; Admin Dose 50 MG; Start 03/28/16 at 01:30 Levofloxacin (Levaquin) 500 mg DAILY@06 PO ; Start 04/01/16 at 06:00 Lactobacillus Acidoph/Bulgaricus (Floranex) 1 tab TID PO ; Start 03/31/16 at 13: 00 SUSIE GRULLON Mar 31, 2016 17:12
--- NOTE | 2016-03-31 18:40 | PN ---
Date/Time of Note Date/Time of Note DATE: 03/31/16 TIME: 18:39 Assessment/Plan Lines/Catheters IV Catheter Type (from [facility]): Peripheral IV Assessment/Plan Chief Complaint/Hosp Course 1. Sacrococcygeal decubitus ulcers -offload -nutrition optimization -vit c -local care -debridement prn 2. Sacrococcygeal osteomyelitis -abx per id -encourage compliance -consider HBO as outpt 3. BMI 35 -encourage nutrition optimization -encourage upper body exercise 4. Recurrent UTI -abx -optimize hygiene 5. Thrombocytosis 2nd inflammatory process -as above 6. Paraplegia and Spina Bifida -off loading -nutritional optimization -medical optimization -weight loss 7. Anemia -monitor 8. Leukocytosis improved Thank you very much for consulting me in this patient's care, Problems: Subjective 24 Hr Interval Summary No f/c. No cp/sob. No cough. No drew/dizzy/visual or neuro changes. No dysuria. No bloating. Bowel function. Leukocytosis resolved. Exam/Review of Systems Vital Signs Vitals Vital Signs Date Time Temp Pulse Resp B/P Pulse Ox O2 Delivery O2 Flow Rate FiO2 03/31/16 09:52 98.9 96 18 118/75 95 Intake and Output 03/30/16 03/30/16 03/31/16 15:00 23:00 07:00 Intake Total 850 ml 1090 ml 1600 ml Output Total 1400 ml 600 ml Balance 850 ml -310 ml 1000 ml Exam Free Text/Dictation Constitutional: alert, obese, oriented, No distress Psych: No confusion, No nl mood/affect Head: atraumatic, normocephalic Eyes: EOMI, PERRL, nl conjunctiva, No icteric ENMT: mucosa pink and moist, nl external ears & nose Neck: non-tender, supple, No jvd Respiratory: normal air movement, No congested cough, No labored breathing Cardiovascular: regular rate and rhythm, No edema Gastrointestinal: non-tender, soft, No distended, No rebound or guarding Musculoskeletal: muscle weakness, No joint tenderness, No nl extremities to inspection, No nl gait and stance Extremities: No calf tenderness Neurological: nl mental status, nl speech, No nl strength (LE) Skin: rash or lesions (Decubitus ulcers), No diaphoresis Lymph: nontender Results Result Diagram: 03/31/1651803/31/16518 ELIEZER HERNANDEZ MD Mar 31, 2016 18:40
[2016-03-31 20:03] VITALS: BP 118/67; RESP 18
[2016-04-01] MEDS: LEVOFLOXACIN 500 MG TAB PO SCH (05:22)
[2016-04-01] MEDS: ZYVOX 600 MG TAB PO SCH ×2 (09:00→22:24)
[2016-04-01] MEDS: LACTOBACILLUS CHEW TAB PO SCH ×3 (09:00→21:00)
--- NOTE | 2016-04-01 13:06 | CONS ---
Date/Time of Note Date/Time of Note DATE: 04/01/16 TIME: 13:05 Assessment/Plan Assessment/Plan Chief Complaint/Hosp Course SUBJECTIVE: No acute changes. The patient looks comfortable. Denies pain. No fevers. ANTIMICROBIALS: 1. Levaquin 2. Zyvox. DIAGNOSTICS: X-ray of the sacrum revealed evidence for osteomyelitis. No laboratories today. PHYSICAL EXAMINATION: GENERAL: Ill-appearing young man who is lying comfortably in bed. HEENT: Head atraumatic, normocephalic. Sclerae anicteric. Buccal mucosa pink. NECK: Supple. CHEST: Rise symmetrical. Breath sounds clear. HEART: S1, S2. ABDOMEN: Soft, bowel tones present. EXTREMITIES: With lower extremities wasting. ASSESSMENT: 1. Sacral decubitus with osteomyelitis. 2. Medical noncompliance. 3. History of spina bifida. 4. Paraplegia. 5. Bacteriuria with urine culture growing multidrug resistant Morganella morganii, but only 10,000 colonies likely colonized PLAN: Remains unchanged. Continue local wound care. Anticipate treating with long-term IV antibiotics, with possibly changing Zyvox or IV daptomycin given the fact that patient had been refusing vancomycin trough drawing, and oral Levaquin, f/u surgical rec-s, probiotics. DW staff Problems: Consultation Date/Type/Reason Admit Date/Time Mar 22, 2016 at 22:01 Type of Consultation: ID Referring Provider: LISSET WISE MD Exam/Review of Systems Vital Signs Vitals Vital Signs Date Time Temp Pulse Resp B/P Pulse Ox O2 Delivery O2 Flow Rate FiO2 03/31/16 20:03 98.5 74 18 118/67 97 Intake and Output 03/31/16 03/31/16 04/01/16 15:00 23:00 07:00 Intake Total 1050 ml 920 ml 1520 ml Output Total 2200 ml 2000 ml Balance 1050 ml -1280 ml -480 ml Results Result Diagram: 03/31/1619 03/31/16518 Medications Medications Current Medications Sodium Chloride (NS) 1,000 ml @ 100 mls/hr Q10H IV Last administered on t 23:33; Admin Dose 100 MLS/HR; Start 03/23/16 at 02:00 Acetaminophen (Tylenol Tab) 650 mg Q4H PRN PO PAIN AND OR ELEVATED TEMP; Start 03/23/16 at 02:00 Linezolid (Zyvox) 600 mg BID PO Last administered on 03/31/16 20:32; Admin Dose 600 MG; Start 03/25/16 at 21:00 Acetaminophen/ Hydrocodone Bitart ([place] (5/325)) 1 tab Q4H PRN PO PAIN; Start 03/27/16 at 16:00 Tramadol HCl (Ultram) 50 mg Q6H PRN PO PAIN LEVEL 6-10 Last administered on 01:53; Admin Dose 50 MG; Start 03/28/16 at 01:30 Levofloxacin (Levaquin) 500 mg DAILY@06 PO Last administered on 04/01/16 05:22 ; Admin Dose 500 MG; Start 04/01/16 at 06:00 Lactobacillus Acidoph/Bulgaricus (Floranex) 1 tab TID PO ; Start 03/31/16 at 13: 00 HARJINDER MAKI NP Apr 01, 2016 13:06
--- NOTE | 2016-04-01 15:30 | PN ---
Date/Time of Note Date/Time of Note DATE: 04/01/16 TIME: 15:27 Assessment/Plan VTE Prophylaxis VTE Prophylaxis Intervention: SCD's Lines/Catheters IV Catheter Type (from Nrsg): Peripheral IV Assessment/Plan Chief Complaint/Hosp Course 1. Sepsis as evidenced by leukocytosis and fever, secondary to severe urinary tract infection, decubitus ulcer, as well as left lower extremity ulcer and OM -cont Abx, awaiting approval for Zyvox PO, ID on case 2. History of spina bifida with below waist paralysis and wheelchair bound. 3. Microcytic anemia, evaluate for iron deficiency in PPx- SCD's Problems: Subjective 24 Hr Interval Summary Constitutional: no complaints Exam/Review of Systems Vital Signs Vitals Vital Signs Date Time Temp Pulse Resp B/P Pulse Ox O2 Delivery O2 Flow Rate FiO2 03/31/16 20:03 98.5 74 18 118/67 97 Intake and Output 03/31/16 03/31/16 04/01/16 15:00 23:00 07:00 Intake Total 1050 ml 920 ml 1520 ml Output Total 2200 ml 2000 ml Balance 1050 ml -1280 ml -480 ml Exam Constitutional: alert Respiratory: clear to auscultation Cardiovascular: regular rate and rhythm Gastrointestinal: soft, No distended Musculoskeletal: nl extremities to inspection Results Result Diagram: 03/31/1619 03/31/16518 Medications Medications Current Medications Sodium Chloride (NS) 1,000 ml @ 100 mls/hr Q10H IV Last administered on 23:33; Admin Dose 100 MLS/HR; Start 03/23/16 at 02:00 Acetaminophen (Tylenol Tab) 650 mg Q4H PRN PO PAIN AND OR ELEVATED TEMP; Start 03/23/16 at 02:00 Linezolid (Zyvox) 600 mg BID PO Last administered on 03/31/16 20:32; Admin Dose 600 MG; Start 03/25/16 at 21:00 Acetaminophen/ Hydrocodone Bitart ([place] (5/325)) 1 tab Q4H PRN PO PAIN; Start 03/27/16 at 16:00 Tramadol HCl (Ultram) 50 mg Q6H PRN PO PAIN LEVEL 6-10 Last administered on 01:53; Admin Dose 50 MG; Start 03/28/16 at 01:30 Levofloxacin (Levaquin) 500 mg DAILY@06 PO Last administered on 04/01/16t 05:22 ; Admin Dose 500 MG; Start 04/01/16 at 06:00 Lactobacillus Acidoph/Bulgaricus (Floranex) 1 tab TID PO ; Start 03/31/16 at 13: 00 SUSIE GRULLON Apr 01, 2016 15:29
[2016-04-01] MEDS: SOD CHLORIDE 0.9% 1,000 ML IV SCH (18:35)
--- NOTE | 2016-04-01 20:25 | PN ---
Date/Time of Note Date/Time of Note DATE: 04/01/16 TIME: 20:23 Assessment/Plan Lines/Catheters IV Catheter Type (from [facility]): Peripheral IV [facility] in Place (from [facility]): Yes Assessment/Plan Chief Complaint/Hosp Course 1. Sacrococcygeal decubitus ulcers -offload -nutrition optimization -vit c -local care -debridement prn 2. Sacrococcygeal osteomyelitis -abx per id -encourage compliance -consider HBO as outpt 3. BMI 35 -encourage nutrition optimization -encourage upper body exercise 4. Recurrent UTI -abx -optimize hygiene 5. Thrombocytosis 2nd inflammatory process -as above 6. Paraplegia and Spina Bifida -off loading -nutritional optimization -medical optimization -weight loss 7. Anemia -monitor 8. Leukocytosis improved Thank you very much for consulting me in this patient's care, Problems: Subjective 24 Hr Interval Summary No f/c. No cp/sob. No cough. No drew/dizzy/visual or neuro changes. No dysuria. No bloating. Bowel function. Exam/Review of Systems Vital Signs Vitals Vital Signs Date Time Temp Pulse Resp B/P Pulse Ox O2 Delivery O2 Flow Rate FiO2 03/31/16 20:03 98.5 74 18 118/67 97 Intake and Output 03/31/16 03/31/16 04/01/16 15:00 23:00 07:00 Intake Total 1050 ml 920 ml 1520 ml Output Total 2200 ml 2000 ml Balance 1050 ml -1280 ml -480 ml Exam Free Text/Dictation Constitutional: alert, obese, oriented, No distress Psych: No confusion, No nl mood/affect Head: atraumatic, normocephalic Eyes: EOMI, PERRL, nl conjunctiva, No icteric ENMT: mucosa pink and moist, nl external ears & nose Neck: non-tender, supple, No jvd Respiratory: normal air movement, No congested cough, No labored breathing Cardiovascular: regular rate and rhythm, No edema Gastrointestinal: non-tender, soft, No distended, No rebound or guarding Musculoskeletal: muscle weakness, No joint tenderness, No nl extremities to inspection, No nl gait and stance Extremities: No calf tenderness Neurological: nl mental status, nl speech, No nl strength (LE) Skin: rash or lesions (Decubitus ulcers), No diaphoresis Lymph: nontender Results Result Diagram: 03/31/16 0519 03/31/16 0519 ELIEZER HERNANDEZ MD Apr 01, 2016 20:25
[2016-04-01 20:55] VITALS: BP 104/59; RESP 19
[2016-04-02] MEDS: SOD CHLORIDE 0.9% 1,000 ML IV SCH (02:00)
[2016-04-02] MEDS: LEVOFLOXACIN 500 MG TAB PO SCH (05:34)
[2016-04-02 07:52] VITALS: BP 116/75; RESP 18
[2016-04-02] MEDS: LACTOBACILLUS CHEW TAB PO SCH ×3 (08:35→21:00)
[2016-04-02] MEDS: ZYVOX 600 MG TAB PO SCH ×2 (08:35→22:12)
--- NOTE | 2016-04-02 13:05 | CONS ---
Date/Time of Note Date/Time of Note DATE: 04/02/16 TIME: 13:05 Assessment/Plan Assessment/Plan Chief Complaint/Hosp Course SUBJECTIVE: No acute changes. The patient looks comfortable. No fevers. ANTIMICROBIALS: 1. Levaquin 2. Zyvox. DIAGNOSTICS: X-ray of the sacrum revealed evidence for osteomyelitis. No laboratories today. PHYSICAL EXAMINATION: GENERAL: Ill-appearing young man who is lying comfortably in bed. HEENT: Head atraumatic, normocephalic. Sclerae anicteric. Buccal mucosa pink. NECK: Supple. CHEST: Rise symmetrical. Breath sounds clear. HEART: S1, S2. ABDOMEN: Soft, bowel tones present. EXTREMITIES: With lower extremities wasting. ASSESSMENT: 1. Sacral decubitus with osteomyelitis. 2. Medical noncompliance. 3. History of spina bifida. 4. Paraplegia. 5. Bacteriuria with urine culture growing multidrug resistant Morganella morganii, but only 10,000 colonies likely colonized PLAN: Remains unchanged. Continue local wound care. Anticipate treating with long-term IV antibiotics, with possibly changing Zyvox or IV daptomycin given the fact that patient had been refusing vancomycin trough drawing, and oral Levaquin, f/u surgical rec-s, probiotics. [facility] staff Problems: Consultation Date/Type/Reason Admit Date/Time Mar 22, 2016 at 22:01 Type of Consultation: ID Referring Provider: LISSET WISE MD Exam/Review of Systems Vital Signs Vitals Vital Signs Date Time Temp Pulse Resp B/P Pulse Ox O2 Delivery O2 Flow Rate FiO2 04/02/16 07:52 98.4 105 18 116/75 96 Intake and Output 04/01/16 04/01/16 04/02/16 15:00 23:00 07:00 Intake Total 720 ml 500 ml Output Total 1700 ml 1200 ml Balance -980 ml -700 ml Results Result Diagram: 03/31/1651803/31/16518 Medications Medications Current Medications Acetaminophen (Tylenol Tab) 650 mg Q4H PRN PO PAIN AND OR ELEVATED TEMP; Start 03/23/16 at 02:00 Linezolid (Zyvox) 600 mg BID PO Last administered on 04/02/16t 08:35; Admin Dose 600 MG; Start 03/25/16 at 21:00 Acetaminophen/ Hydrocodone Bitart ([place] (5/325)) 1 tab Q4H PRN PO PAIN; Start 03/27/16 at 16:00 Tramadol HCl (Ultram) 50 mg Q6H PRN PO PAIN LEVEL 6-10 Last administered on 01:53; Admin Dose 50 MG; Start 03/28/16 at 01:30 Levofloxacin (Levaquin) 500 mg DAILY@06 PO Last administered on 04/02/16 05:34 ; Admin Dose 500 MG; Start 04/01/16 at 06:00 Lactobacillus Acidoph/Bulgaricus (Floranex) 1 tab TID PO Last administered on 08:35; Admin Dose 1 TAB; Start 03/31/16 at 13:00 HARJINDER MAKI NP Apr 02, 2016 13:05
--- NOTE | 2016-04-02 16:16 | PN ---
Date/Time of Note Date/Time of Note DATE: 04/02/16 TIME: 16:15 Assessment/Plan VTE Prophylaxis VTE Prophylaxis Intervention: SCD's Lines/Catheters IV Catheter Type (from Nrsg): Peripheral IV Assessment/Plan Chief Complaint/Hosp Course 1. Sepsis as evidenced by leukocytosis and fever, secondary to severe urinary tract infection, decubitus ulcer, as well as left lower extremity ulcer and OM -cont Abx, awaiting approval for Zyvox PO, ID on case 2. History of spina bifida with below waist paralysis and wheelchair bound. 3. Microcytic anemia, evaluate for iron deficiency in PPx- SCD's Problems: Subjective 24 Hr Interval Summary Constitutional: no complaints Exam/Review of Systems Vital Signs Vitals Vital Signs Date Time Temp Pulse Resp B/P Pulse Ox O2 Delivery O2 Flow Rate FiO2 04/02/16 07:52 98.4 105 18 116/75 96 Intake and Output 04/01/16 04/01/16 04/02/16 15:00 23:00 07:00 Intake Total 720 ml 500 ml Output Total 1700 ml 1200 ml Balance -980 ml -700 ml Exam Constitutional: alert, oriented Respiratory: clear to auscultation Cardiovascular: regular rate and rhythm Gastrointestinal: soft, No distended Musculoskeletal: nl extremities to inspection Results Result Diagram: 03/31/1651803/31/16518 Medications Medications Current Medications Acetaminophen (Tylenol Tab) 650 mg Q4H PRN PO PAIN AND OR ELEVATED TEMP; Start 03/23/16 at 02:00 Linezolid (Zyvox) 600 mg BID PO Last administered on 04/02/16 08:35; Admin Dose 600 MG; Start 03/25/16 at 21:00 Acetaminophen/ Hydrocodone Bitart ([place] (5/325)) 1 tab Q4H PRN PO PAIN; Start 03/27/16 at 16:00 Tramadol HCl (Ultram) 50 mg Q6H PRN PO PAIN LEVEL 6-10 Last administered on 01:53; Admin Dose 50 MG; Start 03/28/16 at 01:30 Levofloxacin (Levaquin) 500 mg DAILY@06 PO Last administered on 04/02/16 05:34 ; Admin Dose 500 MG; Start 04/01/16 at 06:00 Lactobacillus Acidoph/Bulgaricus (Floranex) 1 tab TID PO Last administered on t 08:35; Admin Dose 1 TAB; Start 03/31/16 at 13:00 SUSIE GRULLON Apr 02, 2016 16:16
--- NOTE | 2016-04-02 17:20 | PN ---
Date/Time of Note Date/Time of Note DATE: 04/02/16 TIME: 17:19 Assessment/Plan Lines/Catheters IV Catheter Type (from [facility]): Peripheral IV Assessment/Plan Chief Complaint/Hosp Course 1. Sacrococcygeal decubitus ulcers -offload -nutrition optimization -vit c -local care -debridement prn 2. Sacrococcygeal osteomyelitis -abx per id -encourage compliance -consider HBO as outpt 3. BMI 35 -encourage nutrition optimization -encourage upper body exercise 4. Recurrent UTI -abx -optimize hygiene 5. Thrombocytosis 2nd inflammatory process -as above 6. Paraplegia and Spina Bifida -off loading -nutritional optimization -medical optimization -weight loss 7. Anemia -monitor 8. Leukocytosis improved Thank you, Problems: Subjective 24 Hr Interval Summary No f/c. No cp/sob. No cough. No drew/dizzy/visual or neuro changes. No dysuria. No bloating. Bowel function. Exam/Review of Systems Vital Signs Vitals Vital Signs Date Time Temp Pulse Resp B/P Pulse Ox O2 Delivery O2 Flow Rate FiO2 04/02/16 07:52 98.4 105 18 116/75 96 Intake and Output 04/01/16 04/01/16 04/02/16 15:00 23:00 07:00 Intake Total 720 ml 500 ml Output Total 1700 ml 1200 ml Balance -980 ml -700 ml Exam Free Text/Dictation Constitutional: alert, obese, oriented, No distress Psych: No confusion, No nl mood/affect Head: atraumatic, normocephalic Eyes: EOMI, PERRL, nl conjunctiva, No icteric ENMT: mucosa pink and moist, nl external ears & nose Neck: non-tender, supple, No jvd Respiratory: normal air movement, No congested cough, No labored breathing Cardiovascular: regular rate and rhythm, No edema Gastrointestinal: non-tender, soft, No distended, No rebound or guarding Musculoskeletal: muscle weakness, No joint tenderness, No nl extremities to inspection, No nl gait and stance Extremities: No calf tenderness Neurological: nl mental status, nl speech, No nl strength (LE) Skin: rash or lesions (Decubitus ulcers), No diaphoresis Lymph: nontender Results Result Diagram: 03/31/16 0519 03/31/16 0519 ELIEZER HERNANDEZ MD Apr 02, 2016 17:20
[2016-04-02 21:49] VITALS: BP 109/72; RESP 18
[2016-04-03] MEDS: LEVOFLOXACIN 500 MG TAB PO SCH (05:25)
[2016-04-03 08:00] VITALS: BP 105/68; RESP 18
[2016-04-03] MEDS: LACTOBACILLUS CHEW TAB PO SCH ×3 (09:50→20:43)
[2016-04-03] MEDS: ZYVOX 600 MG TAB PO SCH ×2 (09:50→20:43)
--- NOTE | 2016-04-03 11:31 | CONS ---
Date/Time of Note Date/Time of Note DATE: 04/03/16 TIME: 11:30 Assessment/Plan Assessment/Plan Chief Complaint/Hosp Course SUBJECTIVE: No acute changes. The patient is alert, looks comfortable. No fevers. Wants to go home ANTIMICROBIALS: 1. Levaquin 2. Zyvox. DIAGNOSTICS: X-ray of the sacrum revealed evidence for osteomyelitis. No laboratories today. PHYSICAL EXAMINATION: GENERAL: Ill-appearing young man who is lying comfortably in bed. HEENT: Head atraumatic, normocephalic. Sclerae anicteric. Buccal mucosa pink. NECK: Supple. CHEST: Rise symmetrical. Breath sounds clear. HEART: S1, S2. ABDOMEN: Soft, bowel tones present. EXTREMITIES: With lower extremities wasting. ASSESSMENT: 1. Sacral decubitus with osteomyelitis. 2. Medical noncompliance. 3. History of spina bifida. 4. Paraplegia. 5. Bacteriuria with urine culture growing multidrug resistant Morganella morganii, but only 10,000 colonies likely colonized PLAN: Remains unchanged. Continue local wound care. Anticipate treating with long-term IV antibiotics, with possibly changing Zyvox or IV daptomycin given the fact that patient had been refusing vancomycin trough drawing, and oral Levaquin, f/u surgical rec-s, probiotics. [facility] staff Problems: Consultation Date/Type/Reason Admit Date/Time Mar 22, 2016 at 22:01 Type of Consultation: ID Referring Provider: LISSET WISE MD Exam/Review of Systems Vital Signs Vitals Vital Signs Date Time Temp Pulse Resp B/P Pulse Ox O2 Delivery O2 Flow Rate FiO2 04/03/16 08:00 98.8 93 18 105/68 96 Intake and Output 04/02/16 04/02/16 04/03/16 15:00 23:00 07:00 Intake Total 800 ml 800 ml Output Total 1200 ml 3200 ml Balance -400 ml -2400 ml Results Result Diagram: 03/31/16 0519 03/31/16518 Medications Medications Current Medications Acetaminophen (Tylenol Tab) 650 mg Q4H PRN PO PAIN AND OR ELEVATED TEMP; Start 03/23/16 at 02:00 Linezolid (Zyvox) 600 mg BID PO Last administered on 04/03/16t 09:50; Admin Dose 600 MG; Start 03/25/16 at 21:00 Acetaminophen/ Hydrocodone Bitart ([place] (5/325)) 1 tab Q4H PRN PO PAIN; Start 03/27/16 at 16:00 Tramadol HCl (Ultram) 50 mg Q6H PRN PO PAIN LEVEL 6-10 Last administered on 01:53; Admin Dose 50 MG; Start 03/28/16 at 01:30 Levofloxacin (Levaquin) 500 mg DAILY@06 PO Last administered on 04/03/16 05:25 ; Admin Dose 500 MG; Start 04/01/16 at 06:00 Lactobacillus Acidoph/Bulgaricus (Floranex) 1 tab TID PO Last administered on 09:50; Admin Dose 1 TAB; Start 03/31/16 at 13:00 HARJINDER MAKI NP Apr 03, 2016 11:31
--- NOTE | 2016-04-03 13:24 | PDOCDIS ---
Discharge Instructions CONDITION Patient Condition: Good HOME CARE INSTRUCTIONS: Diet Instructions: Regular ACTIVITY: Activity Restrictions: No Restrictions FOLLOW UP/APPOINTMENTS Appointments F/U WITH YOUR PCP IN 1-2 WEEKS SUSIE GRULLON Apr 03, 2016 13:24
[2016-04-03 20:20] VITALS: BP 114/65; RESP 18
--- NOTE | 2016-04-04 09:16 | DS ---
DATE OF ADMISSION: 03/22/2016 DATE OF DISCHARGE: 04/04/2016 DISCHARGE DIAGNOSES: 1. Sepsis secondary to urinary tract infection, decubitus ulcers, as well as left lower extremity u lcer and osteomyelitis. The patient will be discharged with Zyvox and Levaquin p.o. 2. History of spina bifida and below-waist paralysis. 3. Microcytic anemia secondary to chronic disease. HOSPITAL COURSE: The patient is a 25-year-old male with a history of spina bifida, wheelchair bound and paralyzed from the waist down. Presented to the ED with abdominal pain. The patient was diagn osed with sepsis with evidence of leukocytosis, fever, thought secondary to combination of UTI, decu bitus ulcer, as well as left lower extremity ulcer. The patient did have an MRI during this hospita lization, and MRI was of the sacrum, which showed a pattern consistent with a stage IV decubitus ulc er posterior to the sacrococcygeal junction with signal alteration enhancing the estimated 2 c m caudal dimension consistent with osteomyelitis, and abscess demonstrated. Spina bifida visualized of the lower lumbar spine with muscle atrophy was also noted. Patient was seen by ID during his ho spitalization. The patient was put on Zyvox as well as Levaquin. The patient was very noncompliant and was refusing a.m. labs, was refusing turns, and did not want any further IV placed once it was actually removed. The patient wanted to go home. It was felt that he was stable for d/c with p.o. antibiotics. Patient was cleared for d/c by ID. On the day of d/c, patient's vitals, labs, and phy sical exam were stable. He had no acute complaints on day of d/c. His questions were answered. CONDITION ON DISCHARGE: Stable. DISPOSITION: To home. MEDICATIONS: The patient was given a prescription for Zyvox 600 mg p.o. b.i.d. for 42 days and Lev aquin 500 mg p.o. daily for 42 days. The patient has no other reported home medications. FOLLOWUP: The patient is to follow up with his PCP in 1 to 2 weeks. Patient is also to follow up [facility] for home safety evaluation. Greater than 30 minutes spent coordinating discharge of this patient. Dictated By: SUSIE GRULLON MD BS/NTS Conf#: [id number] DID#: [id number]
--- NOTE | 2016-04-04 20:22 | PN ---
Date/Time of Note Date/Time of Note DATE: 04/03/16 TIME: 20:21 Assessment/Plan Lines/Catheters IV Catheter Type (from Nrs): No IV access Miranda in Place (from Nrs): Yes Assessment/Plan Chief Complaint/Hosp Course 1. Sacrococcygeal decubitus ulcers -offload -nutrition optimization -vit c -local care -debridement prn 2. Sacrococcygeal osteomyelitis -abx per id -encourage compliance -consider HBO as outpt 3. BMI 35 -encourage nutrition optimization -encourage upper body exercise 4. Recurrent UTI -abx -optimize hygiene 5. Thrombocytosis 2nd inflammatory process -as above 6. Paraplegia and Spina Bifida -off loading -nutritional optimization -medical optimization -weight loss 7. Anemia -monitor 8. Leukocytosis improved Thank you, Late entry 04/03 Problems: Subjective 24 Hr Interval Summary No f/c. No cp/sob. No cough. No drew/dizzy/visual or neuro changes. No dysuria. No bloating. Bowel function. Exam/Review of Systems Vital Signs Vitals Vital Signs Date Time Temp Pulse Resp B/P Pulse Ox O2 Delivery O2 Flow Rate FiO2 04/03/16 20:20 98.3 105 18 114/65 96 Intake and Output 04/03/16 04/03/16 04/04/16 15:00 23:00 07:00 Intake Total 1220 ml 400 ml Output Total 1200 ml 250 ml Balance 20 ml 150 ml Exam Free Text/Dictation Constitutional: alert, obese, oriented, No distress Psych: No confusion, No nl mood/affect Head: atraumatic, normocephalic Eyes: EOMI, PERRL, nl conjunctiva, No icteric ENMT: mucosa pink and moist, nl external ears & nose Neck: non-tender, supple, No jvd Respiratory: normal air movement, No congested cough, No labored breathing Cardiovascular: regular rate and rhythm, No edema Gastrointestinal: non-tender, soft, No distended, No rebound or guarding Musculoskeletal: muscle weakness, No joint tenderness, No nl extremities to inspection, No nl gait and stance Extremities: No calf tenderness Neurological: nl mental status, nl speech, No nl strength (LE) Skin: rash or lesions (Decubitus ulcers), No diaphoresis Lymph: nontender Results Result Diagram: 03/31/1651803/31/16518 ELIEZER HERNANDEZ MD Apr 04, 2016 20:22
== END 2016-04-04 01:30 | disposition home or self-care (01) | DRG 871 ==
LOC: E/R 17:56 → MS4 22:01 → PP2 03-26 15:38
PROVIDERS: ADMIT Internal Medicine; ATTEND Internal Medicine
DX: A41.9 Sepsis, unspecified organism (principal); L89.154 Pressure ulcer of sacral region, stage 4; E87.0 Hyperosmolality and hypernatremia; E87.2 Acidosis; G82.20 Paraplegia, unspecified; N39.0 Urinary tract infection, site not specified; M46.28 Osteomyelitis of vertebra, sacral and sacrococcygeal region; L97.929 Non-pressure chronic ulcer of unspecified part of left lower leg with unspecified severity; L97.919 Non-pressure chronic ulcer of unspecified part of right lower leg with unspecified severity; Q05.9 Spina bifida, unspecified; Z91.19 Patient's noncompliance with other medical treatment and regimen; N31.9 Neuromuscular dysfunction of bladder, unspecified; E66.9 Obesity, unspecified; D63.8 Anemia in other chronic diseases classified elsewhere; Z99.3 Dependence on wheelchair; Z68.35 Body mass index [BMI] 35.0-35.9, adult
CPT/HCPCS: 72196; 74177; 80048; 80053; 81001; 81003; 82150; 83605; 83690; 84484; 85025; 85610; 85651; 85730; 87040; 87086; 93005; 96374; 96375; 96376; J0692; J0744; J1170; J1885; J2270; J2405; J3370; J7030; Q9967

== ENCOUNTER 2016-06-06 02:42 | Emergency (ER) | payer OTHER ==
[~2016-06-06] VITALS: Ht 152.4 cm; Wt 63.6 kg
[~2016-06-06 02:42] MED LIST: LEVO500T10 PO; LINE600T6 PO
[2016-06-06 02:46] VITALS: Ht 152.4 cm; Wt 63.6 kg
--- NOTE | 2016-06-06 02:56 | ERA ---
ER Documentation Chief Complaint Date/Time DATE: 06/06/16 TIME: 02:55 Chief Complaint epigastric abdominal pain HPI The patient is a 35-year-old male, presenting to the ER because of epigastric abdominal pain that began about 30 minutes prior to arrival after eating at [employer]. He made himself vomit twice, initially food then mucus. He felt better after vomiting. He had similar symptoms previously. He denies fever, chills, neck pain, chest pain, dyspnea, diarrhea, constipation. He has a indwelling Miranda catheter since , usually change by urologist once a month. He smokes socially, denies drinking Past medical history: Spina bifida Past surgical history: History of small bowel obstruction ROS All systems reviewed and are negative except as per history of present illness. Medications Home Meds Active Scripts Ibuprofen* (Motrin*) 600 Mg Tab, 600 MG PO Q6H Y for PAIN AND OR ELEVATED TEMP, #20 TAB Prov:GIANLUCA ELAM MD 06/06/16 Ondansetron (Ondansetron Odt) 4 Mg Tab.rapdis, 4 MG PO Q6H Y for NAUSEA AND/OR VOMITING, #10 TAB Prov:GIANLUCA ELAM MD 06/06/16 Levofloxacin* (Levofloxacin*) 500 Mg Tablet, 500 MG PO DAILY for 42 Days, TAB Prov:SUSIE GRULLON 03/31/16 Linezolid (Linezolid) 600 Mg Tablet, 600 MG PO BID for 42 Days, TAB Prov:SUSIE GRULLON 03/31/16 Allergies Allergies: Coded Allergies: morphine (Verified Allergy, Mild, 03/23/16) FEVERISH PER PATIENT PMhx/Soc History of Surgery: Yes (back and leg unspecified) Anesthesia Reaction: No Hx Neurological Disorder: Yes (LE PARALYSIS DUE TO SPINA BIFIDA) Hx Respiratory Disorders: No Hx Cardiac Disorders: No Hx Psychiatric Problems: No Hx Miscellaneous Medical Probl: No Hx Alcohol Use: No Hx Substance Use: No Hx Tobacco Use: No Physical Exam Vitals Vital Signs Date Time Temp Pulse Resp B/P Pulse Ox O2 Delivery O2 Flow Rate FiO2 06/06/16 04:37 107 18 120/75 95 06/06/16 02:53 69 23 139/99 100 Room Air 06/06/16 02:46 98.1 69 18 159/93 97 Physical Exam Const: No acute distress. Head: Atraumatic. Eyes: Normal Conjunctiva. ENT: Normal External Ears, Nose and Mouth. Neck: Full range of motion. No meningismus. Resp: Clear to auscultation bilaterally. Cardio: Regular rate and rhythm, no murmurs. Abd: Soft, non distended, normal bowel sounds, mild epigastric abdominal tenderness, no rigidity, rebound, CVA tenderness Skin: No petechiae or rashes. Back: No midline or flank tenderness. Ext: Lower extremity flaccid Neur: Awake and alert. Limited due to his condition Psych: Normal Mood and Affect. Result Diagram: 06/06/16 0310 06/06/16 0450 Results 24 hrs Laboratory Tests Test 06/06/16 03:10 06/06/16 04:50 White Blood Count 11.510^3/ul Red Blood Count 6.4910^6/ul Hemoglobin 13.6g/dl Hematocrit 44.4% Mean Corpuscular Volume 68.4fl Mean Corpuscular Hemoglobin 21.0pg Mean Corpuscular Hemoglobin Concent 30.6g/dl Red Cell Distribution Width 20.4% Platelet Count 88341^3/UL Mean Platelet Volume 10.8fl Neutrophils % 66.0% Lymphocytes % 25.0% Monocytes % 6.0% Eosinophils % 3.0% Neutrophils # 7.610^3/ul Lymphocytes # 2.910^3/ul Monocytes # 0.710^3/ul Eosinophils # 0.310^3/ul Differential Comment MANUAL DIFF Sodium Level 145mmol/L Potassium Level 4.0mmol/L Chloride Level 108mmol/L Carbon Dioxide Level 25mmol/L Anion Gap 16 Blood Urea Nitrogen 14mg/dl Creatinine 0.60mg/dl Glucose Level 104mg/dl Calcium Level 8.6mg/dl Total Bilirubin 0.1mg/dl Direct Bilirubin 0.00mg/dl Indirect Bilirubin 0.1mg/dl Aspartate Amino Transf (AST/SGOT) 29IU/L Alanine Aminotransferase (ALT/SGPT) 33IU/L Alkaline Phosphatase 228IU/L Total Protein 7.2g/dl Albumin 3.8g/dl Globulin 3.40g/dl Albumin/Globulin Ratio 1.11 Lipase 159U/L Current Medications Medications (Trade) Dose Ordered Sig/Fatoumata Route PRN Reason Start Time Stop Time Status Last Admin Dose Admin Sodium Chloride (NS) 1,000 ml @ 1,000 mls/hr Q1H STAT IV 06/06/16 03:03 06/06/16 04:02 DC 06/06/16 03:21 Ondansetron HCl (Zofran Inj) 4 mg ONCE STAT IV 06/06/16 03:03 06/06/16 03:06 DC 06/06/16 03:23 Ketorolac Tromethamine (Toradol) 30 mg ONCE STAT IV 06/06/16 03:03 06/06/16 03:06 DC 06/06/16 03:23 Pantoprazole (Protonix Iv) 40 mg ONCE ONCE IV 06/06/16 04:00 06/06/16 04:01 DC 06/06/16 04:30 Hydromorphone HCl (Dilaudid) 1 mg ONCE STAT IV 06/06/16 04:19 06/06/16 04:20 DC 06/06/16 04:31 Procedures/[place] [address] Radiology Main Line: [phone] DIAGNOSTIC IMAGING REPORT Patient: ANGELIC GIFFORD : 1990 Age: 25 Sex: M MR #: [id number] DOS: 06/06/16 0305 Ordering MD: GIANLUCA ELAM MD Location: E/R Room/Bed: PROCEDURE: ULTRASOUND LIMITED ABDOMEN CLINICAL INDICATION: 25-year-old male with abdominal pain. TECHNIQUE: Multiple sonographic of the right upper quadrant of the abdomen were obtained. The images were reviewed on a PACS workstation. COMPARISON: CT abdomen/pelvis March 22, 2016. FINDINGS: The pancreas is not visualized secondary to overlying bowel gas. The liver displays normal echogenicity. The liver measures 15.7 cm in length. No evidence of intrahepatic biliary ductal dilatation is seen. The portal and hepatic veins are unremarkable. The gallbladder demonstrates no wall thickening, sludge, nor stones. No pericholecystic fluid is seen. The common bile duct measures 3.6 mm and is not dilated. The right kidney was not well visualized secondary to overlying bowel gas. No free fluid is seen. IMPRESSION: Unremarkable right upper quadrant abdominal ultrasound however the right kidney and pancreas were not able to be visualized secondary to overlying bowel gas. .Edilson Barclay MD, MD Date Time Electronically viewed and signed by .Edilson Barclay MD, on 06/06/2016 03:45 .M/ CC: GIANLUCA ELAM MD [place] [address] Radiology Main Line: [phone] DIAGNOSTIC IMAGING REPORT Patient: ANGELIC GIFFORD : 1990 Age: 25 Sex: M MR #: [id number] DOS: 06/06/16 0435 Ordering MD: GIANLUCA ELAM MD Location: E/R Room/Bed: PROCEDURE: CT Abdomen and Pelvis without contrast. CLINICAL INDICATION: Abdominal pain. TECHNIQUE: Routine axial tomographic images of the abdomen and pelvis were obtained from the domes the diaphragm to the symphysis pubis. The patient was scanned withoutoral or intravenous contrast. Coronal and sagittal reformatted images were obtained from the axial source images. Images were reviewed on a high-resolution PACS workstation. One or more of the following dose reduction techniques were used: Automated exposure control, Adjustment of the mA and/or kV according to patient size, and/ or Use of iterative reconstruction technique. The total exam CTDI equals 15.77 mGy and the total exam DLP equals 934.29 mGy-cm. COMPARISON: CT abdomen and pelvis dated 03/22/2016 FINDINGS: The visualized portions of the lung bases demonstrate bibasilar atelectasis. Evaluation of the intra-abdominal solid organs is somewhat limited on this noncontrast examination. The liver appears normal in size. There is no intra or extrahepatic biliary dilatation. The gallbladder is unremarkable by CT criteria. The spleen, pancreas, and adrenal glands are unremarkable. The kidneys are symmetric in size. No renal, ureteral, or bladder calculi are identified. No perinephric inflammatory changes are identified. The urinary bladder wall is lobular and thickened. There is a Miranda catheter with tip in the distal urethra. A ventriculoperitoneal shunt catheter terminates in the right lower quadrant. The bowel demonstrates normal course and caliber. There is no evidence of bowel obstruction. The appendix is normal in appearance. The pelvic organs are grossly unremarkable. No intraperitoneal free fluid, free air, or abscess is identified. Again noted are prominent inguinal and pelvic sidewall lymph nodes. The aorta is normal in caliber. The osseous structures demonstrate posterior fusion anomalies from L2 distally. There is marked atrophy of the paraspinal muscles. The acetabular shallow bilaterally. There is blunting of the right femoral head with cortical destruction along the femoral and acetabular margin of the right hip. There is osteolysis of the left femoral head and pseudoarticulation of the left lesser trochanter with the acetabulum. There is soft tissue thickening posteriorly along the ischial tuberosities bilaterally and at the sacrococcygeal junction. IMPRESSION: 1. Limited noncontrast CT of the abdomen and pelvis. No acute intra-abdominal abnormality identified. 2. Malpositioned Miranda catheter with tip in the distal urethra. 3. Lobular, thickened urinary bladder wall, likely reflecting chronic bladder outlet obstruction. There is no significant distension of the urinary bladder. 4. Spina bifida with sequela of chronic neuromuscular disease. 5. Soft tissue thickening posteriorly at the sacrococcygeal junction and bilateral ischial tuberosities. Findings are suggestive of decubitus ulcers, extend to the underlying bony cortex. 6. Ventriculoperitoneal shunt tubing terminates in the right lower quadrant. 7. Prominent inguinal and pelvic sidewall lymph nodes, not significantly changed when compared to the prior examination. RPTAT: HH .Caity Polk MD, MD Date Time Electronically viewed and signed by .Caity Polk MD, on 06/06/2016 05 :12 .G/ CC: GIANLUCA ELAM MD MEDICAL MAKING DECISION: The patient is a 25-year-old male, presenting with acute abdominal pain of unclear etiology. He was treated with 1 L normal saline for acute dehydration, Zofran 4 mg IV for nausea, Toradol 30 mg IV and Dilaudid 1 mg IV for pain and Protonix 40 minute IV for epigastric abdominal pain with good response. The differential diagnoses considered include but are not limited to cholelithiasis, cholecystitis, cystitis, pancreatitis, hepatitis , gastritis, peptic ulcer disease, gastric ulcer, appendicitis, diverticulitis, cholangitis, choledocholithiasis, partial small bowel obstruction. We remove the old Miranda catheter and unfortunately were unable to insert a new Miranda catheter. He then informed us that he usually goes to [facility] urology clinic for Miranda catheter change Consultation: I discussed the patient with the on-call urologist Dr. Lennon at 5: 30 AM, who was made aware of our inability to reinsert a Miranda catheter. He agreed to come in in the morning to reinsert the Miranda catheter for the patient prior to going home Departure Diagnosis: Primary Impression: Abdominal pain Additional Impression: Urinary retention Condition: Good Comments He was discharged with Zofran ODT and Motrin I discussed the findings with the patient. I advised the patient to follow-up with the primary physician in about 1-2 days, sooner if needed and return if any concern. The patient's blood pressure was elevated (>120/80) but appears stable without evidence of hypertension emergency or urgency. The patient was counseled about the risks of hypertension and urged to pursue outpatient monitoring and therapy within a week with their primary care physician. GIANLUCA ELAM MD Jun 06, 2016 02:56
[2016-06-06] MEDS ORDERED: ONDANSETRON 4 MG INJ IV STA (03:03)
[2016-06-06] MEDS ORDERED: KETOROLAC 30 MG INJ IV STA (03:03)
[2016-06-06] MEDS ORDERED: SOD CHLORIDE 0.9% 1,000 ML IV STA (03:03)
[2016-06-06 03:23] LABS: ADD SCAN DIFF NO
[2016-06-06 03:26] LABS: ABNORMAL IP MESSAGE 1; HEMATOCRIT 44.4 % (42.0-52.0); HEMOGLOBIN 13.6 g/dl (14.0-18.0); MEAN CORPUSCULAR HGB CONC 30.6 g/dl (32.0-37.0); MEAN CORPUSCULAR VOLUME 68.4 fl (82.0-101.0); PLATELET COUNT 424 10^3/UL (140-415); RED BLOOD COUNT 6.49 10^6/ul (4.70-6.10); RED CELL DISTRIBUTION WIDTH 20.4 % (11.5-14.5); WHITE BLOOD COUNT 11.5 10^3/ul (4.8-10.8)
[2016-06-06 03:31] LABS: MEAN PLATELET VOLUME 10.8 fl (7.4-10.4)
--- NOTE | 2016-06-06 03:45 | RADRPT ---
PROCEDURE: ULTRASOUND LIMITED ABDOMEN CLINICAL INDICATION: 25-year-old male with abdominal pain. TECHNIQUE: Multiple sonographic of the right upper quadrant of the abdomen were obtained. The imag es were reviewed on a PACS workstation. COMPARISON: CT abdomen/pelvis March 22, 2016. FINDINGS: The pancreas is not visualized secondary to overlying bowel gas. The liver displays normal echogenicity. The liver measures 15.7 cm in length. No evidence of intrah epatic biliary ductal dilatation is seen. The portal and hepatic veins are unremarkable. The gallbladder demonstrates no wall thickening, sludge, nor stones. No pericholecystic fluid is see n. The common bile duct measures 3.6 mm and is not dilated. The right kidney was not well visualized secondary to overlying bowel gas. No free fluid is seen. IMPRESSION: Unremarkable right upper quadrant abdominal ultrasound however the right kidney and pancreas were no t able to be visualized secondary to overlying bowel gas. .Edilson Barclay MD, MD Date Time Electronically viewed and signed by .Edilson Barclay MD, on 06/06/2016 03:45 .M/
[2016-06-06] MEDS ORDERED: PANTOPRAZOLE 40 MG INJ IV ONE (04:00)
[2016-06-06] MEDS ORDERED: HYDROmorphONE 1 MG/ML SYG IV STA (04:19)
[2016-06-06 05:02] LABS: EOSINOPHILS # 0.3 10^3/ul (0.0-0.5); LYMPHOCYTES # 2.9 10^3/ul (0.8-2.9); MONOCYTE # 0.7 10^3/ul (0.3-0.9); NEUTROPHIL # 7.6 10^3/ul (1.6-7.5)
[2016-06-06 05:08] LABS: ALBUMIN 3.8 g/dl (3.3-4.9)
[2016-06-06 05:10] LABS: CREATININE 0.6 mg/dl (0.61-1.24)
[2016-06-06 05:11] LABS: ALBUMIN/GLOBULIN RATIO 1.11; BILIRUBIN,INDIRECT 0.1 mg/dl (0-1.1); BILIRUBIN,TOTAL 0.1 mg/dl (0.2-1.3); CALCIUM 8.6 mg/dl (8.4-10.2); TOTAL PROTEIN 7.2 g/dl (6.1-8.1)
--- NOTE | 2016-06-06 05:13 | RADRPT ---
PROCEDURE: CT Abdomen and Pelvis without contrast. CLINICAL INDICATION: Abdominal pain. TECHNIQUE: Routine axial tomographic images of the abdomen and pelvis were obtained from the domes the diaphragm to the symphysis pubis. The patient was scanned withoutoral or intravenous contrast. Coronal and sagittal reformatted images were obtained from the axial source images. Images were re viewed on a high-resolution PACS workstation. One or more of the following dose reduction techniques were used: Automated exposure control, Adjust ment of the mA and/or kV according to patient size, and/or Use of iterative reconstruction technique . The total exam CTDI equals 15.77 mGy and the total exam DLP equals 934.29 mGy-cm. COMPARISON: CT abdomen and pelvis dated 03/22/2016 FINDINGS: The visualized portions of the lung bases demonstrate bibasilar atelectasis. Evaluation of the in tra-abdominal solid organs is somewhat limited on this noncontrast examination. The liver appears n ormal in size. There is no intra or extrahepatic biliary dilatation. The gallbladder is unremarkab le by CT criteria. The spleen, pancreas, and adrenal glands are unremarkable. The kidneys are symmetric in size. No renal, ureteral, or bladder calculi are identified. No perine phric inflammatory changes are identified. The urinary bladder wall is lobular and thickened. There is a Miranda catheter with tip in the distal urethra. A ventriculoperitoneal shunt catheter terminates in the right lower quadrant. The bowel demonstrate s normal course and caliber. There is no evidence of bowel obstruction. The appendix is normal in appearance. The pelvic organs are grossly unremarkable. No intraperitoneal free fluid, free air, o r abscess is identified. Again noted are prominent inguinal and pelvic sidewall lymph nodes. The aor ta is normal in caliber. The osseous structures demonstrate posterior fusion anomalies from L2 distally. There is marked atr ophy of the paraspinal muscles. The acetabular shallow bilaterally. There is blunting of the right femoral head with cortical destruction along the femoral and acetabular margin of the right hip. T here is osteolysis of the left femoral head and pseudoarticulation of the left lesser trochanter wit h the acetabulum. There is soft tissue thickening posteriorly along the ischial tuberosities bilate rally and at the sacrococcygeal junction. IMPRESSION: 1. Limited noncontrast CT of the abdomen and pelvis. No acute intra-abdominal abnormality identifi ed. 2. Malpositioned Miranda catheter with tip in the distal urethra. 3. Lobular, thickened urinary bladder wall, likely reflecting chronic bladder outlet obstruction. There is no significant distension of the urinary bladder. 4. Spina bifida with sequela of chronic neuromuscular disease. 5. Soft tissue thickening posteriorly at the sacrococcygeal junction and bilateral ischial tuberosi ties. Findings are suggestive of decubitus ulcers, extend to the underlying bony cortex. 6. Ventriculoperitoneal shunt tubing terminates in the right lower quadrant. 7. Prominent inguinal and pelvic sidewall lymph nodes, not significantly changed when compared to t he prior examination. RPTAT: HH .Caity Polk MD, MD Date Time Electronically viewed and signed by .Caity Polk MD, on 06/06/2016 05:12 .G/
[2016-06-06] MEDS ORDERED: ONDA4TAB14 PO (05:22)
[2016-06-06] MEDS ORDERED: IBUP-1542 PO (05:22)
[2016-06-06 07:42] LABS: URINE BLOOD (Dip) POC 1+ (NEGATIVE)
[2016-06-06 08:53] VITALS: BP 123/64; PULSE 72; RESP 18; TEMP 97.9
== END 2016-06-06 18:22 | disposition home or self-care (01) ==
LOC: E/R 02:42
DX: R10.13 Epigastric pain (principal); R33.9 Retention of urine, unspecified; R11.10 Vomiting, unspecified
CPT/HCPCS: 51701; 74176; 76705; 80053; 81003; 83690; 85025; C9113; J1170; J1885; J2405; J7030; 36415; 96374; 96375

== ENCOUNTER 2016-07-19 18:43 | Emergency (ER) | payer OTHER ==
[~2016-07-19] VITALS: Ht 152.4 cm; Wt 63.6 kg
[~2016-07-19 18:43] MED LIST changes: +IBUP-1542 PO; +ONDA4TAB14 PO
[2016-07-19] MEDS ORDERED: SOD CHLORIDE 0.9% 1,000 ML IV STA ×2 (18:51→22:36)
[2016-07-19] MEDS ORDERED: HYDROmorphONE 1 MG/ML SYG IV STA (18:51)
[2016-07-19] MEDS ORDERED: ONDANSETRON 4 MG INJ IV STA (18:51)
[2016-07-19 18:58] VITALS: Ht 152.4 cm; Wt 63.6 kg
[2016-07-19] MEDS ORDERED: DICYCLOMINE 20 MG INJ IM ONE (19:00)
--- NOTE | 2016-07-19 19:31 | ERD ---
ER Documentation Chief Complaint Date/Time DATE: 07/19/16 TIME: 19:30 Chief Complaint abd pain & vomiting,hx spina bifida HPI 25-year-old male history of spina bifida who presents with abdominal pain nausea and vomiting. He describes 24 hours of symptoms. Vomiting is nonbloody nonbilious emesis. He states epigastric and periumbilical abdominal discomfort. The patient has multiple visits to the emergency room for similar symptoms he states this is similar. He has not followed up with a investment strategist. He states normal bowel movement, no fever. He states that IV pain medication works for this pain. He states that he is allergic to morphine. ROS All systems reviewed and are negative except as per history of present illness. Medications Home Meds Active Scripts Cephalexin* (Keflex*) 500 Mg Capsule, 500 MG PO BID for 7 Days, CAP Prov:ESTELITA LITTLE MD 07/19/16 Ondansetron (Ondansetron Odt) 4 Mg Tab.rapdis, 4 MG PO Q6H Y for NAUSEA AND/OR VOMITING, #30 TAB Prov:ESTELITA LITTLE MD 07/19/16 Hydrocodone/Acetaminophen ([place] 10-325 Tablet) 1 Each Tablet, 1 TAB PO Q6H Y for PAIN, #7 TAB Prov:ESTELITA LITTLE MD 07/19/16 Ibuprofen* (Motrin*) 600 Mg Tab, 600 MG PO Q6H Y for PAIN AND OR ELEVATED TEMP, #20 TAB Prov:GIANLUCA ELAM MD 06/06/16 Ondansetron (Ondansetron Odt) 4 Mg Tab.rapdis, 4 MG PO Q6H Y for NAUSEA AND/OR VOMITING, #10 TAB Prov:GIANLUCA ELAM MD 06/06/16 Levofloxacin* (Levofloxacin*) 500 Mg Tablet, 500 MG PO DAILY for 42 Days, TAB Prov:SUSIE GRULLON 03/31/16 Linezolid (Linezolid) 600 Mg Tablet, 600 MG PO BID for 42 Days, TAB Prov:SUSIE GRULLON 03/31/16 Allergies Allergies: Coded Allergies: morphine (Verified Allergy, Mild, 03/23/16) FEVERISH PER PATIENT PMhx/Soc History of Surgery: Yes (back and leg unspecified) Anesthesia Reaction: No 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 Eyes: Pupils equally reactive, EOM intact ENT: Moist mucous membranes Neck: Supple, no lymphadenopathy Respiratory: Lungs clear bilaterally, no distress Cardiovascular: RRR, no murmurs, rubs, or gallops Abdominal: Soft, mild inconsistent epigastric abdominal tenderness without rebound or guarding, no pulsatile mass, negative Bueno sign, no tenderness to McBurney's point : Deferred MSK: No edema, no unilateral swelling, Neurologic: Alert and oriented, normal speech, no focal weakness, no cerebellar signs Skin: No rash Psych: Normal mood Result Diagram: 07/19/16193507/19/161935 Results 24 hrs Laboratory Tests Test 07/19/16 19:36 White Blood Count 15.910^3/ul Red Blood Count 6.7710^6/ul Hemoglobin 14.1g/dl Hematocrit 44.3% Mean Corpuscular Volume 65.4fl Mean Corpuscular Hemoglobin 20.8pg Mean Corpuscular Hemoglobin Concent 31.8g/dl Red Cell Distribution Width 22.5% Platelet Count 60298^3/UL Mean Platelet Volume 10.4fl Neutrophils % 76.9% Lymphocytes % 16.4% Monocytes % 4.0% Eosinophils % 1.9% Basophils % 0.3% Nucleated Red Blood Cells % 0.0/100WBC Neutrophils # 12.210^3/ul Lymphocytes # 2.610^3/ul Monocytes # 0.610^3/ul Eosinophils # 0.310^3/ul Basophils # 0.010^3/ul Nucleated Red Blood Cells # 0.010^3/ul Sodium Level 146mmol/L Potassium Level 4.2mmol/L Chloride Level 110mmol/L Carbon Dioxide Level 25mmol/L Anion Gap 15 Blood Urea Nitrogen 13mg/dl Creatinine 0.56mg/dl Glucose Level 94mg/dl Calcium Level 8.8mg/dl Total Bilirubin 0.0mg/dl Direct Bilirubin 0.00mg/dl Indirect Bilirubin 0.0mg/dl Aspartate Amino Transf (AST/SGOT) 29IU/L Alanine Aminotransferase (ALT/SGPT) 42IU/L Alkaline Phosphatase 205IU/L Total Protein 7.6g/dl Albumin 4.7g/dl Globulin 2.90g/dl Albumin/Globulin Ratio 1.62 Lipase 229U/L Current Medications Medications (Trade) Dose Ordered Sig/Fatoumata Route PRN Reason Start Time Stop Time Status Last Admin Dose Admin Sodium Chloride (NS) 1,000 ml @ 1,000 mls/hr Q1H STAT IV 07/19/16 18:51 07/19/16 19:50 DC 07/19/16 20:39 Hydromorphone HCl (Dilaudid) 1 mg ONCE STAT IV 07/19/16 18:51 07/19/16 18:52 DC 07/19/16 19:42 Ondansetron HCl (Zofran Inj) 4 mg ONCE STAT IV 07/19/16 18:51 07/19/16 18:52 DC 07/19/16 19:42 Dicyclomine HCl 10 mg 10 mg ONCE ONCE IM 07/19/16 19:00 07/19/16 19:01 DC 07/19/16 19:57 Ceftriaxone Sodium (Rocephin) 50 ml @ 100 mls/hr ONCE ONCE IVPB 07/19/16 21:30 07/19/16 21:59 DC 07/19/16 21:23 Acetaminophen/ Hydrocodone Bitart 1 tab 1 tab ONCE ONCE PO 07/19/16 21:30 07/19/16 21:31 DC 07/19/16 21:23 Sodium Chloride (NS) 1,000 ml @ 1,000 mls/hr Q1H STAT IV 07/19/16 22:36 07/19/16 23:35 Lidocaine (Lidocaine 2% Urojet) 20 ml ONCE ONCE MM 07/19/16 23:00 07/19/16 23:01 Procedures/MDM EKG, MONITORS, & DIAGNOSTIC IMAGING: X-ray acute abdominal series: IMPRESSION: 1. Nonobstructive bowel gas pattern. 2. Ventriculoperitoneal shunt as described above without definite evidence for associated upstream 3. 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 4. Deformities of the bilateral iliac wings with osteolysis of the bilateral femoral heads RPTAT: [facility] INTERPRETATION: Mild leukocytosis, urinary tract infection MEDICAL DECISION MAKING: The patient presents with acute on chronic abdominal pain. Broad differential but I do not believe this is consistent with acute intra-abdominal process such as obstruction, acute appendicitis or cholecystitis. The patient has had 2 CAT scans this year for similar symptoms have been negative. Concern for possible drug-seeking behavior given his description of needing IV pain medication. I would like to avoid unnecessary CT imaging therefore acute abdominal series will be ordered. The patient will have basic blood work and be given a single dose of IV Dilaudid. Repeat dosing would not be required in the emergency room. ER COURSE: The patient has mild leukocytosis but does have a UTI. A repeat abdominal exam is benign. The patient continues to ask for IV narcotics. Oral narcotic pain medication was provided. No further IV narcotics necessary. X-ray imaging is unremarkable. No evidence of obstruction. The patient had asked to have his Miranda catheter change. It is been in for prolonged period of time. We are having significant difficulty replacing the Miranda catheter, greater than 5 nurses have tried. Unable to pass the catheter despite use of a 16, 18 and Coude. For this reason urology has been called, Dr. Morales has been kind enough to consult on the case and will come to the emergency room to attempt Miranda catheter placement and if not suprapubic catheter placement. If the patient can have successful Miranda catheter placement the patient can be safely discharged for treatment of UTI. Patient given ceftriaxone here in the emergency room. I kept the patient and/or family informed of laboratory and diagnostic imaging results throughout the emergency room course. DISPOSITION PLAN: We discussed follow up with the patient's primary care doctor within 24 to 48 hours as needed. We also discussed return to the emergency room for worsening symptoms or worsening condition. Outpatient referral: Urology, gastroenterology for chronic abdominal pain Discharge Medications: Madison, Keflex Departure Diagnosis: Primary Impression: Chronic abdominal pain Additional Impressions: UTI (urinary tract infection) Urinary tract infection type: site unspecified Hematuria presence: without hematuria Qualified Code: N39.0 - Urinary tract infection without hematuria, site unspecified Urinary (tract) obstruction Condition: Stable ESTELITA LITTLE MD Jul 19, 2016 19:31
[2016-07-19 19:48] LABS: ADD SCAN DIFF NO
[2016-07-19 19:49] LABS: ABNORMAL IP MESSAGE 1; BASOPHILS % 0.3 % (0.0-2.0); EOSINOPHILS # 0.3 10^3/ul (0.0-0.5); EOSINOPHILS % 1.9 % (0.0-7.0); HEMATOCRIT 44.3 % (42.0-52.0); HEMOGLOBIN 14.1 g/dl (14.0-18.0); LYMPHOCYTES # 2.6 10^3/ul (0.8-2.9); LYMPHOCYTES % 16.4 % (15.0-51.0); MEAN CORPUSCULAR HEMOGLOBIN 20.8 pg (29.0-33.0); MEAN CORPUSCULAR HGB CONC 31.8 g/dl (32.0-37.0); MEAN CORPUSCULAR VOLUME 65.4 fl (82.0-101.0); MEAN PLATELET VOLUME 10.4 fl (7.4-10.4); MONOCYTE # 0.6 10^3/ul (0.3-0.9); NEUTROPHIL # 12.2 10^3/ul (1.6-7.5); NEUTROPHILS % 76.9 % (39.0-77.0); PLATELET COUNT 435 10^3/UL (140-415); RED BLOOD COUNT 6.77 10^6/ul (4.70-6.10); RED CELL DISTRIBUTION WIDTH 22.5 % (11.5-14.5); WHITE BLOOD COUNT 15.9 10^3/ul (4.8-10.8)
[2016-07-19 20:17] LABS: ALBUMIN 4.7 g/dl (3.3-4.9); ALBUMIN/GLOBULIN RATIO 1.62; CALCIUM 8.8 mg/dl (8.4-10.2); CREATININE 0.56 mg/dl (0.61-1.24); POTASSIUM 4.2 mmol/L (3.5-5.1); TOTAL PROTEIN 7.6 g/dl (6.1-8.1)
[2016-07-19] MEDS ORDERED: CEFTRIAXONE 1 GM/50 ML (PMX) 50 ML IVPB ONE (21:30)
[2016-07-19] MEDS ORDERED: HYDROCODONE/APAP (10/325) TAB PO ONE (21:30)
--- NOTE | 2016-07-19 22:29 | RADRPT ---
PROCEDURE: Abdominal series CLINICAL INDICATION: Abdominal pain TECHNIQUE: AP abdomen supine and semi upright abdomen film COMPARISON: CT abdomen pelvis 06/06/2016 FINDINGS: The soft tissues demonstrate a ventricular peritoneal shunt coursing along the right abdomen with th e tip superimposed over the right iliac wing. 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 Deformities of the bilater al iliac wings, and acetabulum and femoral heads are noted. Previous osteolysis of the femoral head s has been observed. There is a nonspecific, nonobstructive bowel gas pattern. No air-fluid levels are seen. No free ai r is evident. No abnormal calcifications project over the renal collecting systems. IMPRESSION: 1. Nonobstructive bowel gas pattern. 2. Ventriculoperitoneal shunt as described above without definite evidence for associated upstream 3. 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 4. Deformities of the bilateral iliac wings with osteolysis of the bilateral femoral heads RPTAT: [facility] .Dana Ba MD, Date Time Electronically viewed and signed by .Dana Ba MD, on 07/19/2016 22:28 .C/
[2016-07-19] MEDS ORDERED: HYDR-902 PO (22:45)
[2016-07-19] MEDS ORDERED: CEPH-443 PO (22:45)
[2016-07-19] MEDS ORDERED: ONDA4TAB14 PO (22:45)
[2016-07-19] MEDS ORDERED: LIDOCAINE 2% 20 ML UROJET SYRINGE MM ONE (23:00)
--- NOTE | 2016-07-20 00:16 | OPR ---
DATE OF OPERATION: 07/19/2016 REASON FOR CONSULTATION: Impassable urethra. HISTORY OF PRESENT ILLNESS: This is a 25-year-old male, who has a chronic indwelling Miranda catheter from neurogenic bladder from meningomyelocele. The patient came in with abdominal pain. The ER ph ysicians felt that his catheter needed to be changed and replaced. The patient states that at times the catheter is difficult to replace. After the catheter was removed, multiple attempts were made to place the catheter, and they were all unsuccessful; therefore, I was called. When I came to see the patient, he was lying in bed in no distress with a smell of urine. 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 I infiltrated his urethra with Xylocaine jelly and then made several attempts with guidewires and filiforms to place into the bladder. All were unsuccessful. He appears to have a false passage and a significant urethral stricture. At this point, I felt that the only option at this time is a suprapubic tube. We did a bladder scan and found him to have abo ut 500 mL in his bladder. The patient adamantly refused to have a suprapubic tube. I told him that he will have a persistent sepsis, and he needs to have drainage of his bladder. Despite this, he r efused, and he will leave, and he said he will go to [facility]. Dictated By: JUDY HARRELL/KATY Conf#: [id number] DID#: [id number]
[2016-07-20 01:23] LABS: ADD UMIC YES; URINE BILIRUBIN (Dip) NEGATIVE (NEGATIVE); URINE BLOOD (Dip) 3+ (NEGATIVE); URINE COLOR LT. YELLOW (YELLOW); URINE GLUCOSE (Dip) NEGATIVE (NEGATIVE); URINE KETONES (Dip) NEGATIVE (NEGATIVE); URINE LEUKOCYTE ESTERASE (Dip) 2+ (NEGATIVE); URINE NITRITE (Dip) NEGATIVE (NEGATIVE); URINE TOTAL PROTEIN (Dip) NEGATIVE (NEGATIVE); URINE UROBILINOGEN (Dip) 0.2 E.U./dL (0.1-1.0)
[2016-07-20 01:43] LABS: BACTERIA,URINE MANY; SQUAMOUS EPITHELIAL CELL,UR OCCASIONAL; URINE RBCS 25-50 /HPF (0)
[2016-07-20 01:49] VITALS: BP 119/88; PULSE 66; RESP 16; TEMP 98.2
[2016-07-21] MEDS ORDERED: HYDR-902 PO (03:59)
== END 2016-07-20 01:59 | disposition home or self-care (01) ==
LOC: E/R 18:43
DX: R10.13 Epigastric pain (principal); R40.2252 Coma scale, best verbal response, oriented, at arrival to emergency department; N39.0 Urinary tract infection, site not specified; R11.2 Nausea with vomiting, unspecified; R40.2142 Coma scale, eyes open, spontaneous, at arrival to emergency department; R40.2362 Coma scale, best motor response, obeys commands, at arrival to emergency department
CPT/HCPCS: 36415; 51702; 74010; 80053; 81001; 83690; 85025; 87086; 96372; 96374; 96375; J0500; J0696; J1170; J2405; J7030; Z7502; Z7610

== ENCOUNTER 2016-07-21 00:02 | Emergency (ER) | payer OTHER ==
[~2016-07-21] VITALS: Ht 152.4 cm; Wt 72.7 kg
[~2016-07-21 00:02] MED LIST changes: +CEPH-443 PO; +HYDR-902 PO
[2016-07-21 00:10] VITALS: Ht 152.4 cm; Wt 72.7 kg
[2016-07-21] MEDS ORDERED: SOD CHLORIDE 0.9% 500 ML IV STA (00:21)
[2016-07-21] MEDS ORDERED: HYDROmorphONE 1 MG/ML SYG IV STA ×2 (00:21→03:42)
[2016-07-21] MEDS ORDERED: ONDANSETRON 4 MG INJ IV STA (00:21)
[2016-07-21 01:15] LABS: ADD SCAN DIFF NO
[2016-07-21 01:36] LABS: ABNORMAL IP MESSAGE 1; BASOPHILS % 0.2 % (0.0-2.0); EOSINOPHILS # 0.2 10^3/ul (0.0-0.5); EOSINOPHILS % 1.5 % (0.0-7.0); HEMATOCRIT 45.1 % (42.0-52.0); HEMOGLOBIN 14.1 g/dl (14.0-18.0); LYMPHOCYTES # 1.8 10^3/ul (0.8-2.9); LYMPHOCYTES % 17.8 % (15.0-51.0); MEAN CORPUSCULAR HEMOGLOBIN 20.6 pg (29.0-33.0); MEAN CORPUSCULAR HGB CONC 31.3 g/dl (32.0-37.0); MEAN CORPUSCULAR VOLUME 65.8 fl (82.0-101.0); MONOCYTE # 0.5 10^3/ul (0.3-0.9); NEUTROPHIL # 7.7 10^3/ul (1.6-7.5); PLATELET COUNT 407 10^3/UL (140-415); RED BLOOD COUNT 6.85 10^6/ul (4.70-6.10); RED CELL DISTRIBUTION WIDTH 22.7 % (11.5-14.5); WHITE BLOOD COUNT 10.3 10^3/ul (4.8-10.8)
[2016-07-21 01:42] LABS: ALBUMIN 4.7 g/dl (3.3-4.9); ALBUMIN/GLOBULIN RATIO 1.46; BILIRUBIN,DIRECT 0.4 mg/dl (0.00-0.20); BILIRUBIN,INDIRECT 0.4 mg/dl (0-1.1); BILIRUBIN,TOTAL 0.8 mg/dl (0.2-1.3); CREATININE 0.58 mg/dl (0.61-1.24); POTASSIUM 3.9 mmol/L (3.5-5.1); TOTAL PROTEIN 7.9 g/dl (6.1-8.1)
[2016-07-21 03:03] LABS: ADD UMIC YES; URINE BILIRUBIN (Dip) 2+ (NEGATIVE); URINE BLOOD (Dip) NEGATIVE (NEGATIVE); URINE COLOR YELLOW (YELLOW); URINE GLUCOSE (Dip) NEGATIVE (NEGATIVE); URINE KETONES (Dip) NEGATIVE (NEGATIVE); URINE LEUKOCYTE ESTERASE (Dip) 1+ (NEGATIVE); URINE NITRITE (Dip) NEGATIVE (NEGATIVE); URINE TOTAL PROTEIN (Dip) TRACE (NEGATIVE); URINE UROBILINOGEN (Dip) 1.0 E.U./dL (0.1-1.0)
[2016-07-21 03:11] LABS: ICTOTEST POSITIVE (NEGATIVE)
[2016-07-21 03:13] LABS: MUCUS,URINE MODERATE; URINE RBCS NONE SEEN /HPF (0)
[2016-07-21 03:14] LABS: SQUAMOUS EPITHELIAL CELL,UR RARE
--- NOTE | 2016-07-21 03:17 | RADRPT ---
PROCEDURE: XR Chest. CLINICAL INDICATION: Abdominal Pain TECHNIQUE: Portable single view of the chest COMPARISON: None. FINDINGS: Top normal heart size. Ventriculoperitoneal shunt tubing overlies the right chest. No acute infilt rate, pleural effusion, or overt congestive heart failure is seen. No bony abnormality is seen. IMPRESSION: No definite acute pulmonary disease. RPTAT: [facility] Physician Chinedu Date Time Electronically viewed and signed by Sahara Duffy Physician on 07/21/2016 03:17 EDUARDO/
--- NOTE | 2016-07-21 03:25 | RADRPT ---
PROCEDURE: CT of the abdomen and pelvis without contrast CLINICAL INDICATION: Abdominal Pain. TECHNIQUE: Spiral CT images through the abdomen and pelvis without the use of contrast. The admin istered radiation dose is CTDI 13.93 and DLP 854.99. One or more of the following dose reduction te chniques were used: automated exposure control, adjustment of the mA and/or kV according to patient size, or use of iterative reconstruction technique. COMPARISON: 06/06/2016 FINDINGS: Lack of oral and intravenous contrast somewhat limits evaluation. Slight dependent atelectasis of the lung bases is seen. No pleural effusion is seen. Ventriculoperitoneal shunt tubing extends fro m the right anterior abdominal subcutaneous tissues into the right abdomen and is coiled in the lowe r mid right abdomen. Tiny probable hepatic cyst is again seen. The gallbladder is slightly distended and there may be de pendent sludge or tiny layering stones. No gross abnormality of the spleen, adrenals, kidneys, or p ancreas is seen.. . There is no evidence for bowel obstruction, free air, or abscess. The appendi x is normal in appearance. anastomotic suture line of the sigmoid colon is seen. There is not a ma rkedly large stool burden. Surgical defect from presumed prior old right abdominal ostomy is seen. Miranda catheter is seen in the urinary bladder which is lobulated in contour and thick-walled as see n previously. Again seen are changes of spina bifida with pelvic skeletal deformities and bilateral decubitus ulcers with what appears to be chronic osteomyelitis of both ischial tuberosities and poss ibly both hips with marked deformity of both hips, chronic and without marked interval change. Enla rged pelvic and inguinal lymph nodes are again seen. Severe muscular atrophy of the hip girdle musculature is again seen. There is mild degenerative change of the spine. IMPRESSION: Slight distended gallbladder with possible small stones or sludge. Ultrasound correlation may be ob tained if indicated. Extensive chronic changes related to spina bifida. Probable chronic cystitis and bilateral decubitu s ulcers with severe deformity of both hips and probable chronic osteomyelitis at least involving th e ischial tuberosities. Ventriculoperitoneal shunt.. RPTAT: [facility] Sahara Duffy, Physician Date Time Electronically viewed and signed by Sahara Duffy, Physician on 07/21/2016 03:24 LE/
--- NOTE | 2016-07-21 03:58 | ERD ---
ER Documentation Chief Complaint Date/Time DATE: 07/21/16 TIME: 03:58 Chief Complaint BIBA RA c/o abd pain, hx spina bifida HPI This is a 25-year-old male comes in complaining of abdominal pain. This is chronic in nature. Patient has history of spina bifida. Patient has been a 3 times and last week. No fevers no chills. Pain is mild to moderate intensity, nonlocalizing,. Mild nausea. No vomiting. No other current complaints. ROS All systems reviewed and are negative except as per history of present illness. Medications Home Meds Active Scripts Cephalexin* (Keflex*) 500 Mg Capsule, 500 MG PO BID for 7 Days, CAP Prov:ESTELITA LITTLE MD 07/19/16 Ondansetron (Ondansetron Odt) 4 Mg Tab.rapdis, 4 MG PO Q6H Y for NAUSEA AND/OR VOMITING, #30 TAB Prov:ESTELITA LITTLE MD 07/19/16 Hydrocodone/Acetaminophen ([place] 10-325 Tablet) 1 Each Tablet, 1 TAB PO Q6H Y for PAIN, #7 TAB Prov:ESTELITA LITTLE MD 07/19/16 Ibuprofen* (Motrin*) 600 Mg Tab, 600 MG PO Q6H Y for PAIN AND OR ELEVATED TEMP, #20 TAB Prov:GIANLUCA ELAM MD 06/06/16 Ondansetron (Ondansetron Odt) 4 Mg Tab.rapdis, 4 MG PO Q6H Y for NAUSEA AND/OR VOMITING, #10 TAB Prov:GIANLUCA ELAM MD 06/06/16 Levofloxacin* (Levofloxacin*) 500 Mg Tablet, 500 MG PO DAILY for 42 Days, TAB Prov:SUSIE GRULLON 03/31/16 Linezolid (Linezolid) 600 Mg Tablet, 600 MG PO BID for 42 Days, TAB Prov:SUSIE GRULLON 03/31/16 Allergies Allergies: Coded Allergies: morphine (Verified Allergy, Mild, 03/23/16) FEVERISH PER PATIENT PMhx/Soc History of Surgery: Yes (back and leg unspecified) Anesthesia Reaction: No 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 Neck: Full range of motion..~ No meningismus. Resp: Clear to auscultation bilaterally Cardio: Regular rate and rhythm, no murmurs Abd: Soft, non tender, non distended. Normal bowel sounds Skin: No petechiae or rashes Back: No midline or flank tenderness Ext: No cyanosis, or edema Neur: Awake and alert Psych: Normal Mood and Affect Result Diagram: 07/21/16 0100 07/21/16 0100 Results 24 hrs Laboratory Tests Test 07/21/16 01:00 White Blood Count 10.310^3/ul Red Blood Count 6.8510^6/ul Hemoglobin 14.1g/dl Hematocrit 45.1% Mean Corpuscular Volume 65.8fl Mean Corpuscular Hemoglobin 20.6pg Mean Corpuscular Hemoglobin Concent 31.3g/dl Red Cell Distribution Width 22.7% Platelet Count 76075^3/UL Mean Platelet Volume fl Neutrophils % 75.0% Lymphocytes % 17.8% Monocytes % 5.0% Eosinophils % 1.5% Basophils % 0.2% Nucleated Red Blood Cells % 0.0/100WBC Neutrophils # 7.710^3/ul Lymphocytes # 1.810^3/ul Monocytes # 0.510^3/ul Eosinophils # 0.210^3/ul Basophils # 0.010^3/ul Nucleated Red Blood Cells # 0.010^3/ul Urine Color YELLOW Urine Clarity CLEAR Urine pH 8.0 Urine Specific [place] 1.010 Urine Ketones NEGATIVE Urine Nitrite NEGATIVE Urine Bilirubin 2+ Urine Ictotest POSITIVE Urine Urobilinogen 1.0 E.U./dL Urine Leukocyte Esterase 1+ Urine Microscopic RBC NONE SEEN/HPF Urine Microscopic WBC 5-10/HPF Urine Squamous Epithelial Cells RARE Urine Mucus MODERATE Urine Hemoglobin NEGATIVE Urine Glucose NEGATIVE% Urine Total Protein TRACE Sodium Level 147mmol/L Potassium Level 3.9mmol/L Chloride Level 107mmol/L Carbon Dioxide Level 27mmol/L Anion Gap 17 Blood Urea Nitrogen 9mg/dl Creatinine 0.58mg/dl Glucose Level 88mg/dl Calcium Level 9.0mg/dl Total Bilirubin 0.8mg/dl Direct Bilirubin 0.40mg/dl Indirect Bilirubin 0.4mg/dl Aspartate Amino Transf (AST/SGOT) 114IU/L Alanine Aminotransferase (ALT/SGPT) 107IU/L Alkaline Phosphatase 242IU/L Total Protein 7.9g/dl Albumin 4.7g/dl Globulin 3.20g/dl Albumin/Globulin Ratio 1.46 Lipase 284U/L Current Medications Medications (Trade) Dose Ordered Sig/Fatoumata Route PRN Reason Start Time Stop Time Status Last Admin Dose Admin Sodium Chloride (NS) 500 ml @ 500 mls/hr Q1H STAT IV 07/21/16 00:21 07/21/16 01:20 DC 07/21/16 01:03 Hydromorphone HCl (Dilaudid) 1 mg ONCE STAT IV 07/21/16 00:21 07/21/16 00:23 DC 07/21/16 01:02 Ondansetron HCl (Zofran Inj) 4 mg ONCE STAT IV 07/21/16 00:21 07/21/16 00:23 DC 07/21/16 01:02 Hydromorphone HCl (Dilaudid) 1 mg ONCE STAT IV 07/21/16 03:42 07/21/16 03:43 DC 07/21/16 03:51 Procedures/MDM Chest X-ray 1V Interpreted by me: Soft Tissue: No acute abnormalities Bones: No acute abnormalities Mediastinum/Cardiac Silhouette/Lungs: [No acute abnormalities] Medical decision-makin-year-old male who has essentially acute on chronic abdominal pain. At this point is clinically stable. He will be discharged home. Departure Diagnosis: Primary Impression: Abdominal pain Abdominal location: generalized Qualified Code: R10.84 - Generalized abdominal pain Condition: Stable RAJAN VALLECILLO Jul 21, 2016 03:58
[2016-07-21] MEDS ORDERED: HYDR-902 PO (03:59)
[2016-07-21 07:52] VITALS: BP 116/78; PULSE 81; RESP 20; TEMP 98.3
== END 2016-07-21 07:54 | disposition home or self-care (01) ==
LOC: E/R 00:02
DX: R10.84 Generalized abdominal pain (principal); R11.0 Nausea
CPT/HCPCS: 36415; 71010; 74176; 80053; 81001; 83690; 85025; 96374; 96375; 96376; J1170; J2405; J7040; Z7502

== ENCOUNTER 2016-08-26 19:14 | Emergency (ER) | END 2016-08-27 00:23 | disposition home or self-care (01) | DX: K80.50 Calculus of bile duct without cholangitis or cholecystitis without obstruction (principal); N39.0 Urinary tract infection, site not specified; R11.10 Vomiting, unspecified | CPT/HCPCS: 36415; 74000; 74176; 80053; 81001; 83690; 85025; 96374; 96375; J0692; J1170; J1885; J2405; J3010; J7030; Z7502; Z7610 ==

== ENCOUNTER 2016-08-28 04:15 | Inpatient (IN) | payer OTHER ==
[~2016-08-28] VITALS: Wt 65.0 kg
[~2016-08-28 04:15] MED LIST changes: -CEPH-443 PO; +CIPR500T4 PO; -HYDR-902 PO; +HYDR-906 PO; -IBUP-1542 PO; -LEVO500T10 PO; -LINE600T6 PO; +NAPR-260 PO; +ONDA4TAB11 PO; -ONDA4TAB14 PO
[2016-08-28] MEDS ORDERED: SOD CHLORIDE 0.9% 1,000 ML IV STA (04:35)
[2016-08-28] MEDS ORDERED: ONDANSETRON 4 MG INJ IV STA (04:35)
[2016-08-28] MEDS ORDERED: FENTAnyl 50 MCG/ML VIAL IV ONE (05:00)
[2016-08-28 05:13] LABS: ADD SCAN DIFF NO
[2016-08-28 05:15] LABS: ABNORMAL IP MESSAGE 1; BASOPHILS % 0.4 % (0.0-2.0); EOSINOPHILS # 0.3 10^3/ul (0.0-0.5); EOSINOPHILS % 2.4 % (0.0-7.0); HEMATOCRIT 47.3 % (42.0-52.0); HEMOGLOBIN 14.6 g/dl (14.0-18.0); LYMPHOCYTES # 2.5 10^3/ul (0.8-2.9); LYMPHOCYTES % 22.2 % (15.0-51.0); MEAN CORPUSCULAR HEMOGLOBIN 21.4 pg (29.0-33.0); MEAN CORPUSCULAR HGB CONC 30.9 g/dl (32.0-37.0); MEAN CORPUSCULAR VOLUME 69.5 fl (82.0-101.0); MONOCYTE # 0.6 10^3/ul (0.3-0.9); MONOCYTES % 4.9 % (0.0-11.0); NEUTROPHILS % 69.7 % (39.0-77.0); PLATELET COUNT 301 10^3/UL (140-415); RED BLOOD COUNT 6.81 10^6/ul (4.70-6.10); RED CELL DISTRIBUTION WIDTH 24.7 % (11.5-14.5); WHITE BLOOD COUNT 11.4 10^3/ul (4.8-10.8)
--- NOTE | 2016-08-28 05:30 | RADRPT ---
PROCEDURE: US Abdomen (right upper quadrant). CLINICAL INDICATION: Abdominal pain. TECHNIQUE: Multiple real-time longitudinal and transverse images of the right upper quadrant of th e abdomen were acquired utilizing a curved array transducer. Images were reviewed on a high-resoluti on PACS workstation. COMPARISON: CT abdomen and pelvis dated 08/26/2016 FINDINGS: The liver is normal in size and demonstrates increased echogenicity. No focal intrahepatic mass is identified. The gallbladder contains sludge and stones. There is no pericholecystic fluid or gallb ladder wall thickening. No intra or extrahepatic biliary dilatation is seen. The common bile duct m easures 4.7 mm in maximal dimension. The portal and hepatic veins are patent demonstrating normal di rectional flow. The visualized portions of the pancreas are unremarkable with obscuration of the regina l of the pancreas. No free fluid is identified. The right kidney measures 10.8 cm in length. There is normal echogenicity within the right kidney. There is no perinephric fluid collection. No hydronephrosis, mass, or calculus is seen. IMPRESSION: 1. Cholelithiasis. 2. Hepatic steatosis. RPTAT: [facility] .Caity Polk MD, Date Time Electronically viewed and signed by .Caity Polk MD, on 08/28/2016 05:29 .G/
[2016-08-28 05:32] LABS: ALBUMIN 3.7 g/dl (3.3-4.9); ALBUMIN/GLOBULIN RATIO 1.48; BILIRUBIN,INDIRECT 0.1 mg/dl (0-1.1); BILIRUBIN,TOTAL 0.1 mg/dl (0.2-1.3); CALCIUM 7.7 mg/dl (8.4-10.2); CREATININE 0.51 mg/dl (0.61-1.24); POTASSIUM 3.6 mmol/L (3.5-5.1); TOTAL PROTEIN 6.2 g/dl (6.1-8.1)
[2016-08-28 06:18] LABS: ADD UMIC YES; UR ASCORBIC ACID NEGATIVE (NEGATIVE); UR BACTERIA FEW /HPF (NONE SEEN); UR BILIRUBIN (Dip) NEGATIVE (NEGATIVE); UR BLOOD (Dip) NEGATIVE (NEGATIVE); UR CLARITY SLIGHTLY CLOUDY (CLEAR); UR COLOR YELLOW (YELLOW); UR GLUCOSE (Dip) NEGATIVE (NEGATIVE); UR KETONES (Dip) 2+ mg/dL (NEGATIVE); UR LEUKOCYTE ESTERASE (Dip) TRACE Leu/ul (NEGATIVE); UR NITRITE (Dip) NEGATIVE (NEGATIVE); UR RBC 1 /HPF (0-5); UR SPECIFIC GRAVITY (Dip) 1.009 (1.003-1.030); UR TOTAL PROTEIN (Dip) NEGATIVE (NEGATIVE); UR UROBILINOGEN (Dip) 2+ mg/dL (NEGATIVE)
[2016-08-28] MEDS ORDERED: ONDANSETRON 4 MG INJ IV PRN ×2 (06:30→09:00)
[2016-08-28] MEDS ORDERED: ACETAMINOPHEN 325 MG TAB PO PRN ×2 (06:30→09:00)
[2016-08-28 06:32] VITALS: TEMP 98
--- NOTE | 2016-08-28 06:46 | ERA ---
ER Documentation Chief Complaint Date/Time DATE: 08/28/16 TIME: 06:37 Chief Complaint abdominal pain x 2 days HPI This 25-year-old male presents for upper abdominal pain is been going on for 2 days. I saw the patient yesterday for the same in which she had gallstone with no obstruction and no elevated white blood cell count with a urinary tract infection. Returns today with the same pain and states that he wants Dilaudid for the pain. Says that he has nausea denies vomiting. No fever or chills ROS All systems reviewed and are negative except as per history of present illness. Medications Home Meds Active Scripts Ciprofloxacin Hcl* (Ciprofloxacin Hcl*) 500 Mg Tablet, 500 MG PO BID for 7 Days , TAB Prov:ANUPAMA ODONNELL DO 08/26/16 Ondansetron (Zofran Odt) 4 Mg Tab.rapdis, 4 MG PO Q6, #10 Prov:ANUPAMA ODONNELL DO 08/26/16 Naproxen* (Naprosyn*) 500 Mg Tablet, 500 MG PO BID Y for PAIN AND/OR INFLAMMATION, #30 TAB Prov:ANUPAMA ODONNELL DO 08/26/16 Hydrocodone/Acetaminophen ([place] 5-325 Tablet) 1 Each Tablet, 1 EACH PO Q6, #20 TAB Prov:ANUPAMA ODONNELL DO 08/26/16 Discontinued Scripts Hydrocodone/Acetaminophen ([place] 10-325 Tablet) 1 Each Tablet, 1 TAB PO Q6H, # 20 TAB Prov:RAJAN VALLECILLO 07/21/16 Cephalexin* (Keflex*) 500 Mg Capsule, 500 MG PO BID for 7 Days, CAP Prov:ESTELITA LITTLE MD 07/19/16 Ondansetron (Ondansetron Odt) 4 Mg Tab.rapdis, 4 MG PO Q6H Y for NAUSEA AND/OR VOMITING, #30 TAB Prov:ESTELITA LITTLE MD 07/19/16 Hydrocodone/Acetaminophen ([place] 10-325 Tablet) 1 Each Tablet, 1 TAB PO Q6H Y for PAIN, #7 TAB Prov:ESTELITA LITTLE MD 07/19/16 Ibuprofen* (Motrin*) 600 Mg Tab, 600 MG PO Q6H Y for PAIN AND OR ELEVATED TEMP, #20 TAB Prov:GIANLUCA ELAM MD 06/06/16 Ondansetron (Ondansetron Odt) 4 Mg Tab.rapdis, 4 MG PO Q6H Y for NAUSEA AND/OR VOMITING, #10 TAB Prov:GIANLUCA ELAM MD 06/06/16 Levofloxacin* (Levofloxacin*) 500 Mg Tablet, 500 MG PO DAILY for 42 Days, TAB Prov:SUSIE GRULLON 03/31/16 Linezolid (Linezolid) 600 Mg Tablet, 600 MG PO BID for 42 Days, TAB Prov:SUSIE GRULLON 03/31/16 Allergies Allergies: Coded Allergies: morphine (Verified Allergy, Mild, 08/26/16) FEVERISH PER PATIENT PMhx/Soc History of Surgery: Yes (back and leg unspecified) Anesthesia Reaction: No Hx Neurological Disorder: Yes (LE PARALYSIS DUE TO SPINA BIFIDA) Hx Respiratory Disorders: No Hx Cardiac Disorders: No Hx Psychiatric Problems: No Hx Miscellaneous Medical Probl: No Hx Alcohol Use: No Hx Substance Use: No Hx Tobacco Use: No Smoking Status: Never smoker Physical Exam Vitals Vital Signs Date Time Temp Pulse Resp B/P Pulse Ox O2 Delivery O2 Flow Rate FiO2 08/28/16 06:32 98.0 72 14 108/82 97 Room Air 08/28/16 04:33 97.9 68 12 133/84 96 Physical Exam Const: [] Mild distress, Head: Atraumatic Eyes: Normal Conjunctiva ENT: Normal External Ears, Nose and Mouth. Neck: Full range of motion..~ No meningismus. Resp: Clear to auscultation bilaterally Cardio: Regular rate and rhythm, no murmurs Abd: Soft, mild abdominal pain across entire after abdomen with inconsistent exam and pain that disappears on distraction, no guarding or rebound, non distended. Normal bowel sounds Skin: No petechiae or rashes Back: No midline or flank tenderness Ext: No cyanosis, or edema Neur: Awake and alert and oriented 3, no focal deficits Psych: Normal Mood and Affect Result Diagram: 08/28/16 0454 08/28/16 0454 Results 24 hrs Laboratory Tests Test 08/28/16 04:54 08/28/16 05:44 White Blood Count 11.410^3/ul Red Blood Count 6.8110^6/ul Hemoglobin 14.6g/dl Hematocrit 47.3% Mean Corpuscular Volume 69.5fl Mean Corpuscular Hemoglobin 21.4pg Mean Corpuscular Hemoglobin Concent 30.9g/dl Red Cell Distribution Width 24.7% Platelet Count 35208^3/UL Mean Platelet Volume fl Neutrophils % 69.7% Lymphocytes % 22.2% Monocytes % 4.9% Eosinophils % 2.4% Basophils % 0.4% Nucleated Red Blood Cells % 0.0/100WBC Neutrophils # 8.010^3/ul Lymphocytes # 2.510^3/ul Monocytes # 0.610^3/ul Eosinophils # 0.310^3/ul Basophils # 0.010^3/ul Nucleated Red Blood Cells # 0.010^3/ul Sodium Level 137mmol/L Potassium Level 3.6mmol/L Chloride Level 109mmol/L Carbon Dioxide Level 22mmol/L Anion Gap 10 Blood Urea Nitrogen 10mg/dl Creatinine 0.51mg/dl Glucose Level 83mg/dl Calcium Level 7.7mg/dl Total Bilirubin 0.1mg/dl Direct Bilirubin 0.00mg/dl Indirect Bilirubin 0.1mg/dl Aspartate Amino Transf (AST/SGOT) 237IU/L Alanine Aminotransferase (ALT/SGPT) 179IU/L Alkaline Phosphatase 178IU/L Total Protein 6.2g/dl Albumin 3.7g/dl Globulin 2.50g/dl Albumin/Globulin Ratio 1.48 Lipase 273U/L Urine Color YELLOW Urine Clarity SLIGHTLY CLOUDY Urine pH 8.0 Urine Specific [place] 1.009 Urine Ketones 2+mg/dL Urine Nitrite NEGATIVEmg/dL Urine Bilirubin NEGATIVEmg/dL Urine Urobilinogen 2+mg/dL Urine Leukocyte Esterase TRACELeu/ul Urine Microscopic RBC 1/HPF Urine Microscopic WBC 3/HPF Urine Bacteria FEW/HPF Urine Hemoglobin NEGATIVEmg/dL Urine Glucose NEGATIVEmg/dL Urine Total Protein NEGATIVEmg/dl Current Medications Medications (Trade) Dose Ordered Sig/Fatoumata Route PRN Reason Start Time Stop Time Status Last Admin Dose Admin Sodium Chloride (NS) 1,000 ml @ 1,000 mls/hr Q1H STAT IV 08/28/16 04:35 08/28/16 05:34 DC 08/28/16 04:44 Ondansetron HCl (Zofran Inj) 4 mg ONCE STAT IV 08/28/16 04:35 08/28/16 04:37 DC 08/28/16 04:44 Fentanyl (Sublimaze) 50 mcg ONCE ONCE IV 08/28/16 05:00 08/28/16 05:01 DC 08/28/16 04:44 Ondansetron HCl (Zofran Inj) 4 mg BRIDGE ORDER PRN IV NAUSEA AND/OR VOMITING 08/28/16 06:30 08/29/16 06:29 Acetaminophen (Tylenol Tab) 650 mg ER BRIDGE PRN PO MILD PAIN/FEVER 08/28/16 06:30 08/29/16 06:29 Procedures/MDM Unfortunate young male has abdominal pain without obvious cause. Does have a fatty liver and gallstones. Liver enzymes are elevated from yesterday. Again he has no signs of biliary obstruction. However does continue to have pain which may be secondary to biliary colic. Also be secondary to his fatty liver. He does exhibit signs of drug-seeking behavior on each visit. He does scream obscenities and pound on the wall. He does have an inconsistent exam which tenderness is present on exam with hands disappears when I is the same motion with the stethoscope while talking to the patient. Also repeatedly demands Dilaudid both today and yesterday. His white count is improved since yesterday. 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 He was given Zofran which resolved his nausea as well as fentanyl 50 mcg and Toradol. Spoke with Dr. Chinchilla is admitting the patient to the medical surgical floor for further evaluation CT abdomen pelvis interpretation: Gallstones without any signs of biliary obstruction, no pericystic colic fluid, no intestinal obstruction, no free air, no fractures per Departure Diagnosis: Primary Impression: Abdominal pain Additional Impressions: Elevated liver enzymes Hepatic steatosis Biliary colic Condition: Stable ANUPAMA ODONNELL DO Aug 28, 2016 06:46
[2016-08-28] MEDS ORDERED: KETOROLAC 30 MG INJ IV STA (06:47)
[2016-08-28] MEDS ORDERED: HYDROCODONE/APAP (10/325) TAB PO ONE (07:00)
--- NOTE | 2016-08-28 08:58 | HP ---
Date/Time of Note Date/Time of Note DATE: 08/28/16 TIME: 08:58 Assessment/Plan VTE Prophylaxis VTE Prophylaxis Intervention: SCD's Assessment/Plan Assessment/Plan 25 yo M with pmhx spina bifida with resultant paraplegia and chronic urinary retention presents with abd pain. Imaging consistent and labs consistent with biliary colic. Given this is pt's second encounter for this matter in 48 hours and sixth in 6 weeks, pt may benefit from cholecystectomy PLAN NSAIDs PRN, PO norco PRN gen surg eval cont other home meds HPI/ROS Admit Date/Time Admit Date/Time Aug 28, 2016 at 06:21 Hx of Present Illness 25 yo M with pmhx spina bifida presents with complaint of abd pain. Of note, pt had presented 48 hours prior for same. At time of my attempted evaluation, pt sleeping quite soundly and I was not able to obtain much useful information from clinical interview. unable to obtain ROS from pt 2/2 sleepiness PMHx as above Home meds as per EMR Soc Hx: lives in the community PMH/Family/Social Social History Smoking Status: Never smoker Exam/Review of Systems Vital Signs Vitals Vital Signs Date Time Temp Pulse Resp B/P Pulse Ox O2 Delivery O2 Flow Rate FiO2 08/28/16 06:32 98.0 72 14 108/82 97 Room Air Exam Exam nad, laying on R side MMM no thyromegaly resp nonlabored no gross abd distension no rashes no le edema labs/imaging reviewed Labs Result Diagram: 08/28/16 0454 08/28/16 0454 ROGERIO MOE MD Aug 28, 2016 08:58
[2016-08-28 09:00] VITALS: BP 122/82; PULSE 72; RESP 20
[2016-08-28] MEDS ORDERED: DOCUSATE SODIUM 100 MG CAP PO PRN (09:00)
[2016-08-28] MEDS ORDERED: MAGNESIUM HYDROXIDE 30ML CUP PO PRN (09:00)
[2016-08-28] MEDS ORDERED: NACL 0.9% 3 ML SYG IV SCH (09:00)
[2016-08-28] MEDS ORDERED: ONDANSETRON 4 MG TAB PO PRN (09:00)
[2016-08-28] MEDS ORDERED: METOCLOPRAMIDE 10 MG INJ IV PRN (09:00)
[2016-08-28] MEDS ORDERED: IBUPROFEN 600 MG TAB PO PRN (09:00)
[2016-08-28] MEDS ORDERED: ONDANSETRON (ODT) 4 MG TAB ODT PRN (09:00)
[2016-08-28] MEDS ORDERED: HYDROCODONE/APAP (5/325) TAB PO PRN (09:00)
[2016-08-28] MEDS: ENOXAPARIN 40 MG/0.4 ML SYG SC SCH (09:52)
[2016-08-28] MEDS: SOD CHLORIDE 0.9% 1,000 ML IV SCH ×3 (13:38→23:02)
[2016-08-28] MEDS: KETOROLAC 30 MG INJ IV PRN ×2 (13:51→20:32)
[2016-08-28 14:03] LABS: BARBITURATES Negative (NEGATIVE); BENZODIAZEPINES Negative (NEGATIVE); CANNABINOIDS Positive (NEGATIVE); COCAINE Negative (NEGATIVE); OPIATES Positive (NEGATIVE)
[2016-08-28 19:30] VITALS: BP 109/62; RESP 18
--- NOTE | 2016-08-28 19:33 | CONS ---
Date/Time of Note Date/Time of Note DATE: 08/28/16 TIME: 19:28 Assessment/Plan Assessment/Plan Chief Complaint/Hosp Course 25-year-old male with upper abdominal pain and gallstones * Seems to have resolved * Recommend advancing diet as tolerated * Pain control if needed with non-narcotics * In the absence of evidence of acute cholecystitis there is no indication for acute surgical intervention at this time The above was discussed with the patient in detail. Further recommendations will be made based on patient's clinical course. Problems: Consultation Date/Type/Reason Admit Date/Time Aug 28, 2016 at 06:21 Date of Consultation: Aug 28, 2016 Type of Consultation: GENERAL SURGERY Reason for Consultation Abdominal pain Hx of Present Illness Patient is a 25-year-old male with a history of spina bifida and lower extremity weakness with chronic Miranda catheter who presented to the emergency room complaining of a 2 day history of abdominal pain. He describes the pain as being located in the upper abdomen radiating from the epigastrium to the left upper quadrant and right upper quadrants. He denies any nausea/vomiting, diarrhea/constipation or fever/chills. On arrival to the emergency room he was found to have mildly elevated transaminases in the setting of normal bilirubin. An ultrasound which was done showed the presence of gallstones without evidence of acute cholecystitis. Of note he was found by the emergency room physician and the primary admitting team to have pain out of proportion to his exam without any significant findings on distraction. Currently he denies any abdominal pain. On my arrival he was sleeping comfortably in his bed. 14 point review of systems was conducted and was negative except for that which is mentioned in HPI Past Medical History As in HPI Past Surgical History Expiratory laparotomy for bowel obstruction, [employer] shunts Social History Smoking Status: Never smoker Drug Use: marijuana Exam/Review of Systems Vital Signs Vitals Vital Signs Date Time Temp Pulse Resp B/P Pulse Ox O2 Delivery O2 Flow Rate FiO2 08/28/16 09:00 98.1 72 20 122/82 96 Room Air Exam GENERAL: Awake, alert, oriented x 3. No acute distress. SKIN: No jaundice. HEENT: PERRLA, EOMI, No Scleral Icterus NECK: Supple without JVD CARDIOVASCULAR: S1S2, regular rate and rhythm. No murmurs appreciated. RESPIRATORY: Clear to auscultation bilaterally. ABDOMEN: Soft, bowel sounds present, nondistended, nontender to palpation. Healed abdominal incisions from prior surgery EXTREMITIES: Lower extremity weakness Results Result Diagram: 08/28/16 0454 08/28/16 0454 Results 24 hrs Laboratory Tests Test 08/28/16 04:54 08/28/16 05:44 08/28/16 12:30 08/28/16 13:26 White Blood Count 11.4 #H Red Blood Count 6.81 H Hemoglobin 14.6 Hematocrit 47.3 Mean Corpuscular Volume 69.5 L Mean Corpuscular Hemoglobin 21.4 L Mean Corpuscular Hemoglobin Concent 30.9 L Red Cell Distribution Width 24.7 H Platelet Count 301 Mean Platelet Volume Neutrophils % 69.7 Lymphocytes % 22.2 Monocytes % 4.9 Eosinophils % 2.4 Basophils % 0.4 Nucleated Red Blood Cells % 0.0 Neutrophils # 8.0 H Lymphocytes # 2.5 Monocytes # 0.6 Eosinophils # 0.3 Basophils # 0.0 Nucleated Red Blood Cells # 0.0 Sodium Level 137 Potassium Level 3.6 Chloride Level 109 Carbon Dioxide Level 22 Anion Gap 10 Blood Urea Nitrogen 10 Creatinine 0.51 L Glucose Level 83 Calcium Level 7.7 L Total Bilirubin 0.1 L Direct Bilirubin 0.00 Indirect Bilirubin 0.1 Aspartate Amino Transf (AST/SGOT) 237 #H Alanine Aminotransferase (ALT/SGPT) 179 H Alkaline Phosphatase 178 H Total Protein 6.2 # Albumin 3.7 # Globulin 2.50 Albumin/Globulin Ratio 1.48 Lipase 273 Urine Color YELLOW Urine Clarity SLIGHTLY CLOUDY A Urine pH 8.0 Urine Specific [place] 1.009 Urine Ketones 2+ H Urine Nitrite NEGATIVE Urine Bilirubin NEGATIVE Urine Urobilinogen 2+ H Urine Leukocyte Esterase TRACE A Urine Microscopic RBC 1 Urine Microscopic WBC 3 Urine Bacteria FEW A Urine Hemoglobin NEGATIVE Urine Glucose NEGATIVE Urine Total Protein NEGATIVE Urine Opiates Screen Positive Urine Barbiturates Negative Urine Amphetamines Screen Negative Urine Benzodiazepines Screen Negative Urine Cocaine Screen Negative Urine Cannabinoids Positive Ethyl Alcohol Level < 10.0 Medications Medications Current Medications Ondansetron HCl (Zofran Tab) 4 mg Q6H PRN PO NAUSEA AND/OR VOMITING; Start at 09:00 Ondansetron HCl (Zofran Inj) 4 mg Q6H PRN IV NAUSEA AND/OR VOMITING; Start at 09:00 Metoclopramide HCl (Reglan) 10 mg Q6H PRN IV NAUSEA AND/OR VOMITING; Start at 09:00 Acetaminophen (Tylenol Tab) 650 mg Q6H PRN PO PAIN LEVEL 1-3 OR FEVER; Start at 09:00 Ibuprofen (Motrin) 600 mg Q6H PRN PO PAIN LEVEL 1-3; Start 08/28/16 at 09:00 Docusate Sodium (Colace) 100 mg Q12H PRN PO CONSTIPATION; Start 08/28/16 at 09: 00 Magnesium Hydroxide (Milk Of Mag) 30 ml DAILY PRN PO CONSTIPATION; Start at 09:00 Enoxaparin Sodium (Lovenox) 40 mg DAILY SC Last administered on 08/28/16 09:52 ; Admin Dose 40 MG; Start 08/28/16 at 09:00 Ketorolac Tromethamine (Toradol) 30 mg Q6H PRN IV PAIN Last administered on 13:51; Admin Dose 30 MG; Start 08/28/16 at 09:00; Stop 08/31/16 at 08:59 Ondansetron HCl 4 mg 4 mg Q6H PRN ODT nausea; Start 08/28/16 at 09:00 Sodium Chloride (NS) 1,000 ml @ 100 mls/hr Q10H IV Last administered on 13:38; Admin Dose 100 MLS/HR; Start 08/28/16 at 12:30 Procedures Procedures PROCEDURE: US Abdomen (right upper quadrant). CLINICAL INDICATION: Abdominal pain. TECHNIQUE: Multiple real-time longitudinal and transverse images of the right upper quadrant of the abdomen were acquired utilizing a curved array transducer. Images were reviewed on a high-resolution PACS workstation. COMPARISON: CT abdomen and pelvis dated 08/26/2016 FINDINGS: The liver is normal in size and demonstrates increased echogenicity. No focal intrahepatic mass is identified. The gallbladder contains sludge and stones. There is no pericholecystic fluid or gallbladder wall thickening. No intra or extrahepatic biliary dilatation is seen. The common bile duct measures 4.7 mm in maximal dimension. The portal and hepatic veins are patent demonstrating normal directional flow. The visualized portions of the pancreas are unremarkable with obscuration of the tail of the pancreas. No free fluid is identified. The right kidney measures 10.8 cm in length. There is normal echogenicity within the right kidney. There is no perinephric fluid collection. No hydronephrosis, mass, or calculus is seen. IMPRESSION: 1. Cholelithiasis. 2. Hepatic steatosis. RPTAT: HH .Caity Polk MD, MD Date Time Electronically viewed and signed by .Caity Polk MD, MD on 08/28/2016 05 :29 .G/ CC: ANUPAMA ODONNELL MICHAEL A. MD Aug 28, 2016 19:33
[2016-08-29] MEDS: KETOROLAC 30 MG INJ IV PRN ×2 (02:35→11:51)
--- NOTE | 2016-08-29 08:41 | PDOCDIS ---
Discharge Instructions CONDITION Patient Condition: Stable FOLLOW UP/APPOINTMENTS Follow-up Plan Follow up with your regular doctor this week to talk about your abdominal pain ROGERIO MOE MD Aug 29, 2016 08:41
--- NOTE | 2016-08-29 08:43 | DS ---
Date/Time of Note Date/Time of Note DATE: 08/29/16 TIME: 08:42 Discharge Summary Admission/Discharge Info Admit Date/Time Aug 28, 2016 at 06:21 Discharge Date/Time Patient Condition: Stable Consults general surgery Procedures gallbladder US 7.13 IMPRESSION: 1. Cholelithiasis. 2. Hepatic steatosis. Hx of Present Illness 25 yo M with pmhx spina bifida presents with complaint of abd pain. Of note, pt had presented 48 hours prior for same. At time of my attempted evaluation, pt sleeping quite soundly and I was not able to obtain much useful information from clinical interview. unable to obtain ROS from pt 2/2 sleepiness PMHx as above Home meds as per EMR Soc Hx: lives in the community Hospital Course Abd pain resolved shortly after admission. Pt tolerating PO at time of discharge. Pt seen by gen surg, given no cholecystitis no indication for urgent cholecystectomy. Pt advised to f/u with PCP for abd pain issues. No new meds. Home Meds Active Scripts Ciprofloxacin Hcl* (Ciprofloxacin Hcl*) 500 Mg Tablet, 500 MG PO BID for 7 Days , TAB Prov:ANUPAMA ODONNELL DO 08/26/16 Ondansetron (Zofran Odt) 4 Mg Tab.rapdis, 4 MG PO Q6, #10 Prov:ANUPAMA ODONNELL DO 08/26/16 Naproxen* (Naprosyn*) 500 Mg Tablet, 500 MG PO BID Y for PAIN AND/OR INFLAMMATION, #30 TAB Prov:ANUPAMA ODONNELL DO 08/26/16 Hydrocodone/Acetaminophen ([place] 5-325 Tablet) 1 Each Tablet, 1 EACH PO Q6, #20 TAB Prov:ANUPAMA ODONNELL DO 08/26/16 Discontinued Scripts Hydrocodone/Acetaminophen ([place] 10-325 Tablet) 1 Each Tablet, 1 TAB PO Q6H, # 20 TAB Prov:RAJAN VALLECILLO 07/21/16 Cephalexin* (Keflex*) 500 Mg Capsule, 500 MG PO BID for 7 Days, CAP Prov:ESTELITA LITTLE MD 07/19/16 Ondansetron (Ondansetron Odt) 4 Mg Tab.rapdis, 4 MG PO Q6H Y for NAUSEA AND/OR VOMITING, #30 TAB Prov:ESTELITA LITTLE MD 07/19/16 Hydrocodone/Acetaminophen ([place] 10-325 Tablet) 1 Each Tablet, 1 TAB PO Q6H Y for PAIN, #7 TAB Prov:ESTELITA LITTLE MD 07/19/16 Ibuprofen* (Motrin*) 600 Mg Tab, 600 MG PO Q6H Y for PAIN AND OR ELEVATED TEMP, #20 TAB Prov:GIANLUCA ELAM MD 06/06/16 Ondansetron (Ondansetron Odt) 4 Mg Tab.rapdis, 4 MG PO Q6H Y for NAUSEA AND/OR VOMITING, #10 TAB Prov:GIANLUCA ELAM MD 06/06/16 Levofloxacin* (Levofloxacin*) 500 Mg Tablet, 500 MG PO DAILY for 42 Days, TAB Prov:SUSIE GRULLON 03/31/16 Linezolid (Linezolid) 600 Mg Tablet, 600 MG PO BID for 42 Days, TAB Prov:SUSIE GRULLON 03/31/16 Follow-up Plan PCP within [address] [facility] Time spent on discharge: > 30 minutes Pending Labs Laboratory Tests Test 08/28/16 12:30 08/28/16 13:26 Urine Opiates Screen Positive (NEGATIVE) Urine Barbiturates Negative (NEGATIVE) Urine Amphetamines Screen Negative (NEGATIVE) Urine Benzodiazepines Screen Negative (NEGATIVE) Urine Cocaine Screen Negative (NEGATIVE) Urine Cannabinoids Positive (NEGATIVE) Ethyl Alcohol Level < 10.0mg/dl ROGERIO MOE MD Aug 29, 2016 08:43
[2016-08-29] MEDS: ENOXAPARIN 40 MG/0.4 ML SYG SC SCH (09:00)
[2016-08-29 14:40] VITALS: BP 118/70; PULSE 74; RESP 18
== END 2016-08-29 14:45 | disposition home or self-care (01) | DRG 445 ==
LOC: E/R 04:15 → MS1 06:21
PROVIDERS: ADMIT Family Medicine; ATTEND Family Medicine
DX: K80.20 Calculus of gallbladder without cholecystitis without obstruction (principal); G82.20 Paraplegia, unspecified; K76.0 Fatty (change of) liver, not elsewhere classified; Q05.9 Spina bifida, unspecified; Z76.5 Malingerer [conscious simulation]
CPT/HCPCS: 36415; 76705; 80053; 80306; 80307; 81001; 83690; 85025; 96374; 96375; J1650; J1885; J2405; J3010; J7030

== ENCOUNTER 2016-11-13 11:46 | Inpatient (IN) | payer OTHER ==
[~2016-11-13] VITALS: Ht 152.4 cm; Wt 77.0 kg
[~2016-11-13 11:46] MED LIST changes: -CIPR500T4 PO; -HYDR-906 PO
[2016-11-13] MEDS ORDERED: ONDANSETRON 4 MG INJ IV STA (12:02)
[2016-11-13] MEDS ORDERED: SOD CHLORIDE 0.9% 1,000 ML IV STA (12:02)
[2016-11-13] MEDS ORDERED: HYDROmorphONE 1 MG/ML SYG IV STA (12:02)
[2016-11-13 12:45] LABS: BASOPHILS % 0.2 % (0.0-2.0); EOSINOPHILS # 0.1 10^3/ul (0.0-0.5); EOSINOPHILS % 0.5 % (0.0-7.0); HEMATOCRIT 48.1 % (42.0-52.0); HEMOGLOBIN 15.6 g/dl (14.0-18.0); LYMPHOCYTES # 1.7 10^3/ul (0.8-2.9); LYMPHOCYTES % 11.7 % (15.0-51.0); MEAN CORPUSCULAR HEMOGLOBIN 22.8 pg (29.0-33.0); MEAN CORPUSCULAR HGB CONC 32.4 g/dl (32.0-37.0); MEAN CORPUSCULAR VOLUME 70.4 fl (82.0-101.0); MEAN PLATELET VOLUME 10.4 fl (7.4-10.4); MONOCYTE # 0.8 10^3/ul (0.3-0.9); MONOCYTES % 5.2 % (0.0-11.0); NEUTROPHIL # 12.1 10^3/ul (1.6-7.5); NEUTROPHILS % 82.1 % (39.0-77.0); PLATELET COUNT 319 10^3/UL (140-415); RED BLOOD COUNT 6.83 10^6/ul (4.70-6.10); RED CELL DISTRIBUTION WIDTH 19.4 % (11.5-14.5); WHITE BLOOD COUNT 14.7 10^3/ul (4.8-10.8)
[2016-11-13 12:59] LABS: INR 1.01; PROTIME 13.3 Sec (12.2-14.2)
[2016-11-13 13:00] LABS: ALBUMIN 4.4 g/dl (3.3-4.9); ALBUMIN/GLOBULIN RATIO 1.1; BILIRUBIN,INDIRECT 0.2 mg/dl (0-1.1); BILIRUBIN,TOTAL 0.2 mg/dl (0.2-1.3); CALCIUM 9.3 mg/dl (8.4-10.2); CREATININE 0.58 mg/dl (0.61-1.24); PARTIAL THROMBOPLASTIN TIME 26.2 Sec (25.0-35.0); POTASSIUM 4.2 mmol/L (3.5-5.1); TOTAL PROTEIN 8.4 g/dl (6.1-8.1)
[2016-11-13] MEDS ORDERED: IOHEXOL 300MG/ML 150 ML BTL ONE (13:13)
[2016-11-13] MEDS ORDERED: SOD CHLORIDE 0.9% 100 ML ONE (13:13)
--- NOTE | 2016-11-13 13:42 | RADRPT ---
PROCEDURE: Right Upper Quadrant Ultrasound. CLINICAL INDICATION: Abdominal Pain TECHNIQUE: Multiple real-time images were acquired of the patient's right upper quadrant abdomen a nd retroperitoneum utilizing a high resolution transducer. COMPARISON: None FINDINGS: The liver measures 14.5 cm, and demonstrates mildly coarsened echotexture and increased echogenicity . The main portal vein is patent with proper directional flow. There is no intrahepatic biliary duct al dilatation. The extrahepatic common bile duct measures 9 mm. There is cholelithiasis. There is no gallbladder wall thickening or pericholecystic fluid. The pancreas is not visualized. The right kidney measures 10.5 cm and demonstrates normal echotexture. There is no right renal calcu brittaney or hydronephrosis. The visualized abdominal aorta and IVC are grossly unremarkable. IMPRESSION: The liver demonstrates mildly coarsened echotexture and increased echogenicity which are nonspecific , but can be seen with fatty infiltration as well as early chronic liver disease. No definite morpho logic changes of cirrhosis are identified. The main portal vein is patent with proper directional fl ow. Cholelithiasis without evidence of acute cholecystitis. Moreover, there is dilatation of the common bile duct to 9 mm which suggests choledocholithiasis. An MRCP can be obtained for further evaluation . RPTAT: EE Physician Lai Date Time Electronically viewed and signed by Physician Lai on 11/13/2016 13:41 /
[2016-11-13] MEDS ORDERED: PIPER-TAZO 3.375 GM IV (PMX) 100 ML IVPB STA (13:48)
--- NOTE | 2016-11-13 14:20 | RADRPT ---
PROCEDURE: CT Abdomen and Pelvis with Contrast CLINICAL INDICATION: Sudden onset of right upper quadrant pain, nausea and vomiting. History a spin a bifida TECHNIQUE: Transaxial images were obtained through the abdomen and pelvis on a multi-slice scanner following the intravenous administration of 100 cc of Omnipaque-300 contrast. No oral contrast had previously been given. Sagittal and coronal re-formations were subsequently reconstructed. One or more of the following dose reduction techniques were used: - Automated exposure control. - Adjustment of the mA and/or kV according to patient size. - Use of iterative reconstruction technique. Radiation dose: CTDIvol = 10.70 mGy; DLP = 676.76 mGy-cm. COMPARISON: 08/26/2016 FINDINGS: Lung bases: The visualized lung bases appear unremarkable. A right-sided PANTOGRAPH MACHINE OPERATOR shunt catheter is eviden t with the tip located within the right abdomen. Liver: A 5 mm cyst is now seen at the dome of the right lobe of the liver. The liver otherwise appea rs unremarkable. Gallbladder: The wall is not thickened. The previously visualized gallstone is no longer discretely identified.. Bile ducts: The intra and extrahepatic bile ducts are normal in caliber. Pancreas: Appears normal with no mass or inflammation evident. Spleen: The spleen is borderline enlarged. Adrenals: Normal with no mass identified. Kidneys, ureters and bladder: The kidneys enhance normally and are normal in size and there is no ma ss, pathological calcification, or hydronephrosis evident. There is no perinephric stranding. The ur eters are normal in caliber and no ureteroliths are identified. The bladder wall appears thickened a nd the Miranda catheter has been removed since the previous study. Reproductive organs: Unremarkable. Stomach, bowel, and mesentery: The stomach appears unremarkable. The small bowel appears unremarkabl e. [place] are seen about a segment of sigmoid colon with focal stool distension of a small segment of bowel. More distally another small segment of stool distended bowel is evident but there is no ev idence of high-grade bowel obstruction. The cecum is positioned somewhat high in the right abdomen. Appendix: A normal-appearing vermiform appendix is evident. Peritoneum: No free intraperitoneal fluid or air is identified. Aorta: Normal in caliber with no aneurysmal dilatation. IVC: Unremarkable. Lymph nodes: No pathologically enlarged nodes are identified. Osseous structures: There is a spina bifida from the L2 to the sacrum with dysplasia of the iliac an d pubic bones as well as the proximal femurs. 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 There is again increased sclerosis to the ischium a tory aterally with the suggestion of decubitus ulceration particularly on the right IMPRESSION: 1. Cholelithiasis is no longer discretely identified and the gallbladder wall is not thickened. Ther e is no bile duct dilatation and the pancreas again appears unremarkable. 2. [place] are again seen in the region of the sigmoid colon with a short segment of stool distende d colon. There is no evidence of high-grade obstruction or inflammation and a normal vermiform appen wilfred is again evident. 3. The kidneys appear unremarkable and there is again no evidence of urinary outflow obstruction or ureterolithiasis. The Miranda catheter is no longer evident and the bladder wall appears diffusely th ickened. 4. A 5 mm cyst is now seen at the dome of the right lobe of the liver. The liver otherwise appears unremarkable. The spleen is again borderline enlarged. 5. There is no free intraperitoneal fluid or air. 6. A right-sided PANTOGRAPH MACHINE OPERATOR shunt catheter is evident with the tip of the right abdomen. 7. Spina bifida deformity from approximately L2 through the sacrum with dysmorphic appearing iliac and pubic bones as well as proximal femurs and with pseudoarthroses about the hip joints. This has n ot significantly changed from the previous study. 8. Decubitus ulcers are again seen bilaterally with tracts extending to the ischia bilaterally with increased sclerosis raising the possibility of chronic osteomyelitis, unchanged. Physician Angelic Date Time Electronically viewed and signed by Physician Angelic on 11/13/2016 14:19 RH/
[2016-11-13] MEDS: SOD CHLORIDE 0.9% 1,000 ML IV SCH (14:46)
[2016-11-13 14:56] VITALS: PULSE 80; TEMP 98.7
[2016-11-13] MEDS ORDERED: NACL 0.9% 3 ML SYG IV SCH (15:00)
[2016-11-13] MEDS ORDERED: BISACODYL 10 MG SUPP PR PRN (15:00)
[2016-11-13] MEDS ORDERED: ONDANSETRON 4 MG INJ IV PRN (15:00)
[2016-11-13] MEDS ORDERED: MAGNESIUM HYDROXIDE 30ML CUP PO PRN (15:00)
[2016-11-13] MEDS ORDERED: DOCUSATE SODIUM 100 MG CAP PO PRN (15:00)
[2016-11-13] MEDS ORDERED: ACETAMINOPHEN 325 MG TAB PO PRN (15:00)
[2016-11-13] MEDS ORDERED: ACETAMINOPHEN 650 MG SUPP PR PRN (15:00)
--- NOTE | 2016-11-13 15:33 | HP ---
Date/Time of Note Date/Time of Note DATE: 11/13/16 TIME: 15:21 Assessment/Plan VTE Prophylaxis VTE Prophylaxis Intervention: SCD's Assessment/Plan Chief Complaint/Hosp Course Impression and plan 1. Abdominal pain with suspect choledocholithiasis. Plan for MRCP. Will get special officer consultation. Place n.p.o. for now. Continue with IV hydration. Analgesics as needed. 2. Pancreatitis likely secondary to #1. On IV hydration. Monitor level. Analgesics for pain. 3. History of spina bifida. Continue skin precautions. 4. History of chronic decubitus ulcers with possible osteomalacia. Will get wound care consult to follow. 5. UTI. Follow-up on cultures. 6. Leukocytosis likely secondary to #1 and #5. Continue antibiotics for now. Follow-up on cultures. Admission process time >40 minutes Discussed plan of care with Dr. Rosa Problems: HPI/ROS Admit Date/Time Admit Date/Time Hx of Present Illness This is a this is a 26-year-old male with history of spina bifida who is paralyzed from waist down with history of decubitus ulcers who came to [facility] after reportedly having abdominal pain. Patient did have initial gallbladder ultrasound showing common bile duct dilation measuring 9 mm. Patient was also noted with elevated lipase level of 349. Patient was also noted with a white count of 14.7 although afebrile. He does report that pain is more upper area of abdomen towards the middle and he does have associated nausea and vomiting nonbilious nonbloody. He does report that he was in the hospital in August 2016 for similar issues and was seen by surgeon at that time but no surgical intervention recommended at that time. We will evaluate him for the aformentiond issues. ROS 12 point review of systems obtained and entirely negative except as mentioned in the history of present illness PMH/Family/Social Past Medical History Medical/surgical history 1. Spina bifida 2. History of chronic decubitus ulcers with possible osteomyelitis Social History Smoking Status: Current every day smoker Exam/Review of Systems Vital Signs Vitals Vital Signs Date Time Temp Pulse Resp B/P Pulse Ox O2 Delivery O2 Flow Rate FiO2 11/13/16 14:56 98.7 80 16 111/67 99 Room Air Exam Constitutional: alert, oriented Head: normocephalic Respiratory: clear to auscultation, congested cough Cardiovascular: regular rate and rhythm Gastrointestinal: soft, tender (More on upper abdominal quadrants) Extremities: other (Noted spina bifida) Neurological: nl mental status, nl speech Skin: other (Decubitus ulcer) Labs Result Diagram: 11/13/16 1230 11/13/16 1230 Medications Medications Current Medications Sodium Chloride (NS) 1,000 ml @ 75 mls/hr [id number] IV ; Start 11/13/16 at 14:46 Ondansetron HCl (Zofran Inj) 4 mg Q6H PRN IV NAUSEA AND/OR VOMITING; Start at 15:00 Acetaminophen (Tylenol Tab) 650 mg Q6H PRN PO PAIN LEVEL 1-3 OR FEVER; Start at 15:00 Acetaminophen (Tylenol Supp) 650 mg Q6H PRN [place] PAIN LEVEL 1-3 OR FEVER; Start 11/13/16 at 15:00 Docusate Sodium (Colace) 100 mg Q12H PRN PO CONSTIPATION; Start 11/13/16 at 15: 00 Magnesium Hydroxide (Milk Of Mag) 30 ml DAILY PRN PO CONSTIPATION; Start at 15:00 Bisacodyl (Dulcolax Supp) 10 mg DAILY PRN [place] CONSTIPATION; Start 11/13/16 at 15 :00 Pantoprazole (Protonix Iv) 40 mg DAILY@06 IV ; Start 11/14/16 at 06:00; Status XOCHILT ROWELL Nov 13, 2016 15:31
[2016-11-13 15:45] VITALS: Ht 152.4 cm; Wt 77.0 kg
[2016-11-13] MEDS ORDERED: INFLUENZA VIRUS VACCINE 0.5 ML SYG IM* ONE (18:00)
[2016-11-13] MEDS: CIPROFLOXACIN 400MG/D5W 200 ML IVPB SCH (18:32)
[2016-11-13 20:00] VITALS: BP 112/70; RESP 20
[2016-11-13] MEDS: morphine 2 MG INJ IV PRN (23:20)
[2016-11-14 02:00] VITALS: BP 120/73; RESP 20
[2016-11-14] MEDS: SOD CHLORIDE 0.9% 1,000 ML IV SCH ×2 (04:06→08:13)
[2016-11-14] MEDS: PANTOPRAZOLE (EC) 40 MG TAB PO SCH (05:59)
[2016-11-14] MEDS: CIPROFLOXACIN 400MG/D5W 200 ML IVPB SCH ×2 (08:13→21:38)
[2016-11-14] MEDS: DEXTROSE 5%-0.45% NACL 1,000 ML IV SCH ×2 (11:06→21:38)
--- NOTE | 2016-11-14 11:18 | PN ---
Date/Time of Note Date/Time of Note DATE: 11/14/16 TIME: 11:13 Assessment/Plan VTE Prophylaxis VTE Prophylaxis Intervention: SCD's Lines/Catheters IV [facility]from [facility]): Peripheral IV Urinary Cath still in place: Yes Reason Cath still needed: terminal illness/intractable pain Assessment/Plan Chief Complaint/Hosp Course Patient is a 26-year-old male with a past past medical history of spina bifida who presents to [facility] with abdominal pain. Gallbladder ultrasound shows ductal dilation. Assessment Abdominal pain Questionable choledocholithiasis Pancreatitis History of spina bifida History of chronic decubitus ulcers UTI Leukocytosis Plan -GI consulted, ordered MRCP, patient angry that he did not see GI last visit, upon reviewing previous records, patient was admitted for Erin lithiasis and possible cholecystitis, general surgery recommended discharge. -CT noted, no choledocholithiasis appreciated, await MRCP results -Continue antibiotics -Continue IV hydration, switched fluids to D5 and half-normal saline as patient will be n.p.o. for MRCP, resume regular diet afterwards as tolerated -Follow-up tomorrow Problems: Subjective 24 Hr Interval Summary Free Text/Dictation patient angry over plans of care. Wants to know what is going on. Exam/Review of Systems Vital Signs Vitals Vital Signs Date Time Temp Pulse Resp B/P Pulse Ox O2 Delivery O2 Flow Rate FiO2 11/14/16 02:00 98.6 88 20 120/73 99 11/13/16 14:56 Room Air Intake and Output 11/13/16 11/13/16 11/14/16 15:00 23:00 07:00 Intake Total 500 ml 952 ml Output Total 300 ml 1500 ml Balance 200 ml -548 ml Exam Constitutional: alert, oriented Head: normocephalic, atruamtic Respiratory: mildly coarse bilaterally. Cardiovascular: regular rate and rhythm Gastrointestinal: soft, non-tender in all quadrants Extremities: other (Noted spina bifida) Neurological: nl mental status, nl speech Skin: other (Decubitus ulcer) Results Result Diagram: 11/13/16 1230 11/13/16 1230 Results 24 hrs Laboratory Tests Test 11/13/16 12:30 White Blood Count 14.7 #H Red Blood Count 6.83 H Hemoglobin 15.6 Hematocrit 48.1 Mean Corpuscular Volume 70.4 L Mean Corpuscular Hemoglobin 22.8 L Mean Corpuscular Hemoglobin Concent 32.4 Red Cell Distribution Width 19.4 #H Platelet Count 319 Mean Platelet Volume 10.4 Neutrophils % 82.1 H Lymphocytes % 11.7 L Monocytes % 5.2 Eosinophils % 0.5 Basophils % 0.2 Nucleated Red Blood Cells % 0.0 Neutrophils # 12.1 H Lymphocytes # 1.7 Monocytes # 0.8 Eosinophils # 0.1 Basophils # 0.0 Nucleated Red Blood Cells # 0.0 Prothrombin Time 13.3 Prothrombin Time Ratio 1.0 INR International Normalized Ratio 1.01 Activated Partial Thromboplast Time 26.2 Sodium Level 144 Potassium Level 4.2 Chloride Level 111 H Carbon Dioxide Level 23 Anion Gap 14 Blood Urea Nitrogen 10 Creatinine 0.58 L Glucose Level 102 Calcium Level 9.3 Total Bilirubin 0.2 Direct Bilirubin 0.00 Indirect Bilirubin 0.2 Aspartate Amino Transf (AST/SGOT) 33 Alanine Aminotransferase (ALT/SGPT) 54 Alkaline Phosphatase 211 H Total Protein 8.4 H Albumin 4.4 Globulin 4.00 H Albumin/Globulin Ratio 1.10 Amylase Level 88 Lipase 349 H Medications Medications Current Medications Ondansetron HCl (Zofran Inj) 4 mg Q6H PRN IV NAUSEA AND/OR VOMITING; Start at 15:00 Acetaminophen (Tylenol Tab) 650 mg Q6H PRN PO PAIN LEVEL 1-3 OR FEVER; Start at 15:00 Acetaminophen (Tylenol Supp) 650 mg Q6H PRN [place] PAIN LEVEL 1-3 OR FEVER; Start 11/13/16 at 15:00 Docusate Sodium (Colace) 100 mg Q12H PRN PO CONSTIPATION; Start 11/13/16 at 15: 00 Magnesium Hydroxide (Milk Of Mag) 30 ml DAILY PRN PO CONSTIPATION; Start at 15:00 Bisacodyl (Dulcolax Supp) 10 mg DAILY PRN [place] CONSTIPATION; Start 11/13/16 at 15 :00 Pantoprazole 40 mg 40 mg DAILY@06 PO ; Start 11/14/16 at 06:00 Ciprofloxacin/ Dextrose (Cipro Ivpb) 200 ml @ 200 mls/hr BID IVPB Last administered on 11/14/16t 08:13; Admin Dose 200 MLS/HR; Start 11/13/16 at 18:30 Morphine Sulfate 2 mg 2 mg Q4H PRN IV pain Last administered on 11/13/16 23:20 ; Admin Dose 2 MG; Start 11/13/16 at 17:00 Dextrose/Sodium Chloride (D5-1/2ns) 1,000 ml @ 100 mls/hr Q10H IV Last administered on 11/14/16 11:06; Admin Dose 100 MLS/HR; Start 11/14/16 at 11:00 VERNON KWON Nov 14, 2016 11:18
[2016-11-14] MEDS ORDERED: LORAZEPAM 2 MG INJ IV PRN (12:00)
[2016-11-14 13:00] VITALS: BP 117/62; RESP 20
[2016-11-14] MEDS: morphine 2 MG INJ IV PRN (13:45)
[2016-11-14 15:09] LABS: BASOPHILS % 0.3 % (0.0-2.0); EOSINOPHILS # 0.1 10^3/ul (0.0-0.5); EOSINOPHILS % 0.9 % (0.0-7.0); HEMATOCRIT 46.1 % (42.0-52.0); HEMOGLOBIN 14.3 g/dl (14.0-18.0); LYMPHOCYTES # 2.2 10^3/ul (0.8-2.9); LYMPHOCYTES % 19.8 % (15.0-51.0); MEAN CORPUSCULAR HEMOGLOBIN 21.8 pg (29.0-33.0); MEAN CORPUSCULAR VOLUME 70.4 fl (82.0-101.0); MEAN PLATELET VOLUME 10.3 fl (7.4-10.4); MONOCYTE # 0.7 10^3/ul (0.3-0.9); NEUTROPHILS % 72.7 % (39.0-77.0); PLATELET COUNT 321 10^3/UL (140-415); RED BLOOD COUNT 6.55 10^6/ul (4.70-6.10); RED CELL DISTRIBUTION WIDTH 19.8 % (11.5-14.5); WHITE BLOOD COUNT 11.1 10^3/ul (4.8-10.8)
[2016-11-14 15:34] LABS: ALBUMIN 3.9 g/dl (3.3-4.9); ALBUMIN/GLOBULIN RATIO 1.08; BILIRUBIN,INDIRECT 0.2 mg/dl (0-1.1); BILIRUBIN,TOTAL 0.2 mg/dl (0.2-1.3); CALCIUM 8.9 mg/dl (8.4-10.2); CHOL/HDL RATIO 5.8 RATIO; CREATININE 0.5 mg/dl (0.61-1.24); MAGNESIUM 1.6 mg/dl (1.7-2.5); PHOSPHORUS 3.5 mg/dl (2.5-4.9); POTASSIUM 3.8 mmol/L (3.5-5.1); TOTAL PROTEIN 7.5 g/dl (6.1-8.1)
[2016-11-14 16:30] LABS: T3 UPTAKE 40.6 % (23.5-40.5)
[2016-11-14 16:46] LABS: THYROID STIMULATING HORMONE 1.6 MIU/L (0.465-4.680)
[2016-11-14 20:00] VITALS: BP 122/72; RESP 20
[2016-11-15 02:00] VITALS: BP 115/71; RESP 20
[2016-11-15] MEDS: morphine 2 MG INJ IV PRN ×2 (04:17→16:53)
[2016-11-15] MEDS: PANTOPRAZOLE (EC) 40 MG TAB PO SCH (05:35)
[2016-11-15 05:37] LABS: BASOPHILS % 0.1 % (0.0-2.0); EOSINOPHILS # 0.2 10^3/ul (0.0-0.5); EOSINOPHILS % 2.3 % (0.0-7.0); HEMATOCRIT 46.2 % (42.0-52.0); HEMOGLOBIN 14.5 g/dl (14.0-18.0); LYMPHOCYTES # 2.3 10^3/ul (0.8-2.9); LYMPHOCYTES % 25.8 % (15.0-51.0); MEAN CORPUSCULAR HGB CONC 31.4 g/dl (32.0-37.0); MEAN CORPUSCULAR VOLUME 70.2 fl (82.0-101.0); MEAN PLATELET VOLUME 10.5 fl (7.4-10.4); MONOCYTE # 0.6 10^3/ul (0.3-0.9); MONOCYTES % 6.4 % (0.0-11.0); NEUTROPHIL # 5.7 10^3/ul (1.6-7.5); NEUTROPHILS % 65.1 % (39.0-77.0); PLATELET COUNT 312 10^3/UL (140-415); RED BLOOD COUNT 6.58 10^6/ul (4.70-6.10); RED CELL DISTRIBUTION WIDTH 19.9 % (11.5-14.5); WHITE BLOOD COUNT 8.8 10^3/ul (4.8-10.8)
[2016-11-15 06:14] LABS: CALCIUM 8.7 mg/dl (8.4-10.2); CREATININE 0.51 mg/dl (0.61-1.24); MAGNESIUM 1.7 mg/dl (1.7-2.5); PHOSPHORUS 3.9 mg/dl (2.5-4.9)
[2016-11-15] MEDS: CIPROFLOXACIN 400MG/D5W 200 ML IVPB SCH ×2 (08:43→21:09)
[2016-11-15] MEDS: DEXTROSE 5%-0.45% NACL 1,000 ML IV SCH ×3 (09:05→21:09)
--- NOTE | 2016-11-15 10:08 | RADRPT ---
PROCEDURE: MR Abdomen and MRCP. CLINICAL INDICATION: Choledocholithiasis TECHNIQUE: MRI abdomen without contrast and MRCP was performed on a high-resolution high field [facility]. 3-D coronal rotating MIP images of the biliary tree are available for review. COMPARISON: CT abdomen/pelvis 11/13/2016 and MRI sacrum 03/25/2016 FINDINGS: MRI Abdomen: A right ventriculoperitoneal shunt catheter is stable in position. The liver is normal in size and morphology. A 6 mm cyst is again seen in the dome of the liver. No d iscrete hepatic mass is identified. Is no evidence of intrahepatic biliary ductal dilatation. The ga llbladder contains multiple small gallstones. There is no evidence of gallbladder wall thickening or pericholecystic fluid. The extrahepatic duct measures 6 mm in maximal diameter at the marcela. The co mmon bile duct tapers normally proximally and dilates slightly and is mid segment to 6 mm in diamete r (series 6, image 48) and tapers again distally to the level of the pancreatic head where there is again mild fusiform dilatation measuring approximately 5 mm in diameter (series 6, image 44). The di stal common bile duct at the level of the ampulla is not well seen. No intraluminal filling defect i s seen within the common bile duct suggest choledocholithiasis. The spleen is borderline enlarged, m easuring up to 12.7 cm in length. Pancreas is normal in signal intensity. The main pancreatic duct is not dilated. The adrenal glands and kidneys are normal and symmetric in size and morphology. Ther e is no evidence of hydronephrosis or perirenal collection. The bowel mesentery, as visualized, are unremarkable. No free intraperitoneal fluid is seen. The visualized aorta is normal in caliber. No l ymphadenopathy is identified. Lumbosacral spina bifida is partially imaged and better evaluated on p rior MRI sacrum 03/25/[address] abdomen/pelvis of 11/13/2016. IMPRESSION: 1. Cholelithiasis without evidence of acute cholecystitis. 2. No evidence of choledocholithiasis. The common bile duct measures up to 6 mm in diameter, the upp er limits of normal. No intrahepatic biliary ductal dilatation. 3. Small 6 mm hepatic cyst at the dome. 4. Borderline splenomegaly. 5. Lumbosacral spina bifida, better evaluated on prior MRI sacrum of 03/25/2016. RPTAT: QQ Ru Leach, Physician Date Time Electronically viewed and signed by Ru Leach Physician on 11/15/2016 10:08 RC/
[2016-11-15] MEDS ORDERED: TRAM50TA2 PO (11:26)
--- NOTE | 2016-11-15 13:09 | PN ---
Date/Time of Note Date/Time of Note DATE: 11/15/16 TIME: 13:04 Assessment/Plan VTE Prophylaxis VTE Prophylaxis Intervention: SCD's Lines/Catheters IV Catheter Type (from Nrs): Peripheral IV Urinary Cath still in place: Yes Reason Cath still needed: other (indicate) (monitor I&O) Assessment/Plan Chief Complaint/Hosp Course Impression and plan 1. Abdominal pain with suspect choledocholithiasis. Status post MRCP with cholelithiasis without evidence of cholecystitis. No choledocholithiasis seen. Improved at present. Continue with analgesics as needed. 2. Pancreatitis likely secondary to #1. On IV hydration. Monitor level. Analgesics for pain. Proving 3. History of spina bifida. Continue skin care 4. History of chronic decubitus ulcers with possible osteomalacia. wound care consult pending 5. UTI. Final cultures pending. Continue antibiotics. 6. Leukocytosis likely secondary to #1 and #5. Continue antibiotics for now. Follow-up on cultures. 7. Abnormal thyroid panel.Thyroid binding globulin level pending. Disposition plan: Follow-up on thyroid globulin level. central office equipment engineer to follow pending result. follow up on final urine culture . Discussed plan of care with Dr. Rosa Problems: Subjective 24 Hr Interval Summary Free Text/Dictation no reported abd pain at this time Exam/Review of Systems Vital Signs Vitals Vital Signs Date Time Temp Pulse Resp B/P Pulse Ox O2 Delivery O2 Flow Rate FiO2 11/15/16 02:00 98.3 77 20 115/71 99 11/13/16 14:56 Room Air Intake and Output 11/14/16 11/14/16 11/15/16 15:00 23:00 07:00 Intake Total 975 ml 1020 ml 950 ml Output Total 1400 ml 1200 ml Balance 975 ml -380 ml -250 ml Exam Constitutional: alert, oriented Head: normocephalic Respiratory: clear to auscultation, congested cough Cardiovascular: regular rate and rhythm Gastrointestinal: soft, tender (More on upper abdominal quadrants) Extremities: other (Noted spina bifida) Neurological: nl mental status, nl speech Skin: other (Decubitus ulcer) Results Result Diagram: 11/15/16 0508 11/15/16 0508 Results 24 hrs Laboratory Tests Test 11/14/16 14:45 11/15/16 05:08 White Blood Count 11.1 #H 8.8 # Red Blood Count 6.55 H 6.58 H Hemoglobin 14.3 14.5 Hematocrit 46.1 46.2 Mean Corpuscular Volume 70.4 L 70.2 L Mean Corpuscular Hemoglobin 21.8 L 22.0 L Mean Corpuscular Hemoglobin Concent 31.0 L 31.4 L Red Cell Distribution Width 19.8 H 19.9 H Platelet Count 321 312 Mean Platelet Volume 10.3 10.5 H Neutrophils % 72.7 65.1 Lymphocytes % 19.8 25.8 Monocytes % 6.0 6.4 Eosinophils % 0.9 2.3 Basophils % 0.3 0.1 Nucleated Red Blood Cells % 0.0 0.0 Neutrophils # 8.0 H 5.7 Lymphocytes # 2.2 2.3 Monocytes # 0.7 0.6 Eosinophils # 0.1 0.2 Basophils # 0.0 0.0 Nucleated Red Blood Cells # 0.0 0.0 Sodium Level 140 141 Potassium Level 3.8 4.0 Chloride Level 108 108 Carbon Dioxide Level 21 25 Anion Gap 15 12 Blood Urea Nitrogen 5 L 8 Creatinine 0.50 L 0.51 L Glucose Level 87 111 Hemoglobin A1c 5.5 Calcium Level 8.9 8.7 Phosphorus Level 3.5 3.9 Magnesium Level 1.6 L 1.7 Total Bilirubin 0.2 Direct Bilirubin 0.00 Indirect Bilirubin 0.2 Aspartate Amino Transf (AST/SGOT) 42 Alanine Aminotransferase (ALT/SGPT) 45 Alkaline Phosphatase 183 H Total Protein 7.5 Albumin 3.9 Globulin 3.60 H Albumin/Globulin Ratio 1.08 Triglycerides Level 55 Cholesterol Level 129 LDL Cholesterol, Calculated 96 HDL Cholesterol 22 L Cholesterol/HDL Ratio 5.8 Thyroid Stimulating Hormone (TSH) 1.600 Free Thyroxine Index 6.05 H Thyroxine (T4) 14.9 H Triiodothyronine (T3) Uptake 40.6 H Medications Medications Current Medications Ondansetron HCl (Zofran Inj) 4 mg Q6H PRN IV NAUSEA AND/OR VOMITING; Start at 15:00 Acetaminophen (Tylenol Tab) 650 mg Q6H PRN PO PAIN LEVEL 1-3 OR FEVER; Start at 15:00 Acetaminophen (Tylenol Supp) [address] PAIN LEVEL 1-3 OR FEVER; Start 11/13/16 at 15:00 Docusate Sodium (Colace) 100 mg Q12H PRN PO CONSTIPATION; Start 11/13/16 at 15: 00 Magnesium Hydroxide (Milk Of Mag) 30 ml DAILY PRN PO CONSTIPATION; Start at 15:00 Bisacodyl (Dulcolax Supp) [address] CONSTIPATION; Start 11/13/16 at 15 :00 Pantoprazole 40 mg 40 mg DAILY@06 PO ; Start 11/14/16 at 06:00 Ciprofloxacin/ Dextrose (Cipro Ivpb) 200 ml @ 200 mls/hr BID IVPB Last administered on 11/15/16 08:43; Admin Dose 200 MLS/HR; Start 11/13/16 at 18:30 Morphine Sulfate 2 mg 2 mg Q4H PRN IV pain Last administered on 11/15/16 04:17 ; Admin Dose 2 MG; Start 11/13/16 at 17:00 Dextrose/Sodium Chloride (D5-1/2ns) 1,000 ml @ 100 mls/hr Q10H IV Last administered on 11/15/16 09:05; Admin Dose 100 MLS/HR; Start 11/14/16 at 11:00 XOCHILT LOZOYA Nov 15, 2016 13:09
[2016-11-15 20:49] VITALS: BP 117/74; RESP 18
[2016-11-16] MEDS: PANTOPRAZOLE (EC) 40 MG TAB PO SCH (05:31)
[2016-11-16] MEDS: CIPROFLOXACIN 400MG/D5W 200 ML IVPB SCH ×2 (09:37→20:14)
[2016-11-16] MEDS: DEXTROSE 5%-0.45% NACL 1,000 ML IV SCH ×2 (09:39→22:51)
[2016-11-16] MEDS: morphine 2 MG INJ IV PRN ×2 (09:50→20:14)
[2016-11-16 10:09] LABS: ALBUMIN 3.8 g/dl (3.3-4.9); ALBUMIN/GLOBULIN RATIO 0.97; BILIRUBIN,INDIRECT 0.3 mg/dl (0-1.1); BILIRUBIN,TOTAL 0.3 mg/dl (0.2-1.3); CALCIUM 9.2 mg/dl (8.4-10.2); CREATININE 0.51 mg/dl (0.61-1.24); TOTAL PROTEIN 7.7 g/dl (6.1-8.1)
--- NOTE | 2016-11-16 12:37 | PN ---
Date/Time of Note Date/Time of Note DATE: 11/16/16 TIME: 12:34 Assessment/Plan VTE Prophylaxis VTE Prophylaxis Intervention: SCD's Lines/Catheters IV Catheter Type (from Nrs): Peripheral IV Urinary Cath still in place: Yes Reason Cath still needed: other (indicate) (monitor I&O) Assessment/Plan Chief Complaint/Hosp Course Impression and plan 1. Abdominal pain with suspect choledocholithiasis. Status post MRCP with cholelithiasis without evidence of cholecystitis. No choledocholithiasis seen. Improved at present. Continue with analgesics as needed. 2. Pancreatitis likely secondary to #1. On IV hydration. Monitor level. Analgesics for pain. Proving 3. History of spina bifida. Continue skin care 4. History of chronic decubitus ulcers with possible osteomalacia. wound care consult pending 5. UTI. Final cultures pending. Continue antibiotics. 6. Leukocytosis likely secondary to #1 and #5. Continue antibiotics for now. Follow-up on cultures. 7. Abnormal thyroid panel.Thyroid binding globulin level pending. Disposition plan:Teller Manager to follow. follow up on thyroid binding globulin level. d/c when cleared by consultants Discussed plan of care with Dr. Rosa Problems: Subjective 24 Hr Interval Summary Free Text/Dictation no s/s of distress. no reports of pain Exam/Review of Systems Vital Signs Vitals Vital Signs Date Time Temp Pulse Resp B/P Pulse Ox O2 Delivery O2 Flow Rate FiO2 11/15/16 20:49 98.8 90 18 117/74 97 11/13/16 14:56 Room Air Intake and Output 11/15/16 11/15/16 11/16/16 15:00 23:00 07:00 Intake Total 200 ml 1300 ml 1100 ml Output Total 1200 ml Balance 200 ml 1300 ml -100 ml Exam Constitutional: alert, oriented Head: normocephalic Respiratory: clear to auscultation, congested cough Cardiovascular: regular rate and rhythm Gastrointestinal: soft, tender (More on upper abdominal quadrants) Extremities: other (Noted spina bifida) Neurological: nl mental status, nl speech Skin: other (Decubitus ulcer) Results Result Diagram: 11/15/16 0508 11/16/16 0931 Results 24 hrs Laboratory Tests Test 11/16/16 09:31 Sodium Level 140 Potassium Level 4.0 Chloride Level 110 Carbon Dioxide Level 23 Anion Gap 11 Blood Urea Nitrogen 7 Creatinine 0.51 L Glucose Level 107 Calcium Level 9.2 Total Bilirubin 0.3 Direct Bilirubin 0.00 Indirect Bilirubin 0.3 Aspartate Amino Transf (AST/SGOT) 59 H Alanine Aminotransferase (ALT/SGPT) 44 Alkaline Phosphatase 170 H Total Protein 7.7 Albumin 3.8 Globulin 3.90 H Albumin/Globulin Ratio 0.97 Medications Medications Current Medications Ondansetron HCl (Zofran Inj) 4 mg Q6H PRN IV NAUSEA AND/OR VOMITING; Start at 15:00 Acetaminophen (Tylenol Tab) 650 mg Q6H PRN PO PAIN LEVEL 1-3 OR FEVER; Start at 15:00 Acetaminophen (Tylenol Supp) 650 mg Q6H PRN [place] PAIN LEVEL 1-3 OR FEVER; Start 11/13/16 at 15:00 Docusate Sodium (Colace) 100 mg Q12H PRN PO CONSTIPATION; Start 11/13/16 at 15: 00 Magnesium Hydroxide (Milk Of Mag) 30 ml DAILY PRN PO CONSTIPATION; Start at 15:00 Bisacodyl (Dulcolax Supp) 10 mg DAILY PRN [place] CONSTIPATION; Start 11/13/16 at 15 :00 Pantoprazole 40 mg 40 mg DAILY@06 PO ; Start 11/14/16 at 06:00 Ciprofloxacin/ Dextrose (Cipro Ivpb) 200 ml @ 200 mls/hr BID IVPB Last administered on 11/16/16 09:37; Admin Dose 200 MLS/HR; Start 11/13/16 at 18:30 Morphine Sulfate 2 mg 2 mg Q4H PRN IV pain Last administered on 11/16/16 09:50 ; Admin Dose 2 MG; Start 11/13/16 at 17:00 Dextrose/Sodium Chloride (D5-1/2ns) 1,000 ml @ 100 mls/hr Q10H IV Last administered on 11/16/16 09:39; Admin Dose 100 MLS/HR; Start 11/14/16 at 11:00 XOCHILT LOZOYA Nov 16, 2016 12:37
[2016-11-16 14:17] VITALS: BP 131/82; RESP 18
[2016-11-16 20:59] VITALS: BP 107/67; RESP 16
[2016-11-17 02:47] VITALS: BP 124/68; RESP 18
[2016-11-17] MEDS: PANTOPRAZOLE (EC) 40 MG TAB PO SCH (05:17)
[2016-11-17] MEDS: CIPROFLOXACIN 400MG/D5W 200 ML IVPB SCH (08:38)
[2016-11-17] MEDS: DEXTROSE 5%-0.45% NACL 1,000 ML IV SCH (09:43)
[2016-11-17 15:02] VITALS: BP 136/83; RESP 18
--- NOTE | 2016-11-17 16:19 | PDOCDIS ---
Discharge Instructions DIAGNOSIS Discharge Diagnosis Symptomatic cholelithiasis. CONDITION Patient Condition: Stable HOME CARE INSTRUCTIONS: Diet Instructions: Low Fat /Cholesterol OTHER ORDERS: Other Orders: 1. Regular, preferably low-cholesterol diet. 2. Follow-up with [facility] as scheduled. JONNY BORGES NP Nov 17, 2016 16:19
[2016-11-17] MEDS ORDERED: CIPROFLOXACIN 500 MG TAB PO SCH (18:00)
[2016-11-17] MEDS ORDERED: PENDING SANTYL ORDER FOR WOUND CARE XX PRN (18:30)
[2016-11-17] MEDS: morphine 2 MG INJ IV PRN (18:31)
--- NOTE | 2016-11-17 21:24 | DS ---
DATE OF ADMISSION: 11/13/2016 DATE OF DISCHARGE: 11/17/2016 FINAL DIAGNOSES: 1. Abdominal pain. CT of the abdomen showing cholelithiasis, with no evidence of any cholecystitis. Magnetic resonance cholangiopancreatography negative for any choledocholithiasis. 2. Mild pancreatitis, most probably gallstone-induced, resolved. 3. Chronic decubitus ulcers, with possible underlying chronic osteomyelitis. 4. Colonization of urine with Eschericia coli. 5. Spina bifida. 6. Subclinical hypothyroidism. 7. Non-compliance. HOSPITAL COURSE: This is a 26-year-old male with past medical history of spina bifida, who came to the emergency room with a chief complaint of abdominal pain. The patient was previously admitted to [facility] in August 2016 and was evaluated by General Surgery for underlying cholelithiasis. At that time, the patient was deemed to be not a candidate for any cholecystectomy because of absence of cholecystitis. This time, the patient came in with abdominal pain. The patient underwent a CT scan of the abdomen and pelvis that showed evidence of cholelithiasis, with no evidence of any cholecystitis. The patient underwent an abdominal MRI that was negative for any choledocholithiasis. The patient was started on a diet, and the patient was able to tolerate a regular consistency diet without any significant gastrointestinal symptoms. The patient's abdominal pain has been completely resolved. Of note, the patient has been consistently refusing lab works and nursing assessment, including wound assessment. The patient has multiple decubitus ulcers. The patient's CT scan of the abdomen and pelvis showed decubitus ulcers, with bilateral tracts, extending to the ischia bilaterally, with increased sclerosis, raising the possibility of chronic osteomyelitis. Nevertheless, the patient refused any wound care and wound cultures. The patient was noticed to have urine colonization with E. coli. The patient was treated empirically for any underlying urinary tract infection, provided the patient has spina bifida and frequent urinary catheterization. The patient's abdominal pain has been completely resolved. The patient is refusing any further care, including any further evaluation of the decubitus ulcer wounds. Hence, patient will be discharged home. DISCHARGE DISPOSITION/PLAN: The patient will be discharged home today. The patient was instructed to take a regular, preferably low-cholesterol diet. The patient was instructed to follow up with [facility], as scheduled. The patient has underlying subclinical hypothyroidism; however, this can be evaluated as outpatient with his primary care provider, which is [facility]. DISCHARGE MEDICATIONS: Tramadol 50 mg p.o. q.6 hours p.r.n. pain. PERTINENT LABORATORY AND DIAGNOSTIC DATA: 1. Abdominal MRI. Cholelithiasis, without evidence of acute cholecystitis. No evidence of choledocholithiasis. The common bile duct measures up to 6 mm in diameter. No intrahepatic biliary ductal dilatation. Borderline splenomegaly. Lumbosacral spina bifida. 2. CT scan of the abdomen and pelvis. Cholelithiasis is no longer discretely identified, and the gallbladder wall is not thickened. There is no bile duct dilatation, and pancreas again appears unremarkable. Right-sided [employer] shunt catheter. Spina bifida deformity. Decubitus ulcers seen bilaterally, with tracts extending to the ischia bilaterally, with increased sclerosis, raising the possibility of chronic osteomyelitis, unchanged. 3. Gallbladder ultrasound. The liver demonstrates mildly coarsened echotexture and increased echogenicity, which are nonspecific. Cholelithiasis, without evidence of acute cholecystitis. Dilatation of the common bile duct to 9 mm, suggestive of choledocholithiasis. 4. Urine culture. Positive for E coli. ([place] count 10,000 to 20,000 CFU per mL). 5. Latest CBC: WBC 8.8, hemoglobin 14.5, hematocrit 46.2, platelet count 312. 6. Latest BMP: Sodium 140, potassium 4.2, chloride 110, bicarb is 23, anion gap 11, BUN 7, creatinine 0.5, glucose 107, calcium 9.23. 7. Hemoglobin A1c 5.5. 8. Fasting lipid panel: Triglycerides 55, total cholesterol 129, LDL 96, HDL 22. The case and management of this patient was fully discussed with Dr. Gaming. Approximately 35 minutes was spent on coordinating the discharge on this patient. Dictated By: Chalo Velarde NP /usman/alejandra /Document#: [id number] FILI
[2016-11-18 20:57] LABS: THYROID BINDING GLOBULIN 16.6 mcg/mL (12.7-25.1)
== END 2016-11-17 19:29 | disposition home or self-care (01) | DRG 444 ==
LOC: E/R 11:46 → PP2 14:00
PROVIDERS: ADMIT Internal Medicine; ATTEND Internal Medicine
DX: K80.20 Calculus of gallbladder without cholecystitis without obstruction (principal); K85.10 Biliary acute pancreatitis without necrosis or infection; G82.20 Paraplegia, unspecified; M86.68 Other chronic osteomyelitis, other site; N39.0 Urinary tract infection, site not specified; Q05.9 Spina bifida, unspecified; B96.20 Unspecified Escherichia coli [E. coli] as the cause of diseases classified elsewhere; E03.8 Other specified hypothyroidism; L89.899 Pressure ulcer of other site, unspecified stage; Z87.891 Personal history of nicotine dependence
CPT/HCPCS: 74177; 74181; 76705; 80048; 80053; 80061; 82150; 83036; 83690; 83735; 84100; 84436; 84442; 84443; 84479; 85025; 85610; 85730; 87040; 87086; 90686; J0744; J1170; J2060; J2270; J2405; J2543; J7030; J7042; Q9967